=== PATIENT | female | born 1955 | race Caucasian/White ===

== ENCOUNTER 2016-10-30 19:29 | Emergency (ER) | payer BC ==
[2016-10-30 19:46] VITALS: BP 133/78; PULSE 73; RESP 18; TEMP 97.6
[2016-10-30] MEDS ORDERED: DIPH,PERTUS(ACELL)TETVAC-LF 0.5 ML VIAL IM ONE (20:06)
--- NOTE | 2016-10-30 20:12 | ED ---
General Adult HPI - General Chief complaint: Wound/Laceration Stated complaint: Finger/Lac Time Seen by Provider: 10/30/16 19:50 Source: patient, RN notes reviewed Mode of arrival: wheelchair Limitations: no limitations - History of Present Illness Initial comments: This is a 60-year-old female presents with a laceration to the left middle finger. Patient states this happened around 5:30 when she was using a knife to cut meat. Patient states he actually sliced the top of her middle finger. Patient states she is not up-to-date on her tetanus shot. Patient states she was treated at urgent care for this but they were not able to suture the finger due to too much pain. Patient has medical history significant for diabetes and complex regional pain syndrome. Patient denies any numbness/weakness or tingling. Patient denies any recent fever, chills, shortness breath, chest pain , abdominal pain, nausea/vomiting/diarrhea, back pain, hematuria, headache, or visual changes, or any other complaints. - Related Data Home Medications Medication Instructions Recorded Confirmed DULoxetine HCL [Cymbalta] 30 mg PO HS 10/03/15 09/24/16 Nicotine [Nicotrol] 1 applic INHALATION Q4H PRN 10/03/15 09/24/16 metFORMIN HCL [Glucophage] 500 mg PO QAM 12/24/15 09/24/16 Cyclobenzaprine [Flexeril] 5 mg PO TID PRN 07/28/16 09/24/16 hydrOXYzine PAMOATE [Vistaril] 25 mg PO BID PRN 07/28/16 09/24/16 oxyCODONE-APAP 10-325MG [Percocet 1 - 2 tab PO Q6HR PRN 07/28/16 09/24/16 10-325 mg] Previous Rx's Medication Instructions Recorded Cephalexin [Keflex] 500 mg PO Q12HR 5 Days 10/30/16 Allergies Allergy/AdvReac Type Severity Reaction Status Date / Time Penicillins Allergy Unknown Verified 10/30/16 19:46 Sulfa (Sulfonamide Allergy Rash/Hives Verified 10/30/16 19:46 Antibiotics) steriods AdvReac "increased Uncoded 10/30/16 19:46 blood sugar very high" Review of Systems ROS Statement: Those systems with pertinent positive or pertinent negative responses have been documented in the HPI. ROS Other: All systems not noted in ROS Statement are negative. Past Medical History Past Medical History: Diabetes Mellitus, Hyperlipidemia, Hypertension Additional Past Medical History / Comment(s): hx gout, spine-T3 hemangioma, L shoulder torn rotator cuff, varicose veins, severe carpal tunnel, spinal disk problems, Reflex Sympathetic Dystrophy History of Any Multi-Drug Resistant Organisms: None Reported Past Surgical History: Back Surgery, Bladder Surgery, Cholecystectomy, Hysterectomy, Joint Replacement, Orthopedic Surgery Additional Past Surgical History / Comment(s): lumbar laminectomy decompression interbody fusion L4-5, cervical FUSION, TOTAL LEFT KNEE, LEFT KNEE REVISION , BLADDER SUSPENSION, colonoscopy, florence bunionectomies , bilateral "eye lifts" Past Anesthesia/Blood Transfusion Reactions: Motion Sickness, Postoperative Nausea & Vomiting (PONV) Past Psychological History: Anxiety, Depression, Panic Disorder Additional Psychological History / Comment(s): . Smoking Status: Former smoker Past Alcohol Use History: None Reported Additional Past Alcohol Use History / Comment(s): STARTED SMOKING AGE 14, 1969, QUIT 2007, USES NICOTROL INHALER daily Past Drug Use History: None Reported - Past Family History Mother Family Medical History: Cancer Additional Family Medical History / Comment(s): Mother of lung cancer at age 58 yrs. Father Additional Family Medical History / Comment(s): Father was an alcoholic. General Exam - General Exam Comments Initial Comments: General: The patient is awake and alert, in no distress, and does not appear acutely ill. Neck: The neck is supple, there is no tenderness or JVD. Cardiovascular: There is a regular rate and rhythm. No murmur, rub or gallop is appreciated. Respiratory: Lungs are clear to auscultation, respirations are non-labored, breath sounds are equal. No wheezes, stridor, rales, or rhonchi. Musculoskeletal: There is tenderness to palpation over the third digit of the left hand that correlates with a laceration to the tip of the third digit of the left hand. Full range of motion, strength 5/5 and Sensation intact. Radial pulses 2+ bilaterally. Capillary refill is normal at less than 2 seconds. Neurological: A&O x 3. CN II-XII intact, There are no obvious motor or sensory deficits. Coordination appears grossly intact. Speech is normal. Skin: there is a laceration that is approximately 1.5 cm to the 3rd digit of the left hand distal to the DIP joint. Skin is warm and dry and no rashes or lesions are noted. Psychiatric: Normal mood and affect. Limitations: no limitations Course Vital Signs 10/30/16 19:41 Temperature 97.6 F Pulse Rate 73 Respiratory 18 Rate Blood Pressure 133/78 O2 Sat by Pulse 99 Oximetry Medical Decision Making - Medical Decision Making This is a 60-year-old female with a laceration to the tip of the third digit of the left hand. On physical exam there is a laceration that is approximately 1.5 cm to the 3rd digit of the left hand distal to the DIP joint. An x-ray done of the hand in review showed: Focal soft tissue swelling. The bones and joints are negative for acute findings. There is no definite radiopaque foreign body. Report read by Dr. Diaz. After digital block was done. Patient's was also present in the room demanded that the patient received "Valium or that I speak with a doctor" before I proceed. The skin was anesthetized with 1% lidocaine. A digital block was used. The laceration was then cleansed and irrigated with normal saline. The wound was inspected, and there was no evidence of injury to deep structures. No foreign body was noted in the wound. A total of 5 skin sutures were placed utilizing 5- 0 Ethilon. Laceration is approx 1.5 cm. discussed that sutures should be removed in 8-10 days. I discussed the patient will be put on a course of Keflex to prevent infection. I discussed suture care. I discussed return parameters. Discussed that patient should follow up with PCP in one to 2 days or return to the [facility] for any worsening symptoms or for any further concerns. Patient and who was also present in the room were receptive to this plan and patient will be discharged home. Disposition Clinical Impression: Laceration Disposition: HOME SELF-CARE Condition: Good Instructions: Care For Your Stitches (ED), Laceration (ED) Additional Instructions: Presents sutures removed in 8-10 days. Please finish entire course of antibiotics. Please do not submerge the wound in water but rinsing and showering are okay. Please follow-up with family doctor in the next 2 days of symptoms have not improved. Please return to emergency room if the symptoms increase or worsen or for any other concerns. Prescriptions: Cephalexin [Keflex] 500 mg PO Q12HR 5 Days Referrals: Megan Pickens DO [Primary Care Provider] - 1-2 days Time of Disposition: 21:27
--- NOTE | 2016-10-30 20:53 | XR ---
EXAMINATION TYPE: XR hand complete LT DATE OF EXAM: 10/30/2016 8:13 PM COMPARISON: NONE HISTORY: Distal end of the left middle finger cut, with knife TECHNIQUE: 3 views FINDINGS: There is mild-plus soft tissue swelling about the distal phalanx of the middle finger. Ther e is no definite radiopaque foreign body. The bones and joints are negative for acute findings. Scattered osteoarthritis changes are appreciated, relatively mild in degree. IMPRESSION: FOCAL SOFT TISSUE SWELLING.
--- NOTE | 2016-10-30 21:30 | ED ---
Medical Decision Making - Medical Decision Making After the patient requested to speak with a doctor. I checked that the affected finger was anesthetized enough to do sutures. At this time the patient agreed to proceed with sutures without my consulting with a physician and without Valium as they requested. Patient tolerated the procedure well. Disposition Clinical Impression: Laceration Disposition: HOME SELF-CARE Condition: Good Instructions: Care For Your Stitches (ED), Laceration (ED) Additional Instructions: Presents sutures removed in 8-10 days. Please finish entire course of antibiotics. Please do not submerge the wound in water but rinsing and showering are okay. Please follow-up with family doctor in the next 2 days of symptoms have not improved. Please return to emergency room if the symptoms increase or worsen or for any other concerns. Prescriptions: Cephalexin [Keflex] 500 mg PO Q12HR 5 Days Referrals: Megan Pickens DO [Primary Care Provider] - 1-2 days Procedures - Procedures Initial comment: The skin was anesthetized with 1% lidocaine. A digital block was used. The laceration was then cleansed and irrigated with normal saline. The wound was inspected, and there was no evidence of injury to deep structures. No foreign body was noted in the wound. A total of 5 skin sutures were placed utilizing 5- 0 Ethilon. Laceration is approx 1.5 cm
== END 2016-10-30 21:33 | disposition home or self-care (01) ==
LOC: EC 19:29
DX: S61.213A Laceration without foreign body of left middle finger without damage to nail, initial encounter (principal); W26.0XXA Contact with knife, initial encounter; Y93.G3 Activity, cooking and baking; E11.9 Type 2 diabetes mellitus without complications; G90.50 Complex regional pain syndrome I, unspecified; Z79.84 Long term (current) use of oral hypoglycemic drugs; Z79.899 Other long term (current) drug therapy; Z88.2 Allergy status to sulfonamides; Z88.0 Allergy status to penicillin; Z88.8 Allergy status to other drugs, medicaments and biological substances; F41.9 Anxiety disorder, unspecified; Z87.891 Personal history of nicotine dependence; Z23 Encounter for immunization
CPT/HCPCS: 12001; 90471; 90715; 99283

== ENCOUNTER 2017-01-27 08:08 | Emergency (ER) | payer MEDICARE, BC ==
[2017-01-27 08:14] VITALS: BP 137/85; PULSE 87; RESP 16; TEMP 97
[2017-01-27] MEDS ORDERED: HYDROmorphone 1 MG/ML 1 ML SYRINGE IM STA (08:34)
--- NOTE | 2017-01-27 08:39 | ED ---
Back Pain HPI - General Chief Complaint: Back Pain/Injury Stated Complaint: back pain Time Seen by Provider: 01/27/17 08:21 Source: patient, RN notes reviewed Limitations: no limitations - History of Present Illness Initial Comments: 61-year-old female presents emergency Department with chief complaint of chronic back pain. Patient just saw Dr. Ayers yesterday for this back pain is scheduled for an MRI and follow-up with Dr. Davis her pain management on Thursday. Patient states that she is been running out of her pain managed that she has a documented a day and half pain is left. Patient states she's had increased pain in which he told Dr. Ayers yesterday. Dr. Ayers feels this is from L3 lumbar radiculopathy. Patient had x-rays performed of her pelvis, hip and back. This was reviewed by Dr. Ayers. Patient states she was here for pre- MRI lab work and states that she can't tolerate the pain so she came here for pain relief. Patient denies any bowel bladder incontinence or retention. Denies any saddle anesthesias. - Related Data Home Medications Medication Instructions Recorded Confirmed DULoxetine HCL [Cymbalta] 30 mg PO HS 10/03/15 09/24/16 Nicotine [Nicotrol] 1 applic INHALATION Q4H PRN 10/03/15 09/24/16 metFORMIN HCL [Glucophage] 500 mg PO QAM 12/24/15 09/24/16 Cyclobenzaprine [Flexeril] 5 mg PO TID PRN 07/28/16 09/24/16 hydrOXYzine PAMOATE [Vistaril] 25 mg PO BID PRN 07/28/16 09/24/16 oxyCODONE-APAP 10-325MG [Percocet 1 - 2 tab PO Q6HR PRN 07/28/16 09/24/16 10-325 mg] Previous Rx's Medication Instructions Recorded Cephalexin [Keflex] 500 mg PO Q12HR 5 Days 10/30/16 HYDROcodone/APAP 10-325MG [Sells 1 tab PO Q6H PRN #15 tab 01/27/17 10-325] Allergies Allergy/AdvReac Type Severity Reaction Status Date / Time Penicillins Allergy Unknown Verified 01/27/17 08:14 Sulfa (Sulfonamide Allergy Rash/Hives Verified 01/27/17 08:14 Antibiotics) steriods AdvReac "increased Uncoded 10/30/16 19:46 blood sugar very high" Review of Systems ROS Statement: Those systems with pertinent positive or pertinent negative responses have been documented in the HPI. ROS Other: All systems not noted in ROS Statement are negative. Past Medical History Past Medical History: Diabetes Mellitus, Hyperlipidemia, Hypertension Additional Past Medical History / Comment(s): hx gout, spine-T3 hemangioma, L shoulder torn rotator cuff, varicose veins, severe carpal tunnel, spinal disk problems, Reflex Sympathetic Dystrophy History of Any Multi-Drug Resistant Organisms: None Reported Past Surgical History: Back Surgery, Bladder Surgery, Cholecystectomy, Hysterectomy, Joint Replacement, Orthopedic Surgery Additional Past Surgical History / Comment(s): lumbar laminectomy decompression interbody fusion L4-5, cervical FUSION, TOTAL LEFT KNEE, LEFT KNEE REVISION , BLADDER SUSPENSION, colonoscopy, florence bunionectomies , bilateral "eye lifts" Past Anesthesia/Blood Transfusion Reactions: Motion Sickness, Postoperative Nausea & Vomiting (PONV) Past Psychological History: Anxiety, Depression, Panic Disorder Additional Psychological History / Comment(s): . Smoking Status: Former smoker Past Alcohol Use History: None Reported Additional Past Alcohol Use History / Comment(s): STARTED SMOKING AGE 14, 1970, QUIT 2007, USES NICOTROL INHALER daily Past Drug Use History: None Reported - Past Family History Mother Family Medical History: Cancer Additional Family Medical History / Comment(s): Mother of lung cancer at age 58 yrs. Father Additional Family Medical History / Comment(s): Father was an alcoholic. General Exam Limitations: no limitations General appearance: alert, in no apparent distress Head exam: Present: atraumatic, normocephalic, normal inspection Respiratory exam: Present: normal lung sounds bilaterally. Absent: respiratory distress, wheezes, rales, rhonchi, stridor Cardiovascular Exam: Present: regular rate, normal rhythm, normal heart sounds. Absent: systolic murmur, diastolic murmur, rubs, gallop, clicks GI/Abdominal exam: Present: soft, normal bowel sounds. Absent: distended, tenderness, guarding, rebound, rigid Extremities exam: Present: other (Lower extremity strength equal bilaterally neurovascular intact) Back exam: Present: tenderness, paraspinal tenderness. Absent: normal inspection (Old surgical scar noted), full ROM (Decreased range of motion secondary to pain), vertebral tenderness Neurological exam: Present: reflexes normal. Absent: motor sensory deficit Course Vital Signs 01/27/17 08:10 Temperature 97 F L Pulse Rate 87 Respiratory 16 Rate Blood Pressure 137/85 O2 Sat by Pulse 98 Oximetry Medical Decision Making - Medical Decision Making 61-year-old female presented for back pain. Patient has chronic back pain had surgery one year ago. Patient had an evaluation by orthopedic surgeon yesterday. Patient scheduled for MRI. Patient be given pain relief patient we given prescriptions Sells though she was advised that she needs to contact her pain management physician if she has not filled the prescription. Patient agrees to plan. Disposition Clinical Impression: Chronic back pain, Lumbar radiculopathy Disposition: HOME SELF-CARE Condition: Stable Instructions: Chronic Back Pain (ED) Additional Instructions: Please return to the Emergency Department if symptoms worsen or any other concerns. Prescriptions: HYDROcodone/APAP 10-325MG [Sells 10-325] 1 tab PO Q6H PRN #15 tab PRN Reason: pain Referrals: Megan Pickens DO [Primary Care Provider] - 1-2 days Time of Disposition: 08:39
== END 2017-01-27 09:08 | disposition home or self-care (01) ==
LOC: EC 08:08
DX: M54.16 Radiculopathy, lumbar region (principal); E11.9 Type 2 diabetes mellitus without complications; F32.9 Major depressive disorder, single episode, unspecified; F41.0 Panic disorder [episodic paroxysmal anxiety]; Z87.891 Personal history of nicotine dependence; Z79.84 Long term (current) use of oral hypoglycemic drugs; Z79.899 Other long term (current) drug therapy; Z88.0 Allergy status to penicillin; Z88.2 Allergy status to sulfonamides; Z88.8 Allergy status to other drugs, medicaments and biological substances
CPT/HCPCS: 99283; 96372; J1170

== ENCOUNTER → 2017-02-12 | Outpatient (CLI) | payer BC, MEDICARE, OTHER ==
[2017-02-12 09:28] LABS: EKG EKG PERFORMED
[2017-02-12 09:43] LABS: Basophils # (A) 0.1 k/uL (0-0.2); Basophils % (A) 1 %; CH 30.5; CHCM 32.5; Eosinophils # (A) 0.2 k/uL (0-0.7); Eosinophils % (A) 2 %; HCT 42.6 % (34.0-46.0); HDW 2.23; HGB 13.8 gm/dL (11.4-16.0); Luc # (Auto) 0.18; Luc % (Auto) 2; Lymphocytes # (A) 2.9 k/uL (1.0-4.8); Lymphocytes % (A) 38 %; MCH 30.5 pg (25.0-35.0); MCHC 32.4 g/dL (31.0-37.0); MCV 94.1 fL (80.0-100.0); Mean Platelet Volume 6.9; Monocytes # (A) 0.6 k/uL (0-1.0); Monocytes % (A) 8 %; Neutrophils # (A) 3.8 k/uL (1.3-7.7); Neutrophils % (A) 49 %; RBC 4.53 m/uL (3.80-5.40); RDW 13.2 % (11.5-15.5); WBC 7.8 k/uL (3.8-10.6); WBC (Perox) 7.53
[2017-02-12 09:59] LABS: INR 1.1 (<1.1); Partial Thromboplastin Time 28.2 sec (22.0-30.0); Prothrombin Time 10.8 sec (9.0-12.0)
[2017-02-12 10:03] LABS: Appearance,Urine Cloudy (Clear); Bacteria,Urine Rare /hpf; Bilirubin,Urine Negative (Negative); Glucose,Urine (UA) 3+ (Negative); Ketones,Urine Negative (Negative); Leukocyte Esterase,Urine Large (Negative); Nitrite,Urine Negative (Negative); PH, Urine 5.5 (5.0-8.0); Particle Count 7604; Protein,Urine Negative (Negative); Specific Gravity,Urine 1.007 (1.001-1.035); Squamous Epithelial Cell,Urine 5 /hpf (0-4); UA Billing (MACRO vs. MICRO) MICRO; Urobilinogen,Urine <2.0 mg/dL (<2.0); WBC,Urine 58 /hpf (0-5)
[2017-02-12 10:06] LABS: ALT 54 U/L (9-52); AST 26 U/L (14-36); Alkaline Phosphatase 108 U/L (38-126); Anion Gap 11 mmol/L; Blood Urea Nitrogen 10 mg/dL (7-17); Calcium 9.3 mg/dL (8.4-10.2); Carbon Dioxide 26 mmol/L (22-30); Chloride 101 mmol/L (98-107); Glucose 180 mg/dL (74-99); Non-African American GFR(MDRD) 60 (>60 ml/min/1.73 sqM); Sodium 138 mmol/L (137-145); Total Bilirubin 0.5 mg/dL (0.2-1.3); Total Protein 7.3 g/dL (6.3-8.2)
== END | disposition home or self-care (01) ==
LOC: LABWHC1 08:45
DX: Z01.818 Encounter for other preprocedural examination (principal); M48.00 Spinal stenosis, site unspecified; Z01.810 Encounter for preprocedural cardiovascular examination
CPT/HCPCS: 36415; 80053; 81001; 85025; 85610; 85730; 93005

== ENCOUNTER → 2017-03-27 | Outpatient (CLI) | payer OTHER ==
--- NOTE | 2017-03-27 10:36 | XR ---
EXAMINATION TYPE: XR lumbar spine 2 or 3V DATE OF EXAM: 03/27/2017 COMPARISON: 08/29/2016 HISTORY: Back pain TECHNIQUE: Three-view lumbar spine FINDINGS: Pedicle screws are present L3-L4 and L5. Disc spacer present L3-4 L4-5. Laminectomy at L3 a nd L4 evident. The pedicle screws at L3 been added as well as a disc spacer at L3-4 from the prior ex am. Alignment appears normal. Some spondylosis is present. Vertebral body heights are preserved. IMPRESSION: 1. Postsurgical changes. No acute osseous abnormality evident.
== END ==
LOC: RADXRMAIN 09:18
DX: M54.5 Low back pain (principal); Z98.890 Other specified postprocedural states
CPT/HCPCS: 72100

== ENCOUNTER → 2017-06-25 | Outpatient (CLI) | payer OTHER, MEDICARE, BC ==
--- NOTE | 2017-06-25 09:48 | XR ---
EXAMINATION TYPE: XR lumbar spine 2 or 3V DATE OF EXAM: 06/25/2017 CLINICAL HISTORY: Back pain, follow up study for fusion surgery 4 months ago TECHNIQUE: Frontal and lateral images of the lumbar spine are obtained. COMPARISON: Lumbar spine x-ray March 27, 2017 FINDINGS: There are 5 lumbar type vertebral bodies redemonstrated. The lumbar spine redemonstrates satisfactory alignment without evidence of acute fracture or dislocation. Vertebral body heights and disk space heights are within normal limits above L3 level. There is posterior fusion hardware L3-L5 levels bilaterally with laminectomy defects and spinous process resection redemonstrated. Metallic d isc material L3-L4 and L4-L5 levels is again seen. There is mild anterior spurring in the lower thora cic and upper lumbar spine redemonstrated. Some vascular calcification of overlying abdominal aorta i s again seen. Cholecystectomy clips are noted. IMPRESSION: Overall stable findings, postsurgical changes L3-L5 levels with stable and satisfactory a lignment redemonstrated.
--- NOTE | 2017-06-25 11:15 | MR ---
EXAMINATION TYPE: MR lumbar spine wo con DATE OF EXAM: 06/25/2017 COMPARISON: Radiographs 06/25/2017 HISTORY: 61-year-old female spondylolisthesis lsp, back pain, follow-up lumbar fusion 4 months ago. TECHNIQUE: Multiplanar, multisequence images of the lumbar spine were acquired. FINDINGS: Surgical changes of L3-L5 posterior and interbody fusion with fixed grade 1 retrolisthesis at L4-L5. Corresponding laminectomies. There appears to be trace retrolisthesis above the fusion at L2-L3. Additional trace grade 1 retroli sthesis at T12-L1. Mild to moderate degenerative disc disease with variable mild disc desiccation, minimal disc interspa ce narrowing, and bulging discs. Facet arthropathy throughout the lumbar spine. Conus medullaris is normal. No suspicious bone marrow replacement. At T12-L1, mild diffuse disc bulge without significant canal or foraminal stenosis. Trace grade 1 ret rolisthesis. At L1-L2, mild diffuse disc bulge and mild facet degenerative change. No significant canal or foramin al stenosis. At L2-L3, the level above the fusion, there is hypertrophic facet arthropathy with ligamentum flavum thickening, trace grade 1 retrolisthesis, and bulging disc. Changes mildly narrow the spinal canal an d cause mild bilateral neural foraminal stenosis. At the fused L3-L4 level, there is residual eccentric rightward bulging disc. Dorsal decompression of the spinal canal. There may be at least a moderate right neuroforaminal stenosis. Limitations due to metal hardware artifact. At the fused L4-L5 level, there is grade 1 anterolisthesis with dorsal decompression of the thecal sa c. There is mild right neuroforaminal stenosis. At L5-S1, there is facet degenerative change and bulging disc. Changes result in mild left greater th an right neuroforaminal stenosis without spinal canal stenosis. No prevertebral or paravertebral soft tissue abnormality seen. Prominent urinary bladder distention probably voluntary retention can be correlated clinically. IMPRESSION: 1. Status post L3-L5 posterior and interbody fusion with a fixed grade 1 anterolisthesis at L4-L5. Th ere is trace grade 1 retrolisthesis above the fusion at L2-L3 and also at T12-L1. 2. Moderate multilevel degenerative disc disease and facet arthropathy. 3. Bulging disks, thickened ligamentum flavum, and the trace retrolisthesis contribute to mild spinal canal stenosis above the fusion at L2-L3. Mild bilateral neuroforaminal stenosis at this level. 4. Suspect at least a moderate right neuroforaminal stenosis at the fused L3-L4 level secondary to re sidual eccentric disc material. 5. Variable mild neuroforaminal narrowing at L4-L5 and L5-S1 as above.
== END | disposition home or self-care (01) ==
LOC: RADMRIMAIN 09:16
DX: M48.02 Spinal stenosis, cervical region (principal); M99.73 Connective tissue and disc stenosis of intervertebral foramina of lumbar region; M43.16 Spondylolisthesis, lumbar region; M51.36 Other intervertebral disc degeneration, lumbar region; M46.96 Unspecified inflammatory spondylopathy, lumbar region; Z98.890 Other specified postprocedural states
CPT/HCPCS: 72100; 72148

== ENCOUNTER → 2017-11-12 | Outpatient (CLI) | payer MEDICARE, BC ==
--- NOTE | 2017-11-12 10:12 | XR ---
EXAMINATION TYPE: XR lumbar spine 2 or 3V DATE OF EXAM: 11/12/2017 CLINICAL HISTORY: Low back pain since lumbar surgery TECHNIQUE: Frontal and lateral images of the lumbar spine are obtained. COMPARISON: None FINDINGS: There are 5 lumbar type vertebral bodies identified. Surgical fixation is seen of the L3-L 5 vertebral bodies with intervertebral disc cages, pedicular screws and fixation rods. Resection of t he posterior elements is also seen at these levels. The lumbar spine shows satisfactory alignment wi thout evidence of acute fracture or dislocation. Mild multilevel degenerative changes of the thoracic spine are seen as anterior osteophytes, endplate sclerosis, intervertebral disc space narrowing and facet arthropathy. There is a minimal levoscoliotic curvature of the lumbar spine. The overlying sof t tissue appears unremarkable. Cholecystectomy clips are incidentally noted. IMPRESSION: 1. Postoperative changes of the lower lumbar spine without evidence of malalignment. 2. No evidence of acute fracture of the lumbar spine. 3. Mild multilevel degenerative changes of the lumbar spine and minimal levoscoliotic curvature.
== END | disposition home or self-care (01) ==
LOC: RADXRMAIN 09:29
DX: M47.816 Spondylosis without myelopathy or radiculopathy, lumbar region (principal); Z98.890 Other specified postprocedural states
CPT/HCPCS: 72100

== ENCOUNTER 2018-01-09 08:31 | Emergency (ER) | payer OTHER, MEDICARE, BC ==
[2018-01-09] MEDS ORDERED: MAG HYDROX/AL HYDROX/SIMETH 30 ML, HYOSCYAMINE ELIXIR 10 ML, CIMETIDINE HCL 300 MG PO STA ×3 (08:50)
[2018-01-09] MEDS ORDERED: MORPHINE SULFATE/PF 10MG/10ML VL IM STA ×2 (08:50→11:10)
[2018-01-09] MEDS ORDERED: DIAZEPAM 5 MG/ML 2 ML INJ IM ONE (08:50)
--- NOTE | 2018-01-09 09:03 | ED ---
General Adult HPI - General Chief complaint: Back Pain/Injury Stated complaint: Abd Pain, back pain Time Seen by Provider: 01/09/18 08:37 Source: patient, RN notes reviewed Mode of arrival: wheelchair Limitations: no limitations - History of Present Illness Initial comments: 62-year-old female presents for flareup of chronic back pain. She takes narcotics at home for her back pain. She had a recent sciatic ablation and states she just continues to have this terrible pain. Her doctor said it could take up to 3 weeks for it to improve but she does not feel as if she is better and she is 2 weeks out. They state they're here for pain control. She states the Motrin has been causing her stomach to hurt as well. They deny any nausea vomiting any loss of bowel or bladder function. The simply needs something to help reduce the pain so that the patient can get some rest. Patient states it' s more in the right buttock area patient is very tearful on exam. Patient denies any recent fever, chills, shortness of breath, chest pain, nausea vomiting, numbness or tingling, dysuria or hematuria, constipation or diarrhea, headaches or visual changes, or any other current symptoms. - Related Data Home Medications Medication Instructions Recorded Confirmed DULoxetine HCL [Cymbalta] 30 mg PO HS 10/03/15 09/15/17 oxyCODONE-APAP 10-325MG [Percocet 0.5 - 1 tab PO Q6HR PRN 07/28/16 09/15/17 10-325 mg] Diazepam [Valium] 2.5 - 5 mg PO TID PRN 09/07/17 09/15/17 Previous Rx's Medication Instructions Recorded Omeprazole [PriLOSEC] 20 mg PO AC-BID #60 cap 09/15/17 hydrOXYzine PAMOATE [Vistaril] 25 mg PO BID PRN #20 cap 01/09/18 Allergies Allergy/AdvReac Type Severity Reaction Status Date / Time Penicillins Allergy Unknown Verified 01/09/18 08:32 Sulfa (Sulfonamide Allergy Rash/Hives Verified 01/09/18 08:32 Antibiotics) steriods AdvReac "increased Uncoded 01/09/18 08:32 blood sugar very high" Review of Systems ROS Statement: Those systems with pertinent positive or pertinent negative responses have been documented in the HPI. ROS Other: All systems not noted in ROS Statement are negative. Past Medical History Past Medical History: Diabetes Mellitus, Hyperlipidemia, Hypertension Additional Past Medical History / Comment(s): diet controlled diabetes; spine- T3 hemangioma, L shoulder torn rotator cuff, varicose veins, severe carpal tunnel, spinal disk problems, Reflex Sympathetic Dystrophy; Hx gout History of Any Multi-Drug Resistant Organisms: None Reported Past Surgical History: Back Surgery, Bladder Surgery, Cholecystectomy, Hysterectomy, Joint Replacement, Orthopedic Surgery Additional Past Surgical History / Comment(s): lumbar laminectomy decompression interbody fusion L4-5, cervical FUSION, TOTAL LEFT KNEE, LEFT KNEE REVISION , BLADDER SUSPENSION, colonoscopy, florence bunionectomies , bilateral "eye lifts", nerve ablation on sacrum Past Anesthesia/Blood Transfusion Reactions: Motion Sickness, Postoperative Nausea & Vomiting (PONV) Past Psychological History: Anxiety, Depression, Panic Disorder Smoking Status: Former smoker Past Alcohol Use History: None Reported Past Drug Use History: None Reported - Past Family History Mother Family Medical History: Cancer Additional Family Medical History / Comment(s): Mother of lung cancer at age 58 yrs. Father Additional Family Medical History / Comment(s): Father was an alcoholic. General Exam Limitations: no limitations General appearance: alert, in distress (moderate) Eye exam: Present: normal appearance, PERRL, EOMI. Absent: scleral icterus, conjunctival injection, periorbital swelling Neck exam: Present: normal inspection. Absent: tenderness, meningismus, lymphadenopathy Respiratory exam: Present: normal lung sounds bilaterally. Absent: respiratory distress, wheezes, rales, rhonchi, stridor Cardiovascular Exam: Present: regular rate, normal rhythm, normal heart sounds. Absent: systolic murmur, diastolic murmur, rubs, gallop, clicks GI/Abdominal exam: Present: soft, normal bowel sounds. Absent: distended, tenderness, guarding, rebound, rigid Back exam: Present: normal inspection Neurological exam: Present: alert, oriented X3 Psychiatric exam: Present: normal affect, normal mood Skin exam: Present: warm, dry, intact, normal color. Absent: rash Course Vital Signs 01/09/18 08:32 Pulse Rate 86 Respiratory 20 Rate Blood Pressure 196/93 O2 Sat by Pulse 97 Oximetry Medical Decision Making - Medical Decision Making 62-year-old female presents for flareup of her chronic back pain here for pain management. At this time patient has been given injections and is feeling better. At this time we did discuss continued follow-up outpatient Michael with the pain management doctor. We did discuss return parameters all questions. Patient and family do agree to follow up at this time we will discharge. Disposition Clinical Impression: Chronic pain Disposition: HOME SELF-CARE Condition: Stable Instructions: Chronic Back Pain (ED) Additional Instructions: Please use medication as discussed. Please follow up with family doctor if symptoms have not improved over the next two days. Please return to the emergency room if your symptoms increase or worsen or for any other concerns. Prescriptions: hydrOXYzine PAMOATE [Vistaril] 25 mg PO BID PRN #20 cap PRN Reason: Anxiety Referrals: Seda Christina III, MD [Primary Care Provider] - 1-2 days Time of Disposition: 11:09
[2018-01-09] MEDS ORDERED: HALOPERIDOL LACTATE 5 MG/ML 1 ML VIAL IM STA (10:03)
[2018-01-09] MEDS ORDERED: ONDANSETRON ODT 4 MG TAB PO STA (10:26)
[2018-01-09 12:00] VITALS: BP 152/81; PULSE 66; RESP 18; TEMP 97.5
== END 2018-01-09 12:00 | disposition home or self-care (01) ==
LOC: EC 08:31
DX: G89.29 Other chronic pain (principal); M54.9 Dorsalgia, unspecified; F32.9 Major depressive disorder, single episode, unspecified; F41.0 Panic disorder [episodic paroxysmal anxiety]; Z87.891 Personal history of nicotine dependence; Z79.899 Other long term (current) drug therapy; Z88.0 Allergy status to penicillin; Z88.2 Allergy status to sulfonamides; Z88.8 Allergy status to other drugs, medicaments and biological substances
CPT/HCPCS: 99283; 96372 ×4; J1630; J3360; J2270

== ENCOUNTER 2018-03-10 05:11 | Observation (INO) | payer MEDICARE, BC ==
[2018-03-10] MEDS ORDERED: SODIUM CHLORIDE 0.9% 1,000 ML IV STA (05:38)
[2018-03-10] MEDS ORDERED: MORPHINE SULFATE 4 MG/ML SYRINGE IV STA (05:38)
[2018-03-10] MEDS ORDERED: ONDANSETRON 4 MG/2 ML VIAL IVP STA (05:41)
[2018-03-10 06:13] LABS: Basophils # (A) 0.1 k/uL (0-0.2); Basophils % (A) 1 %; Eosinophils # (A) 0.2 k/uL (0-0.7); Eosinophils % (A) 2 %; HCT 36.6 % (34.0-46.0); HGB 12.3 gm/dL (11.4-16.0); Lymphocytes # (A) 2.9 k/uL (1.0-4.8); Lymphocytes % (A) 27 %; MCH 29.2 pg (25.0-35.0); MCHC 33.6 g/dL (31.0-37.0); MCV 86.8 fL (80.0-100.0); Mean Platelet Volume 6.7; Monocytes # (A) 0.9 k/uL (0-1.0); Monocytes % (A) 8 %; Neutrophils # (A) 6.4 k/uL (1.3-7.7); Neutrophils % (A) 60 %; Platelet Count 291 k/uL (150-450); RBC 4.22 m/uL (3.80-5.40); RDW 12.4 % (11.5-15.5); WBC 10.6 k/uL (3.8-10.6)
[2018-03-10] MEDS ORDERED: LORazepam 2 MG/ML INJ IV STA (06:35)
[2018-03-10 06:36] LABS: ALT 30 U/L (9-52); AST 18 U/L (14-36); Albumin 3.4 g/dL (3.5-5.0); Alkaline Phosphatase 85 U/L (38-126); Anion Gap 9 mmol/L; Blood Urea Nitrogen 10 mg/dL (7-17); Calcium 8.3 mg/dL (8.4-10.2); Carbon Dioxide 24 mmol/L (22-30); Chloride 103 mmol/L (98-107); Glucose 126 mg/dL (74-99); Sodium 136 mmol/L (137-145); Total Bilirubin 0.5 mg/dL (0.2-1.3)
--- NOTE | 2018-03-10 06:55 | ED ---
Back Pain HPI - General Chief Complaint: Back Pain/Injury Stated Complaint: headache,back pain Time Seen by Provider: 03/10/18 05:24 Source: patient Limitations: no limitations - History of Present Illness Initial Comments: 62 years old female presents with a worsening of the back pain, she denies any trauma she has a chronic back pain she had the surgery at the lumbar spine she also had a stimulator for him on now February 25 and was not effective the stimulator was removed on now March 09. Now she is complaining about the headache and the back pain is worse she denies any fever no chills no chest pain no shortness of breath no abdominal pain no bowel or bladder dysfunction - Related Data Home Medications Medication Instructions Recorded Confirmed DULoxetine HCL [Cymbalta] 30 mg PO HS 10/03/15 03/10/18 oxyCODONE-APAP 10-325MG [Percocet 0.5 - 1 tab PO Q6HR PRN 07/28/16 03/10/18 10-325 mg] Diazepam [Valium] 2.5 - 5 mg PO TID PRN 09/07/17 03/10/18 Allergies Allergy/AdvReac Type Severity Reaction Status Date / Time Penicillins Allergy Unknown Verified 03/10/18 07:53 Sulfa (Sulfonamide Allergy Rash/Hives Verified 03/10/18 07:53 Antibiotics) steriods AdvReac "increased Uncoded 01/09/18 08:32 blood sugar very high" Review of Systems ROS Statement: Those systems with pertinent positive or pertinent negative responses have been documented in the HPI. ROS Other: All systems not noted in ROS Statement are negative. Past Medical History Past Medical History: Diabetes Mellitus, Hyperlipidemia, Hypertension Additional Past Medical History / Comment(s): diet controlled diabetes; spine- T3 hemangioma, L shoulder torn rotator cuff, varicose veins, severe carpal tunnel, spinal disk problems, Reflex Sympathetic Dystrophy; Hx gout History of Any Multi-Drug Resistant Organisms: None Reported Past Surgical History: Back Surgery, Bladder Surgery, Cholecystectomy, Hysterectomy, Joint Replacement, Orthopedic Surgery Additional Past Surgical History / Comment(s): lumbar laminectomy decompression interbody fusion L4-5, cervical FUSION, TOTAL LEFT KNEE, LEFT KNEE REVISION , BLADDER SUSPENSION, colonoscopy, florence bunionectomies , bilateral "eye lifts", nerve ablation on sacrum Past Anesthesia/Blood Transfusion Reactions: Motion Sickness, Postoperative Nausea & Vomiting (PONV) Past Psychological History: Anxiety, Depression, Panic Disorder Smoking Status: Former smoker Past Alcohol Use History: None Reported Past Drug Use History: None Reported - Past Family History Mother Family Medical History: Cancer Additional Family Medical History / Comment(s): Mother of lung cancer at age 58 yrs. Father Additional Family Medical History / Comment(s): Father was an alcoholic. General Exam - General Exam Comments Initial Comments: General: The patient is awake and alert and in severe distress because of the pain Skin: Skin is warm and dry and no rashes or lesions are noted. Noticed 3 small spots in the L1 to L2 level where she had a stimulator inserted, it does not look infected at this point Eye: Pupils are equal, round and reactive to light, extra-ocular movements are intact; there is normal conjunctiva bilaterally. Ears, nose, mouth and throat: There are moist mucous membranes and no oral lesions. Neck: The neck is supple, there is no tenderness Cardiovascular: There is a regular rate and rhythm. No murmur, rub or gallop is appreciated. Respiratory: To auscultation bilateral, no wheezing no rhonchi no distress respiratory gomez noticed Gastrointestinal: Soft, non-distended, non-tender abdomen without masses or organomegaly noted. There is no rebound or guarding present. Bowel sounds are unremarkable. Back: There is no tenderness to palpation in the midline. There is no obvious deformity. Musculoskeletal: Normal ROM, no tenderness, There is no pedal edema. There is no calf tenderness or swelling. No cords were appreciated. Neurological: CN II-XII intact, Cranial nerves III through XII are intact. There are no obvious motor or sensory deficits. Coordination appears grossly intact. Speech is normal. Psychiatric: Cooperative, crying with the pain and very anxious Limitations: no limitations Course Vital Signs 03/10/18 03/10/18 05:14 07:07 Temperature 99.1 F Pulse Rate 83 66 Respiratory 20 18 Rate Blood Pressure 177/94 132/71 O2 Sat by Pulse 97 97 Oximetry He presented with the back pain worsening, head CT is normal CBC is unremarkable , comprehensive metabolic panel is negative C-reactive protein is 156 considering that Lul Lerma ordered blood cultures urine cultures and empiric antibiotics she be admitted to hospitalist service and consult ID, she had a stimulator perianal stimulator was removed and concerned about infection in the lumbar region and possibility of discitis Medical Decision Making - Lab Data Result diagrams: 03/10/18 05:57 03/10/18 05:57 Lab Results 03/10/18 03/10/18 Range/Units 05:57 05:57 WBC 10.6 (3.8-10.6) k/uL RBC 4.22 (3.80-5.40) m/uL Hgb 12.3 (11.4-16.0) gm/dL Hct 36.6 (34.0-46.0) % MCV 86.8 (80.0-100.0) fL MCH 29.2 (25.0-35.0) pg MCHC 33.6 (31.0-37.0) g/dL RDW 12.4 (11.5-15.5) % Plt Count 291 (150-450) k/uL Neutrophils % 60 % Lymphocytes % 27 % Monocytes % 8 % Eosinophils % 2 % Basophils % 1 % Neutrophils # 6.4 (1.3-7.7) k/uL Lymphocytes # 2.9 (1.0-4.8) k/uL Monocytes # 0.9 (0-1.0) k/uL Eosinophils # 0.2 (0-0.7) k/uL Basophils # 0.1 (0-0.2) k/uL Sodium 136 L (137-145) mmol/L Potassium 4.0 (3.5-5.1) mmol/L Chloride 103 (98-107) mmol/L Carbon Dioxide 24 (22-30) mmol/L Anion Gap 9 mmol/L BUN 10 (7-17) mg/dL Creatinine 0.78 (0.52-1.04) mg/dL Est GFR (CKD-EPI)AfAm >90 (>60 ml/min/1.73 sqM) Est GFR (CKD-EPI)NonAf 82 (>60 ml/min/1.73 sqM) Glucose 126 H (74-99) mg/dL Calcium 8.3 L (8.4-10.2) mg/dL Total Bilirubin 0.5 (0.2-1.3) mg/dL AST 18 (14-36) U/L ALT 30 (9-52) U/L Alkaline Phosphatase 85 (38-126) U/L C-Reactive Protein 156.3 H (<10.0) mg/L Total Protein 6.0 L (6.3-8.2) g/dL Albumin 3.4 L (3.5-5.0) g/dL Disposition Clinical Impression: Back pain, Elevated C-reactive protein Disposition: ADMITTED IP TO THIS HOSP Condition: Good Referrals: Seda Christina III, MD [Primary Care Provider] - 1-2 days
--- NOTE | 2018-03-10 06:57 | CT ---
EXAM: CT Head Without Intravenous Contrast CLINICAL HISTORY: Its. reason CT Reason: Pain TECHNIQUE: Axial computed tomography images of the head/brain without intravenous contrast. CTDI is 60.3 mGy and DLP is 1072.3 mGy-cm. This CT exam was performed using one or more of the following dose reduction techniques: automated exposure control, adjustment of the mA and/or kV according to patient size, and/or use of iterative reconstruction technique. COMPARISON: 08/29/16 FINDINGS: Brain: Periventricular low density likely small vessel ischemic change. Focal hypodensity in the region of the left anterior limb of the internal capsule, unchanged likely chronic lacunar infarct No hemorrhage. Ventricles: Unremarkable. No ventriculomegaly. Bones/joints: Unremarkable. No acute fracture. Soft tissues: Unremarkable. Sinuses: Mild mucosal thickening in the ethmoid sinuses. Mastoid air cells: Unremarkable as visualized. No mastoid effusion. Other findings: Mild diffuse atrophy. IMPRESSION: No acute intracranial abnormality. Mild atrophy and chronic small vessel ischemic change.
[2018-03-10 07:07] LABS: C Reactive Protein 156.3 mg/L (<10.0)
[2018-03-10] MEDS ORDERED: cefTRIAXone 2,000 MG in SODIUM CHLORIDE 0.9% 100 ML IVPB STA (07:55)
[2018-03-10] MEDS ORDERED: cefTRIAXone IN SWFI 2,000 MG/20 ML SYRINGE IVP STA (07:58)
[2018-03-10] MEDS ORDERED: NALOXONE 0.4 MG/ML 1 ML VIAL IV PRN (07:59)
[2018-03-10] MEDS ORDERED: ONDANSETRON 4 MG/2 ML VIAL IVP PRN (07:59)
[2018-03-10] MEDS ORDERED: MORPHINE SULFATE 2 MG/ML SYRINGE IV PRN (07:59)
[2018-03-10] MEDS ORDERED: LORazepam 2 MG/ML INJ IV PRN (07:59)
[2018-03-10] MEDS ORDERED: oxyCODONE-APAP 10-325MG 1 EACH TAB PO PRN (08:05)
[2018-03-10] MEDS ORDERED: DIAZEPAM 5 MG TAB PO PRN (08:05)
[2018-03-10 08:31] LABS: Appearance,Urine Clear (Clear); Bacteria,Urine Rare /hpf; Bilirubin,Urine Negative (Negative); Blood,Urine Negative (Negative); Color,Urine Colorless; Glucose,Urine (UA) Trace (Negative); Ketones,Urine Negative (Negative); Leukocyte Esterase,Urine Small (Negative); Nitrite,Urine Negative (Negative); Protein,Urine Negative (Negative); Specific Gravity,Urine 1.004 (1.001-1.035); Squamous Epithelial Cell,Urine <1 /hpf (0-4); Urobilinogen,Urine <2.0 mg/dL (<2.0); WBC,Urine 2 /hpf (0-5)
[2018-03-10] MEDS ORDERED: VANCOMYCIN 1,500 MG in SODIUM CHLORIDE 0.9% 250 ML IVPB ONE (09:00)
[2018-03-10 11:18] LABS: Glucose,Whole Blood 130 mg/dL (75-99)
[2018-03-10] MEDS ORDERED: MORPHINE SULFATE 4 MG/ML SYRINGE IM STA (12:31)
[2018-03-10] MEDS ORDERED: MORPHINE SULFATE 4 MG/ML SYRINGE IVP STA (12:32)
[2018-03-10] MEDS ORDERED: KETOROLAC 30 MG/ML 1 ML VIAL IVP PRN (14:37)
[2018-03-10 15:21] VITALS: BP 189/107; PULSE 106; RESP 16; TEMP 97.9
--- NOTE | 2018-03-10 15:28 | MR ---
EXAMINATION TYPE: MR lumbar spine wo/w con DATE OF EXAM: 03/10/2018 COMPARISON: Lumbar spine plain film 11/12/2017, prior lumbar MRI 06/25/2017 HISTORY: Severe Back Pain, Prior Surgery, Recent Removal of Pain Pump, Gadavist 7ml TECHNIQUE: Multiplanar, multisequence images of the lumbar spine were acquired utilizing [address] gadolinium contrast. L1-L2: Circumferential posterior disc bulge causes mild anterior mass effect on the thecal sac. L2-L3: Broad-based posterior disc bulge is present there is facet arthropathy with hypertrophy ligame ntum flavum encroaching on the lateral recesses, there is trefoil appearance of the thecal sac, later al extension of endplate disc complex causes some bilateral foraminal encroachment. L3-L4: Laminectomy changes noted, no foraminal encroachment or central stenosis. L4-L5: Laminectomy changes present. No central stenosis or foraminal encroachment. L5-S1: Facet arthropathy change is present similar to prior exam, hypertrophy ligamentum flavum encro aches on the lateral recesses. Circumferential extension of endplate disc complex causes some mild ri ght greater than left foraminal encroachment. Posterior lumbar fusion at L3-4-5 is present, susceptibility artifact causes some loss of detail, the re is some motion on the exam. Minimal anterolisthesis grade 1 L4-5 is thought to be stable. There is multilevel spondylosis with loss of disc height and signal at the intervertebral levels compatible w ith disc desiccation and degenerative disc disease. Intervertebral spacing material present at L3-4, L4-5. No abnormal enhancement following contrast administration. IMPRESSION: Exam is somewhat degraded by artifact and motion. Postop changes as described. Degenerative disc dise ase and facet arthropathy with some mild canal encroachment at L2-3.
[2018-03-10] MEDS ORDERED: HEPARIN SODIUM,PORCINE 5,000 UNIT/ML 1 ML VIAL SQ SCH (16:00)
--- NOTE | 2018-03-10 18:06 | P.HPIM ---
History of Present Illness Patient is 62-year-old female came in with compensative back pain with a tingling and numbness going into bilateral hip area. Patient clinically appears to be hyper-exaggerating her pain, patient had infection of the lumbar spine apparently in the past patient had multiple surgeries to the back. MRI of the back was obtained and patient was evaluated by infectious disease there is no significant abnormality that accounts to her significant pain on the MRI of the lumbar spine. Patient also says she was diagnosed with chronic regional pain syndrome in the left leg patient has some swelling in the left leg but doesn't have any tenderness no bluish discoloration my suspicion is low that patient has chronic regional pain syndrome in the left leg. Patient appears to have some narcotic seeking behavior. Patient was recommended to follow with the body technician/painter in the past. Patient is on Percocet at home. Patient does not have any red flag signs of chronic low back pain. Patient is comparing of 10/10 pain subjectively objectively I don't see any evidence that I can account for her pain. Patient will be discharged today to follow with PCP and pain management and back surgeon as an outpatient. I do not believe any further acute intervention is necessary during this hospitalization. Counseling regarding excess opiate usage was provided. Patient was discussed requesting for Dilaudid specifically here. Declined to take Toradol for pain. Review of Systems REVIEW OF SYSTEMS: CONSTITUTIONAL: No fever, no malaise, no fatigue. HEENT: No recent visual problems or hearing problems. Denied any sore throat. CARDIOVASCULAR: No chest pain, orthopnea, PND, no palpitations, no syncope. PULMONARY: No shortness of breath, no cough, no hemoptysis. GASTROINTESTINAL: No diarrhea, no nausea, no vomiting, no abdominal pain. Normoactive bowel sounds. NEUROLOGICAL: No headaches, no weakness, no numbness. HEMATOLOGICAL: Denies any bleeding or petechiae. GENITOURINARY: Denies any burning micturition, frequency, or urgency. MUSCULOSKELETAL/RHEUMATOLOGICAL: Back pain as mentioned above ENDOCRINE: Denies any polyuria or polydipsia. The rest of the 14-point review of systems is negative. Past Medical History Past Medical History: Diabetes Mellitus, Hyperlipidemia, Hypertension, Osteoarthritis (OA) Additional Past Medical History / Comment(s): NIDDM-diet controlled, chronic low back pain, spinal disc disease, T3 spinal hemangioma, L shoulder torn rotator cuff, severe bilateral carpal tunnel syndrome, reflex sympathetic dystrophy, L thumb gout, varicose veins bilateral legs, incontinence at times. History of Any Multi-Drug Resistant Organisms: None Reported Past Surgical History: Back Surgery, Bladder Surgery, Cholecystectomy, Hysterectomy, Joint Replacement, Orthopedic Surgery Additional Past Surgical History / Comment(s): lumbar laminectomies/ decompression interbody fusion L3-L5, cervical fusion C5-C7, TOTAL LEFT KNEE, LEFT KNEE REVISION , BLADDER SUSPENSION, colonoscopy, florence bunionectomies , bilateral "eye lifts", nerve ablation on sacrum, R elbow cyst drained. Past Anesthesia/Blood Transfusion Reactions: Motion Sickness, Postoperative Nausea & Vomiting (PONV) Additional Past Anesthesia/Blood Transfusion Reaction / Comment(s): Pt is clausterphobic. Smoking Status: Former smoker - Past Family History Mother Family Medical History: Cancer Additional Family Medical History / Comment(s): Mother of lung cancer at age 58 yrs. Father Additional Family Medical History / Comment(s): Father was an alcoholic. Medications and Allergies Home Medications Medication Instructions Recorded Confirmed Type DULoxetine HCL [Cymbalta] 30 mg PO HS 10/03/15 03/10/18 History oxyCODONE-APAP 10-325MG [Percocet 0.5 - 1 tab PO Q6HR PRN 07/28/16 03/10/18 History 10-325 mg] Diazepam [Valium] 2.5 - 5 mg PO TID PRN 09/07/17 03/10/18 History Allergies Allergy/AdvReac Type Severity Reaction Status Date / Time Penicillins Allergy Unknown Verified 03/10/18 07:53 Sulfa (Sulfonamide Allergy Rash/Hives Verified 03/10/18 07:53 Antibiotics) steriods AdvReac "increased Uncoded 01/09/18 08:32 blood sugar very high" Physical Exam Vitals: Vital Signs Temp Pulse Pulse Resp BP BP Pulse Ox 03/10/18 15:19 97.9 F 106 H 16 189/107 95 03/10/18 08:55 98.2 F 77 18 135/79 97 03/10/18 07:07 66 18 132/71 97 03/10/18 05:14 99.1 F 83 20 177/94 97 Intake and Output 03/10/18 03/10/18 03/10/18 06:59 14:59 22:59 Other: Weight 72.575 kg PHYSICAL EXAMINATION: GENERAL: The patient is alert and oriented x3, not in any acute distress. Well developed, well nourished. HEENT: Pupils are round and equally reacting to light. EOMI. No scleral icterus. No conjunctival pallor. Normocephalic, atraumatic. No pharyngeal erythema. No thyromegaly. CARDIOVASCULAR: S1 and S2 present. No murmurs, rubs, or gallops. PULMONARY: Chest is clear to auscultation, no wheezing or crackles. ABDOMEN: Soft, nontender, nondistended, normoactive bowel sounds. No palpable organomegaly. MUSCULOSKELETAL: Patient does have previous scars from surgeries in the left knee back some discoloration the back although does not appear to have any cellulitis or infection clinically. Patient was complaining of greenish discharge from that back although I do not see any skin breakdown for any greenish discharge patient has a scab from previous surgeries EXTREMITIES: No cyanosis, clubbing, or pedal edema. NEUROLOGICAL: Gross neurological examination did not reveal any focal deficits. SKIN: No rashes. Results CBC & Chem 7: 03/10/18 05:57 03/10/18 05:57 Labs: Abnormal Lab Results - Last 24 Hours (Table) 03/10/18 03/10/18 03/10/18 Range/Units 05:57 08:15 11:15 Sodium 136 L (137-145) mmol/L Glucose 126 H (74-99) mg/dL POC Glucose (mg/dL) 130 H (75-99) mg/dL Calcium 8.3 L (8.4-10.2) mg/dL C-Reactive Protein 156.3 H (<10.0) mg/L Total Protein 6.0 L (6.3-8.2) g/dL Albumin 3.4 L (3.5-5.0) g/dL Urine Glucose (UA) Trace H (Negative) Ur Leukocyte Esterase Small H (Negative) Urine Bacteria Rare H (None) /hpf Microbiology - Last 24 Hours (Table) 03/10/18 08:15 Urine Culture - Preliminary Urine,Voided Thrombosis Risk Factor Assmnt - Choose All That Apply Any of the Below Risk Factors Present?: Yes Each Factor Represents 1 point: Obesity (BMI >25) Other Risk Factors: Yes Each Risk Factor Represents 2 Points: Age 61-74 years Other congenital or acquired thrombophilia - If yes, enter type in comment: No Thrombosis Risk Factor Assessment Total Risk Factor Score: 3 Thrombosis Risk Factor Assessment Level: Moderate Risk Assessment and Plan Plan: -Back pain: Rule out osteomyelitis MRI is not significant for any cauda equina syndrome. Patient able to ambulate even without Walker when I went to the room , I do not believe patient will require home physical therapy may benefit from outpatient physical therapy. -Hypertension as per history but I do not see that patient is on any medication patient blood pressures are not high enough to start her on any antidepressant medications. -Type 2 diabetes mellitus as per history all are do not see any medications again and blood sugars are essentially within normal limits. -osteoarthritis -Ruled out osteomyelitis of the back. -Depression -Chronic low back pain
--- NOTE | 2018-03-10 18:07 | P.DS ---
Providers Date of admission: 03/10/18 08:04 Attending physician: Lan Marrufo Consults: 03/10/18 07:59 Consult Physician Stat Consulting Provider: Sergio Reyes Consult Reason/Comments: Elevated C-reactive protein, worsening of the back pain, discitis? Do you want consulting provider notified?: Yes 03/10/18 14:44 Consult Physician Routine Consulting Provider: Rosi Medrano Consult Reason/Comments: Pain Management Do you want consulting provider notified?: Yes Primary care physician: Seda Christina [facility] Course: Please refer to my HPI Patient Condition at Discharge: Good Plan - Discharge Summary Discharge Rx Participant: No New Discharge Prescriptions: No Action DULoxetine HCL [Cymbalta] 30 mg PO HS oxyCODONE-APAP 10-325MG [Percocet 10-325 mg] 0.5 - 1 tab PO Q6HR PRN PRN Reason: Pain Diazepam [Valium] 2.5 - 5 mg PO TID PRN PRN Reason: Anxiety Discharge Medication List DULoxetine HCL [Cymbalta] 30 mg PO HS 10/03/15 [History] oxyCODONE-APAP 10-325MG [Percocet 10-325 mg] 0.5 - 1 tab PO Q6HR PRN 07/28/16 [ History] Diazepam [Valium] 2.5 - 5 mg PO TID PRN 09/07/17 [History] Follow up Appointment(s)/Referral(s): Seda Christina III, MD [Primary Care Provider] - 03/22/18 9:30 am (With Charis) Patient Instructions/Handouts: Chronic Pain (DC) Discharge Disposition: HOME SELF-CARE
--- NOTE | 2018-03-10 18:16 | CONS ---
CONSULTATION DATE OF SERVICE: 03/10/2018 REASON FOR CONSULTATION: Back pain with elevated CRP with concern for possible diskitis. HISTORY OF PRESENT ILLNESS: The patient is a 62-year-old female who does have a history of chronic back pain for which the patient did have multiple surgeries done including laminectomy by Dr. Qiu at [place]. She recently has been seen by a pain specialist with a pain stimulator was placed on February 15. The patient says that she is having more pain in the back area. Describes the pain to be more of a sharp almost 10/10, with some radiation to the right leg. Did not mention any bowel or bladder problem. The patient denies any high-grade fever, rigors and chills. Has been complaining of headache as well. The pain pump was removed yesterday. The patient presented to the [facility] for further evaluation of the same. The patient was evaluated by the ER physician. The patient did not have any elevated white count or any fever. However, she was noticed to have elevated CRP of 156.3 with concern for possible diskitis. The patient was admitted to the hospital. She was started on vancomycin. Infectious Disease was consulted for further recommendation regarding antibiotic therapy. The patient currently with no wound to the back area after removal of that pain device. REVIEW OF SYSTEMS: CONSTITUTIONAL: Positive for weakness but no high-grade fever. Eyes: No complaint. ENT: No complaint. Respiratory: No complaint. Cardiovascular: No complaint. Genitourinary: No complaint. Gastrointestinal: No complaint. Musculoskeletal as per HPI. INTEGUMENTARY: no complaint. Psychological: Pain. NEUROLOGICAL: As per HPI. PAST MEDICAL HISTORY: Significant for diabetes mellitus, hypertension, hyperlipidemia, chronic back pain, varicose veins. PAST SURGICAL HISTORY: Lumbar laminectomy, hysterectomy, cholecystectomy, bladder surgery, total left knee revision, cervical fusion, fusion of L4, L5. SOCIAL HISTORY: Remote history of smoking. No drinking or drug use. FAMILY HISTORY: Mother with history of lung cancer. Father had alcoholism. ALLERGIES: PENICILLIN AND SULFA. MEDICATION: Medications include the patient currently on Valium, Cymbalta, Pepcid, heparin, Toradol, Ativan, morphine sulfate, Narcan, Zofran, Percocet, vancomycin pharmacy to dose. EXAMINATION: Her blood pressure is 135/79 with a pulse of 77, temperature 98.2. Patient is 95% on room air. General description is a middle aged female lying in bed in no distress. No tachypnea or accessory muscle of respiration use. HEENT examination: No pallor or scleral icterus. Oral mucosal membranes moist. Neck trachea central. No thyromegaly. LUNGS: Unlabored breathing. Clear to auscultation anteriorly. No wheeze or crackle. HEART: S1, S2. Regular rate and rhythm. ABDOMEN: Soft, no tenderness. EXTREMITIES: No edema of the feet. Examination of the skin: No rash or mass palpable. Examination of the lumbosacral spine area currently with no swelling or redness. The incision is from previous surgeries, currently healed. She was noted to have slight tenderness on palpation though. NEUROLOGICAL: Patient is awake, alert, oriented x3. Mood and affect normal. LABS: Hemoglobin is 12.8, white count 10.6, BUN of 10, creatinine 0.78. CRP was 156.3. DIAGNOSTIC IMPRESSION AND PLAN: Patient admitted to the hospital with excruciating low back pain and some radiation to the right leg in a patient who does have a history of chronic back pain. Apparently seemed to be getting worse after the patient had pain stimulator placed that had been subsequently discontinued. Currently with no fever or elevated white count, making diskitis to be less likely but not entirely excluded as the CRP is an inflammatory marker and could be from the inflammation associated with the pain stimulator placement and subsequent removal. PLAN: 1. We will obtain lumbosacral spine MRI with contrast to better define her underlying pathology. With suspicion for diskitis the patient will need possible CT-guided aspirate of this area to determine microbiological Augmentin before committing to a fpc antibiotic therapy. 2. Pain management per the admitting team. Thank you for this consultation. MMODL / IJN: [id number] /
[2018-03-10] MEDS ORDERED: DULoxetine HCL 30 MG CAPSULE.DR PO SCH (21:00)
[2018-03-10] MEDS ORDERED: FAMOTIDINE 20 MG TAB PO SCH (21:00)
[2018-03-10] MEDS ORDERED: VANCOMYCIN 1,250 MG in SODIUM CHLORIDE 0.9% 250 ML IVPB SCH (21:00)
== END 2018-03-10 16:15 | disposition home or self-care (01) ==
LOC: EC 05:11 → 3SUR 08:04
PROVIDERS: ADMIT Hospitalist; ATTEND Hospitalist
DX: M54.5 Low back pain (principal); R79.82 Elevated C-reactive protein (CRP); G90.522 Complex regional pain syndrome I of left lower limb; R51 Headache; I10 Essential (primary) hypertension; E78.5 Hyperlipidemia, unspecified; M46.96 Unspecified inflammatory spondylopathy, lumbar region; M51.36 Other intervertebral disc degeneration, lumbar region; M10.9 Gout, unspecified; I83.93 Asymptomatic varicose veins of bilateral lower extremities; D18.09 Hemangioma of other sites; Z76.5 Malingerer [conscious simulation]; E66.9 Obesity, unspecified; Z68.29 Body mass index [BMI] 29.0-29.9, adult; M19.90 Unspecified osteoarthritis, unspecified site; F41.0 Panic disorder [episodic paroxysmal anxiety]; F32.9 Major depressive disorder, single episode, unspecified; F41.9 Anxiety disorder, unspecified; Z90.49 Acquired absence of other specified parts of digestive tract; Z98.1 Arthrodesis status; Z87.891 Personal history of nicotine dependence; Z96.652 Presence of left artificial knee joint; Z88.0 Allergy status to penicillin; Z88.2 Allergy status to sulfonamides; Z88.8 Allergy status to other drugs, medicaments and biological substances; Z79.899 Other long term (current) drug therapy; Z80.1 Family history of malignant neoplasm of trachea, bronchus and lung; Z81.1 Family history of alcohol abuse and dependence
CPT/HCPCS: 96375 ×4; 96374 ×2; 99284 ×2; 96376; 36415; 80053; 85025; 86140; 81001; 87040; 87086; 70450; 72158; G0378; J3370; J2060; J2270 ×2; J2405; J0696; J1885; A9581

== ENCOUNTER → 2018-05-26 | Outpatient (CLI) | payer MEDICARE, BC ==
[2018-05-26 12:06] VITALS: BP 177/79; PULSE 63; RESP 22; TEMP 98.3
--- NOTE | 2018-05-26 15:05 | P.PAINPG ---
Subjective Progress Note Date: 05/26/18 This is a follow-up visit for this 62 years old female with a chronic history of severe low back pain, patient was seen [facility] pain , end of 2017, and we have done diagnostic medial branch block which was negative for any relief, we've done to counteract bursa steroid injection, she had no relief, patient had lumbar laminectomy and fusion surgery done by Dr. Qiu the neurosurgeon and she continued to have severe low back pain, pain is constant and increases with any activity, pain interfering with her quality of life, she tried different Pain medication without any relief, she had fentanyl patch without any benefit she tried morphine, but any benefit, and she is currently on Percocet 10/325 every 6 hours, and she is not getting enough benefit from it, she tried Neurontin and Lyrica without any benefit, she had side effects from it, currently the pain is constant intensity of the pain 8/10 increased to 10 over 10 with any activity, she tried spinal cord stimulator at different pain clinic ( Dr SIMMS pain management ) and she did not have good results, and she was referred to our clinic by Dr. Qiu , for intrathecal pain pump. Objective - Vital Signs Vital signs: Vital Signs Temp 98.3 F 05/26/18 11:58 Pulse 63 05/26/18 11:58 Resp 22 05/26/18 11:58 BP 177/79 05/26/18 11:58 Pulse Ox Intake & Output 05/25/18 05/26/18 05/26/18 18:59 06:59 18:59 Weight 72.121 kg - Constitutional Constitutional Comment(s): Physical Examinations : 1-Constitutiona : Cooperative , not in acute distress . 2-HEENT : nech ; supple , no Lymphadenopathy , normal thyroid size . eyes : no ptosis , no icterus , no photophobia . ENT : normal of hearing , normal oropharynx , no Thrush . 3- Respiratory : Chest clear to auscultations Bilaterally , no wheezing , no Rhonchi . 4- Cardiovascular : regular rate and rhythem , S1 , S2 , no S3 , no S4. 5- Gastrointestinal : abdomen soft no tenderness , bowel sounds , no organomegally . 6- Genitourinary : Defferred . 7- neurologic : Cranial nerve II to XII intact , no focal neurological deffecit . 8-psychatric : alert , oriented X 3 , appropriate affect , intact judgment and insight . 9-Lymphatic : no Lymphadenopathy . 10- musculoskeltal : t . Lumber spine moter stegnth lower extremities ,thigh and legs 4/5 Right side , 4/5 Left side positive lumber facet Loading Test Range of motion of the lumbar spine Flexion 30 degrees, extension 10 degrees strait leg raising test , positive at degree Fabere test positive RT and positive LT . Sever tenderness over the Sacroiliac joint on the R and L sides Assessment and Plan Plan: Assessment and plan= 62 years old female with a chronic history of severe low back pain secondary to postlaminectomy pain syndrome, lumbar spondylosis Patient failed interventional pain management procedures done in the past, had no relief from an interventional pain management. Patient failed spinal cord stimulator trial. Patient tried multiple pain management medications and she had side effects and no relief , patient could be a good candidate for the Intrathecal pain pump, patient alreadydone the psychology evaluation ,we will get a copy of it , urine tox screen ordered today Patient given educational information about the intrathecal pain pump, risk/benefit/alternative, and she wished to proceed Time with Patient: Greater than 30 PQRS Measure Charge Sheet Measure #130: Documentation of Current Meds in Medical Chart: Patient's medications documented in chart Measure #226: Tobacco Use: Screen & Cessation Intervention: Pt not a tobacco user Measure #111: Pneumonia Vaccination: Pneumococcal vaccine NOT administered or previously given Measure #47: Advance Care Plan: Advance care planning discussed & documented, pt chose/unable to give Measure #412: Opioid Treatment Agreement: No documentation of signed opioid treatment agreement Measure #408: Opioid Therapy Follow-up Evaluation: Patient had NO f/u eval minimum every 3 months during opioid therapy Measure #317: Preventitive Care & Scrn High Bld Press & F/U: Pre-hypertensive or hypertensive BP documented, pt will f/u with PCP Measure #128: Body Mass Index (BMI) Screening & Follow-up: BMI documented ABOVE normal parameters - f/u documented Measure #131: Pain Assessment & Follow-up: Pain positive & plan documented, Follow-up scheduled Measure #431: Unhealthy Alcohol Use Preventative Care & Scrn: Patient not identified as an unhealthy alcohol user PQRS Narrative: Smoking Status Former smoker Do You Want the Pneumonia No Vaccine AT THIS TIME? Blood Pressure 177/79 Pain Intensity [Lower Back] 10 Hx Alcohol Use (MH) No Home Medications: Ambulatory Orders DULoxetine HCL [Cymbalta] 30 mg PO HS 10/03/15 oxyCODONE-APAP 10-325MG [Percocet 10-325 mg] 0.5 - 1 tab PO Q6HR PRN 07/28/16 Diazepam [Valium] 2.5 - 5 mg PO TID PRN 09/07/17 Lisinopril [Zestril] 20 mg PO DAILY 05/26/18 hydrOXYzine PAMOATE [Vistaril] 25 mg PO PRN 05/26/18 metFORMIN HCL [Glucophage] 500 mg PO DAILY 05/26/18 Controlled Substance Measures - Controlled Substance Measures Is patient prescribed a controlled substance at discharge?: No When asked, does pt state using other controlled substances?: No If prescribed controlled substance>3 days was MAPS reviewed?: No If Rx opioid, was Start Talking consent form obtained?: No If opioid is for acute pain is fill amount 7 days or less?: No Was information provided regarding opioid addiction?: No
== END | disposition home or self-care (01) ==
LOC: PNWHC3 11:37
PROVIDERS: ATTEND Specialist
DX: G89.29 Other chronic pain (principal); M96.1 Postlaminectomy syndrome, not elsewhere classified; M47.816 Spondylosis without myelopathy or radiculopathy, lumbar region; Z51.81 Encounter for therapeutic drug level monitoring; Z87.891 Personal history of nicotine dependence; Z79.899 Other long term (current) drug therapy; Z79.891 Long term (current) use of opiate analgesic; Z79.84 Long term (current) use of oral hypoglycemic drugs
CPT/HCPCS: 80307; G0482; G0463; 99211

== ENCOUNTER 2018-06-10 06:02 | Day surgery (SDC) | payer MEDICARE, BC ==
[2018-06-08 11:38] VITALS: BMI 29.2
[2018-06-10 06:46] VITALS: TEMP 98.1
[2018-06-10] MEDS ORDERED: LACTATED RINGERS 1,000 ML IV SCH (07:00)
[2018-06-10] MEDS ORDERED: MIDAZOLAM 2 MG/2 ML VIAL ONE (07:02)
[2018-06-10] MEDS ORDERED: LIDOCAINE 1% 20 ML VIAL (10MG/ML) FOR IV START INTRADERMA ONE (07:03)
[2018-06-10] MEDS ORDERED: MIDAZOLAM 2 MG/2 ML VIAL IV ONE (07:05)
[2018-06-10 07:13] LABS: Glucose,Whole Blood 122 mg/dL (75-99)
[2018-06-10] MEDS ORDERED: IV FLUID CONTINUATION 1,000 ML IV ONE (07:37)
--- NOTE | 2018-06-10 07:39 | P.PCN ---
Date of Procedure: 06/10/18 Procedure(s) Performed: Operation= intrathecal pain pump trial ,under fluoroscopy guidance preoperative diagnosis=1- post laminectomy pain syndrome. 2-chronic pain syndrome. Post operative diagnoses= same as preop diagnosis. Anesthesia= IV sedation with Versed 3 mg ( 2 mg in the preop and 1 mg Intra-Op ), and local infiltration with lidocaine 1% 3 mL. Condition= stable. Complications= none. Indication for the procedure= this patient had chronic pain syndrome, she had multiple surgical interventions including lumbar laminectomy and fusion, and she continued to have severe low back pain which is not managed with the current pain medication, patient was a good and did to have intrathecal pain pump placement and she is here today to have intrathecal pain pump trial, risks and benefits of the procedure discussed with the patient, including but not limited to risk of infection post dural puncture headache, not complete pain relief, and agreed with proceeding, Description of the procedure= patient in prone , position, back lumbar area prepped with chlorhexidine x3 times, then the back draped , then L3-4 interlaminar space local infiltration of the skin and subcu tissues with lidocaine 1% 3 mL, ,then 22 -gauge spinal needle, advanced at the L3-4 interlaminar space, under fluoroscopy guidance,there was positive CSF ( Clear ) , was no heme and no paresthesia, then 3 mL of Isovue-200 injected intrathecally to confirm the needle placement, then after that 50 g of fentanyl preservative-free injected intrathecally, then the needle removed, the procedure area cleaned and a Band-Aid applied , then patient taken to recovery room and she will stay there for 4 hours and she will be discharged home ,after discharge criteria met and patient will follow up with the pain clinic in 2-4 weeks
--- NOTE | 2018-06-10 07:47 | FL ---
Fluoroscopy History: pain pump trial pain pump trial. dr escalante. 7 sec fl time. 1 pic scanned
[2018-06-10 07:48] LABS: Glucose,Whole Blood 113 mg/dL (75-99)
[2018-06-10 08:08] VITALS: RESP 18
[2018-06-10] MEDS ORDERED: diphenhydrAMINE 50 MG/ML 1 ML VIAL IVP PRN (08:15)
[2018-06-10 09:55] VITALS: BP 111/68; PULSE 71
== END 2018-06-10 10:53 | disposition home or self-care (01) ==
LOC: ORPAIN 06:02
PROVIDERS: ATTEND Specialist
DX: G89.4 Chronic pain syndrome (principal); M96.1 Postlaminectomy syndrome, not elsewhere classified; Z88.2 Allergy status to sulfonamides; Z88.8 Allergy status to other drugs, medicaments and biological substances
CPT/HCPCS: 62350; J2250; J1200; J3010

== ENCOUNTER → 2018-06-15 | Outpatient (CLI) | payer MEDICARE, BC ==
[2018-06-15 11:42] VITALS: BP 168/90; PULSE 72; RESP 18; TEMP 97.7
--- NOTE | 2018-06-16 07:58 | P.PAINPG ---
Subjective Progress Note Date: 06/15/18 This is a follow-up visit for this 62 years old female with a chronic history of severe low back pain, she had intrathecal pain pump trial done last week and she is here for follow-up visit and discussion about the result of the Trial , patient received intrathecal fentanyl 50 g, and she reported that her pain before the intrathecal fentanyl injection was 10 over 10 dropped to 0-2 , after the injection and the pain relief lasted for a few hours, she is very satisfied with the result of the chart and she will not proceed with the permanent implant of intrathecal pain pump, risks and benefits of intrathecal pump placement discussed with the patient and her including but not limited to risk of infection bleeding ALLERGIC reaction to the medication , and the need for a refill every 2-3 months, and not complete pain relief, and the risk of constipation and side effects of all. Explained to the patient and her and they want to proceed, patient currently on oral opioid Percocet 10/ 325 every 6 hours, and she reported that the current medication is not helping enough and she is not having any quality of life because she is not able to ambulate or do activities of daily livings, she currently getting prescription from different pain clinic and she will switch her care to our pain clinic, Objective - Vital Signs Vital signs: Vital Signs Temp 97.7 F 06/15/18 11:37 Pulse 72 06/15/18 11:37 Resp 18 06/15/18 11:37 BP 168/90 06/15/18 11:37 Pulse Ox Intake & Output 06/15/18 06/16/18 06/16/18 18:59 06:59 18:59 Weight 70.307 kg - Exam Physical Examinations : 1-Constitutiona : Cooperative , not in acute distress . 2-HEENT : nech ; supple , no Lymphadenopathy , normal thyroid size . eyes : no ptosis , no icterus , no photophobia . ENT : normal of hearing , normal oropharynx , no Thrush . 3- Respiratory : Chest clear to auscultations Bilaterally , no wheezing , no Rhonchi . 4- Cardiovascular : regular rate and rhythem , S1 , S2 , no S3 , no S4. 5- Gastrointestinal : abdomen soft no tenderness , bowel sounds , no organomegally . 6- Genitourinary : Defferred . 7- neurologic : Cranial nerve II to XII intact , no focal neurological deffecit . 8-psychatric : alert , oriented X 3 , appropriate affect , intact judgment and insight . 9-Lymphatic : no Lymphadenopathy . 10- musculoskeltal : Lumber spine moter stegnth lower extremities ,thigh and legs 4/5 Right side , 4/5 Left side deep tendon reflexes : normal Knee Jerk , normal ankle Jerk positive lumber facet Loading Test Range of motion of the lumbar spine Flexion 30 degrees, extension 10 degrees strait leg raising test , positive at degree Fabere test positive RT and positive LT . Sever tenderness over the Sacroiliac joint on the R and L sides Assessment and Plan Plan: Assessment and plan= chronic low back pain secondary to lumbar failed back surgery syndrome Patient had excellent pain relief after intrathecal pain pump trial, and she will not proceed with the intrathecal pain pump implant chronic and current use of high-risk medication (opioids) Patient denies any side effects of the current pain medication and the current treatment/medication helping the patient to do activity of daily living , Diagnoses, prognosis, treatment options, including but not limited to physical therapy, medication management, interventional therapies, and surgery, were discussed with the patient All the questions answered The narcotic consent was signed and patient agreed and understood the side effects and complications of opioid treatment. Patient signed the narcotic agreement, and was orally counseled, not to overuse, not to abuse, not to Divert , not tp sell pain medication, and to take it as prescribed only, Patient was counseled not to drive or operate heavy equipment while using narcotic medication, and advised not to use alcohol or any Illicit drugs while using the narcotis, the patient's verbalized understanding that lack of compliance with any of the above instructions, will likely to cause discharge from, the pain service, not to renew his narcotic prescriptions MAPS Reviwed and it was apropriate . Medication managements= patient will be given prescription refills for Percocet 10/325 every 6 hours dispensed 120, patient would be good candidate to have intrathecal pain pump implant Patient signed narcotic agreement, she signed the consent for opioid contract , MAPS reviewed , urine drug screen reviewed , Time with Patient: Less than 30 PQRS Measure Charge Sheet Measure #130: Documentation of Current Meds in Medical Chart: Patient's medications documented in chart Measure #226: Tobacco Use: Screen & Cessation Intervention: Pt not a tobacco user Measure #111: Pneumonia Vaccination: Pneumococcal vaccine NOT administered or previously given Measure #47: Advance Care Plan: Advance care planning discussed & documented, pt chose/unable to give Measure #412: Opioid Treatment Agreement: Documented signed opioid trtmnt agreemnt min once during opioid trtmnt Measure #408: Opioid Therapy Follow-up Evaluation: Patient had f/u eval minimum every 3 months during opioid therapy Measure #317: Preventitive Care & Scrn High Bld Press & F/U: Pre-hypertensive or hypertensive BP documented, pt will f/u with PCP Measure #128: Body Mass Index (BMI) Screening & Follow-up: BMI documented ABOVE normal parameters - f/u documented Measure #131: Pain Assessment & Follow-up: Pain positive & plan documented, Follow-up scheduled Measure #431: Unhealthy Alcohol Use Preventative Care & Scrn: Patient not identified as an unhealthy alcohol user PQRS Narrative: Smoking Status Former smoker Do You Want the Pneumonia No Vaccine AT THIS TIME? Narcotic Agreement Date Signed 06/15/18 Blood Pressure 168/90 Pain Intensity [Lower Back] 10 Hx Alcohol Use (MH) No Home Medications: Ambulatory Orders DULoxetine HCL [Cymbalta] 30 mg PO HS 10/03/15 oxyCODONE-APAP 10-325MG [Percocet 10-325 mg] 0.5 - 1 tab PO Q6HR PRN 07/28/16 Diazepam [Valium] 2.5 - 5 mg PO TID PRN 09/07/17 Lisinopril [Zestril] 20 mg PO DAILY 05/26/18 hydrOXYzine PAMOATE [Vistaril] 25 mg PO Q6H PRN 05/26/18 metFORMIN HCL [Glucophage] 500 mg PO DAILY 05/26/18 Controlled Substance Measures - Controlled Substance Measures Is patient prescribed a controlled substance at discharge?: Yes When asked, does pt state using other controlled substances?: No If prescribed controlled substance>3 days was MAPS reviewed?: Yes If Rx opioid, was Start Talking consent form obtained?: Yes If opioid is for acute pain is fill amount 7 days or less?: No Was information provided regarding opioid addiction?: Yes
== END | disposition home or self-care (01) ==
LOC: PNWHC3 11:29
PROVIDERS: ATTEND Specialist
DX: G89.29 Other chronic pain (principal); M54.5 Low back pain; M96.1 Postlaminectomy syndrome, not elsewhere classified; Z79.891 Long term (current) use of opiate analgesic; Z87.891 Personal history of nicotine dependence; Z79.899 Other long term (current) drug therapy
CPT/HCPCS: 99211

== ENCOUNTER → 2018-07-02 | Day surgery (SDC) | payer MEDICARE, BC ==
[2018-06-29 09:00] VITALS: BMI 29.2
[~2018-07-02] MED LIST: BUPIVACAIN-EPI 0.5%-1:200,000 30 ML VIAL SQ ONE; DEXAMETHASONE SOD PHOSPHATE 10 MG/ML 1 ML VIAL IV ONE; IOPAMIDOL M200 10 ML VIAL MISCELLANE ONE; LACTATED RINGERS 1,000 ML IV ONE; LACTATED RINGERS 1,000 ML IV SCH; LIDOCAINE 1% 20 ML VIAL (10MG/ML) FOR IV START INTRADERMA ONE; LIDOCAINE 1% INJ 10MG/ML (20 ML MDV) ONE; LIDOCAINE 1% INJ 10MG/ML (20 ML MDV) SQ ONE; MIDAZOLAM 2 MG/2 ML VIAL IV PRN; MIDAZOLAM 2 MG/2 ML VIAL ONE; ONDANSETRON 4 MG/2 ML VIAL IVP ONE; PROPOFOL 10 MG/ML 20 ML VIAL IV ONE; SCOPOLAMINE 1.5MG/72HR PATCH TRANSDERM ONE; SUCCINYLCHOLINE CHLORIDE 100 MG/5 ML SYR IV ONE; ceFAZolin 1,000 MG in SODIUM CHLORIDE 0.9% 1,000 ML IRRIGATION ONE; ceFAZolin IN SWFI 2 GM/20 ML SYRINGE IVP ONE; ePHEDrine SULFATE/0.9% NACL/PF 50 MG/5 ML SYRINGE IV ONE; fentaNYL (PF) 50 MCG/ML 2 ML AMP IV PRN; fentaNYL (PF) 50 MCG/ML 2 ML AMP ONE
--- NOTE | 2018-07-02 12:11 | P.GSHP ---
History of Present Illness H&P Date: 07/02/18 This is 62 years old female with a history of chronic severe low back pain diagnosed with failed back surgery syndrome and lumbar area, patient had multiple pain intervention is procedure to control her pain, she had multiple surgical interventions fail to control her low back pain, she had intrathecal pain pump trial which was successful, and she is here today to have intrathecal pain pump implant Past Medical History Past Medical History: Diabetes Mellitus, Hyperlipidemia, Hypertension, Musculoskeletal Disorder, Osteoarthritis (OA) Additional Past Medical History / Comment(s): chronic low back pain, DDD; T3 spinal hemangioma, L shoulder torn rotator cuff, severe bilateral carpal tunnel syndrome, reflex sympathetic dystrophy,torn bicept; varicose veins bilateral legs, incontinence at times. History of Any Multi-Drug Resistant Organisms: None Reported Past Surgical History: Back Surgery, Bladder Surgery, Cholecystectomy, Hysterectomy, Joint Replacement, Orthopedic Surgery Additional Past Surgical History / Comment(s): lumbar laminectomies/ decompression interbody fusion L3-L5, cervical fusion C5-C7, TOTAL LEFT KNEE, LEFT KNEE REVISION , BLADDER SUSPENSION, colonoscopy, florence bunionectomies , bilateral "eye lifts", nerve ablation on sacrum, R elbow cyst drained. Past Anesthesia/Blood Transfusion Reactions: Motion Sickness, Postoperative Nausea & Vomiting (PONV) Additional Past Anesthesia/Blood Transfusion Reaction / Comment(s): Pt is clausterphobic. Smoking Status: Former smoker - Past Family History Mother Family Medical History: Cancer Additional Family Medical History / Comment(s): Mother of lung cancer at age 58 yrs. Father Additional Family Medical History / Comment(s): Father was an alcoholic. Medications and Allergies Home Medications Medication Instructions Recorded Confirmed Type DULoxetine HCL [Cymbalta] 30 mg PO HS 10/03/15 07/02/18 History oxyCODONE-APAP 10-325MG [Percocet 0.5 - 1 tab PO Q6HR PRN 07/28/16 07/02/18 History 10-325 mg] Lisinopril [Zestril] 20 mg PO DAILY 05/26/18 07/02/18 History hydrOXYzine PAMOATE [Vistaril] 25 mg PO Q6H PRN 05/26/18 07/02/18 History metFORMIN HCL [Glucophage] 500 mg PO DAILY 05/26/18 07/02/18 History tiZANidine HCL [Zanaflex] 4 mg PO DAILY PRN 06/29/18 07/02/18 History Allergies Allergy/AdvReac Type Severity Reaction Status Date / Time Penicillins Allergy Rash/Hives Verified 07/02/18 11:46 Sulfa (Sulfonamide Allergy Rash/Hives Verified 07/02/18 11:46 Antibiotics) steroids AdvReac makes Uncoded 07/02/18 11:46 blood sugar very high Surgical - Exam Vital Signs Temp Pulse Resp BP Pulse Ox 97.8 F 62 18 177/76 99 07/02/18 11:59 07/02/18 11:59 07/02/18 11:59 07/02/18 11:59 07/02/18 11:59 Physical Examinations : 1-Constitutiona : Cooperative , not in acute distress . 2-HEENT : nech ; supple , no Lymphadenopathy , normal thyroid size . eyes : no ptosis , no icterus , no photophobia . ENT : normal of hearing , normal oropharynx , no Thrush . 3- Respiratory : Chest clear to auscultations Bilaterally , no wheezing , no Rhonchi . 4- Cardiovascular : regular rate and rhythem , S1 , S2 , no S3 , no S4. 5- Gastrointestinal : abdomen soft no tenderness , bowel sounds , no organomegally . 6- Genitourinary : Defferred . 7- neurologic : Cranial nerve II to XII intact , no focal neurological deffecit . 8-psychatric : alert , oriented X 3 , appropriate affect , intact judgment and insight . 9-Lymphatic : no Lymphadenopathy . 10- musculoskeltal : Lumber spine moter stegnth lower extremities ,thigh and legs 4/5 Right side , 4/5 Left side Assessment and Plan Plan: Assessment and plan= failed back surgery syndrome and lumbar area patient here today for permanent pain pump implant Time with Patient: Less than 30
[2018-07-02 12:28] LABS: Glucose,Whole Blood 130 mg/dL (75-99)
--- NOTE | 2018-07-02 14:03 | FL ---
Fluoroscopy History: PAIN PUMP INSERTION 43 SEC FLUORO, 3 IMAGES SCANNED INTO PACS
[2018-07-02 15:00] VITALS: TEMP 96.8
[2018-07-02 15:28] LABS: Glucose,Whole Blood 152 mg/dL (75-99)
--- NOTE | 2018-07-02 17:24 | P.PCN ---
Date of Procedure: 07/02/18 Procedure(s) Performed: Procedure= 1-placement of permanent intrathecal infusion pump. 2-placement of tunneling intrathecal catheter. Under fluoroscopy guidance 3-electronic analysis of intrathecal pain pump. Preoperative diagnosis=1-postlaminectomy pain syndrome lumbar area. 2-chronic pain syndrome. Postoperative diagnosis= same as preop diagnosis. Conditions= stable. Complications= none. Estimated blood loss= minimal. Anesthesia= general endotracheal intubation. Indication for the procedure= patient with a history of chronic pain and history of postlaminectomy pain syndrome , patient failed conservative treatment , patient failed interventional pain management, patient had good pain control with the intrathecal opioid trial, psychology evaluation , which showed no contraindication to proceed with the implantation of permanent intrathecal pain pump. Description of the procedure= patient was identified in the preop holding area risks and benefits and alternatives of the procedure discussed with the patient and her and they agreed with proceeding, all the questions answered. Patient placed in prone position after induction of anesthesia, by anesthesia department, the patient was given 2 g of prophylactic antibiotics consisting of 10 the back and the left buttock area prepped with the DuraPrep 3, then draped in the standard fashion, then under fluoroscopy guidance local infiltration of the skin and subcu interstitial with the local infiltration with mixture of lidocaine and bupivacaine at L4 5 interlaminar space,, then a 17-gauge Tuohy needle advanced slowly at L4 5 and there was positive on the cerebrospinal fluid , then the entire thecal catheter advanced through the needle up to L1 level,, under live fluoroscopy, then after that the pain in the skin incision around the needle and then dissection to the fascia under the skin, hemostasis obtained using cautery, then first suture placed around the needle , then after that the stylet removed from the catheter, and anchored placed around the catheter, to prevent any movement of the catheter, then another incision made in the left buttock area to create a pocket for the intrathecal pain pump, and an adequate hemostasis obtained, using the cautery, then after that I created, between the catheter , and the left buttock area, using a [employer] tunneling device, then after that the catheter passed from the L4 5 interlaminar space towards the left buttock area, and then after adequate flow of the cerebrospinal fluid coming through the cast and then after that the catheter connected to the pump, then after that the pump pocket closed using 2-0 Vicryl for subcu 3-0 Vicryl and then, the midline incision was closed with 2-0 Vicryl and then samara, all this done after adequate hemostasis was obtained, a she' ll was given priming bolus , and she was given initial bolus of 0.2 mg of Dilaudid and she will receive a daily dose of Dilaudid 0.2 mg per day, patient seen in the recovery room and evaluated and she was in stable condition and for the awake and she was discharged home in stable condition and she will follow up in the pain clinic in a few days. Patient would continue on oral antibiotics with Levaquin 750 mg daily, and she will use of breakthrough pain medication Percocet 5/325 one tablet by mouth every 4 hours
--- NOTE | 2018-07-03 17:34 | P.PN ---
Progress Note - Text Progress Note Date: 07/03/18 This is 62 years old female with a history of failed back surgery syndrome she had intrathecal pain pump implanted yesterday, today she came to the emergency room complaining of severe pain the pain is not manageable with the breakthrough medication, Percocet 5/325, patient reported that her pain level is 10 over 10, the patient to the pain pump analyzed and she'll patient currently on intrathecal Dilaudid concentration 2 mg per mL and patient proceeded that it does of Dilaudid intrathecally 0.2 mg per day, patient was started on a low dose because, the intrathecal pain pump trial was done with the fentanyl and intrathecally but patient had itching from the fentanyl for this reason I have to switch her to a medication, and the patient was started on Dilaudid at the very low does, Today in the emergency room. Patient intrathecal Dilaudid bolus 0.3 mg intrathecally, and I increased the daily dose of intrathecal Dilaudid to 0.3 mg , and patient discharged home and she will follow up in the pain clinic next few days,
[2018-07-04 12:46] VITALS: BP 116/69; PULSE 79; RESP 20
== END ==
LOC: OR 11:11
PROVIDERS: ATTEND Specialist
DX: G89.4 Chronic pain syndrome (principal); M96.1 Postlaminectomy syndrome, not elsewhere classified; E11.9 Type 2 diabetes mellitus without complications; E78.5 Hyperlipidemia, unspecified; I10 Essential (primary) hypertension; M19.90 Unspecified osteoarthritis, unspecified site; G56.03 Carpal tunnel syndrome, bilateral upper limbs; G90.50 Complex regional pain syndrome I, unspecified; I83.93 Asymptomatic varicose veins of bilateral lower extremities; R32 Unspecified urinary incontinence; F40.240 Claustrophobia; Z98.1 Arthrodesis status; Z96.652 Presence of left artificial knee joint; Z90.49 Acquired absence of other specified parts of digestive tract; Z90.710 Acquired absence of both cervix and uterus; Z79.891 Long term (current) use of opiate analgesic; Z79.84 Long term (current) use of oral hypoglycemic drugs; Z79.899 Other long term (current) drug therapy; Z88.0 Allergy status to penicillin; Z88.2 Allergy status to sulfonamides; Z88.8 Allergy status to other drugs, medicaments and biological substances; Z87.891 Personal history of nicotine dependence
CPT/HCPCS: 62362; C1755; C1772; J2250; J2405; J0690 ×2; J2001; J3010; J0330; J2704; Q9966

== ENCOUNTER 2018-07-03 13:04 | Emergency (ER) | payer MEDICARE, BC ==
[2018-07-03 13:10] VITALS: RESP 18
[2018-07-03] MEDS ORDERED: HYDROmorphone 1 MG/ML 1 ML SYRINGE IVP STA (14:09)
--- NOTE | 2018-07-03 14:22 | ED ---
General Adult HPI - General Chief complaint: Back Pain/Injury Stated complaint: Lumbar/Hip Pain Source: patient, family Mode of arrival: wheelchair Limitations: no limitations - History of Present Illness Initial comments: Dictation was produced using [employer] dictation software. please excuse any grammatical, word or spelling errors. Chief Complaint: 62-year-old female with past medical history of chronic pain and laminectomy pain followed by pain special presents with back pain. History of Present Illness: 62yo female presents with back pain. Patient had a intrathecal pump placed by our pain specialist here in yesterday. States that last night she began having severe pain. Denies any constitutional symptoms. Takes Percocet. Chart review shows that patient had pain pump placed by Dr. gonzalez yesterday. Patient came in today because she states the pain is so severe. The ROS documented in this emergency department record has been reviewed and confirmed by me. Those systems with pertinent positive or negative responses have been documented in the HPI. All other systems are other negative and/or noncontributory. - Related Data Home Medications Medication Instructions Recorded Confirmed DULoxetine HCL [Cymbalta] 30 mg PO HS 10/03/15 07/02/18 oxyCODONE-APAP 10-325MG [Percocet 0.5 - 1 tab PO Q6HR PRN 07/28/16 07/02/18 10-325 mg] Lisinopril [Zestril] 20 mg PO DAILY 05/26/18 07/02/18 hydrOXYzine PAMOATE [Vistaril] 25 mg PO Q6H PRN 05/26/18 07/02/18 metFORMIN HCL [Glucophage] 500 mg PO DAILY 05/26/18 07/02/18 tiZANidine HCL [Zanaflex] 4 mg PO DAILY PRN 06/29/18 07/02/18 Allergies Allergy/AdvReac Type Severity Reaction Status Date / Time Penicillins Allergy Rash/Hives Verified 07/03/18 13:14 Sulfa (Sulfonamide Allergy Rash/Hives Verified 07/03/18 13:14 Antibiotics) steroids AdvReac makes Uncoded 07/03/18 13:14 blood sugar very high Review of Systems ROS Statement: Those systems with pertinent positive or pertinent negative responses have been documented in the HPI. ROS Other: All systems not noted in ROS Statement are negative. Past Medical History Past Medical History: Diabetes Mellitus, Hyperlipidemia, Hypertension, Musculoskeletal Disorder, Osteoarthritis (OA) Additional Past Medical History / Comment(s): chronic low back pain, DDD; T3 spinal hemangioma, L shoulder torn rotator cuff, severe bilateral carpal tunnel syndrome, reflex sympathetic dystrophy,torn bicept; varicose veins bilateral legs, incontinence at times. History of Any Multi-Drug Resistant Organisms: None Reported Past Surgical History: Back Surgery, Bladder Surgery, Cholecystectomy, Hysterectomy, Joint Replacement, Orthopedic Surgery Additional Past Surgical History / Comment(s): lumbar laminectomies/ decompression interbody fusion L3-L5, cervical fusion C5-C7, TOTAL LEFT KNEE, LEFT KNEE REVISION , BLADDER SUSPENSION, colonoscopy, florence bunionectomies , bilateral "eye lifts", nerve ablation on sacrum, R elbow cyst drained. Past Anesthesia/Blood Transfusion Reactions: Motion Sickness, Postoperative Nausea & Vomiting (PONV) Additional Past Anesthesia/Blood Transfusion Reaction / Comment(s): Pt is clausterphobic. Past Psychological History: Anxiety, Depression, Panic Disorder Smoking Status: Former smoker Past Alcohol Use History: None Reported Past Drug Use History: None Reported - Past Family History Mother Family Medical History: Cancer Additional Family Medical History / Comment(s): Mother of lung cancer at age 58 yrs. Father Additional Family Medical History / Comment(s): Father was an alcoholic. General Exam - General Exam Comments Initial Comments: PHYSICAL EXAM: General Impression: Alert and oriented x3, acute distress secondary to pain HEENT: Normocephalic atraumatic, extra-ocular movements intact, pupils equal and reactive to light bilaterally, mucous membranes moist. Cardiovascular: Heart regular rate and rhythm, S1&S2 audible, no murmurs, rubs or gallops Chest: Lungs clear to auscultation bilaterally, no rhonchi, no wheeze, no rales Abdomen: Bowel sounds present, abdomen soft, non-tender, non-distended, no organomegaly Musculoskeletal: Pulses present and equal in all extremities, no peripheral edema Motor: Power 5/5 bilaterally, no focal deficits noted Neurological: CN II-XII grossly intact, no focal motor or sensory deficits noted Skin: Palpable hardware in her left gluteal region. There is dressing that is mildly bloody. Psych: Normal affect and mood Limitations: no limitations Course Vital Signs 07/03/18 13:07 Temperature 98 F Pulse Rate 109 H Respiratory 18 Rate Blood Pressure 149/108 O2 Sat by Pulse 97 Oximetry Medical Decision Making - Medical Decision Making ED course: 62-year-old female presents with pain status post intrathecal pump placement yesterday by Dr. Genao vital signs upon arrival shows heart rate of 109. Laboratory evaluation obtained showing no acute processes. Discussed patient case with Dr. escalante who evaluated patient at bedside. He brought in his device to adjust the pain pump. Patient also given Dilaudid push. Patient feeling well. Dr. Medrano cleared patient for discharge. Patient okay with disposition and outpatient follow-up with pain specialist for further care. - Lab Data Result diagrams: 07/03/18 14:19 07/03/18 14:19 Lab Results 07/03/18 07/03/18 07/03/18 Range/Units 14:19 14:19 14:19 WBC 10.3 (3.8-10.6) k/uL RBC 4.72 (3.80-5.40) m/uL Hgb 13.3 (11.4-16.0) gm/dL Hct 42.2 (34.0-46.0) % MCV 89.3 (80.0-100.0) fL MCH 28.2 (25.0-35.0) pg MCHC 31.6 (31.0-37.0) g/dL RDW 13.4 (11.5-15.5) % Plt Count 331 (150-450) k/uL Neutrophils % 55 % Lymphocytes % 33 % Monocytes % 7 % Eosinophils % 2 % Basophils % 1 % Neutrophils # 5.7 (1.3-7.7) k/uL Lymphocytes # 3.4 (1.0-4.8) k/uL Monocytes # 0.8 (0-1.0) k/uL Eosinophils # 0.2 (0-0.7) k/uL Basophils # 0.1 (0-0.2) k/uL PT 11.6 (9.0-12.0) sec INR 1.2 H (<1.2) Sodium 136 L (137-145) mmol/L Potassium 4.9 (3.5-5.1) mmol/L Chloride 99 (98-107) mmol/L Carbon Dioxide 26 (22-30) mmol/L Anion Gap 11 mmol/L BUN 13 (7-17) mg/dL Creatinine 0.91 (0.52-1.04) mg/dL Est GFR (CKD-EPI)AfAm 78 (>60 ml/min/1.73 sqM) Est GFR (CKD-EPI)NonAf 68 (>60 ml/min/1.73 sqM) Glucose 116 H (74-99) mg/dL Calcium 9.1 (8.4-10.2) mg/dL Total Bilirubin 0.5 (0.2-1.3) mg/dL AST 27 (14-36) U/L ALT 27 (9-52) U/L Alkaline Phosphatase 72 (38-126) U/L Total Protein 7.1 (6.3-8.2) g/dL Albumin 4.1 (3.5-5.0) g/dL Disposition Clinical Impression: Post-operative pain Disposition: HOME SELF-CARE Instructions: Acute Low Back Pain (ED) Is patient prescribed a controlled substance at d/c from ED?: No Referrals: Seda Christina III, MD [Primary Care Provider] - 1-2 days Rosi Medrano MD [STAFF PHYSICIAN] - 1-2 days
[2018-07-03 14:35] LABS: Basophils # (A) 0.1 k/uL (0-0.2); Basophils % (A) 1 %; Eosinophils # (A) 0.2 k/uL (0-0.7); Eosinophils % (A) 2 %; HCT 42.2 % (34.0-46.0); HGB 13.3 gm/dL (11.4-16.0); Lymphocytes # (A) 3.4 k/uL (1.0-4.8); Lymphocytes % (A) 33 %; MCH 28.2 pg (25.0-35.0); MCHC 31.6 g/dL (31.0-37.0); MCV 89.3 fL (80.0-100.0); Mean Platelet Volume 6.2; Monocytes # (A) 0.8 k/uL (0-1.0); Monocytes % (A) 7 %; Neutrophils # (A) 5.7 k/uL (1.3-7.7); Neutrophils % (A) 55 %; Platelet Count 331 k/uL (150-450); RBC 4.72 m/uL (3.80-5.40); RDW 13.4 % (11.5-15.5); WBC 10.3 k/uL (3.8-10.6)
[2018-07-03 14:46] LABS: INR 1.2 (<1.2); Prothrombin Time 11.6 sec (9.0-12.0)
[2018-07-03 14:49] LABS: Albumin 4.1 g/dL (3.5-5.0); Calcium 9.1 mg/dL (8.4-10.2); Potassium 4.9 mmol/L (3.5-5.1); Total Bilirubin 0.5 mg/dL (0.2-1.3); Total Protein 7.1 g/dL (6.3-8.2)
[2018-07-03] MEDS ORDERED: diphenhydrAMINE 50 MG/ML 1 ML VIAL IVP STA (14:50)
[2018-07-03 15:44] VITALS: BP 140/63; PULSE 85; TEMP 98
== END 2018-07-03 15:44 | disposition home or self-care (01) ==
LOC: EC 13:04
DX: M54.9 Dorsalgia, unspecified (principal); G89.18 Other acute postprocedural pain; E11.9 Type 2 diabetes mellitus without complications; I10 Essential (primary) hypertension; M19.90 Unspecified osteoarthritis, unspecified site; F41.9 Anxiety disorder, unspecified; F32.9 Major depressive disorder, single episode, unspecified; Z87.891 Personal history of nicotine dependence; Z90.49 Acquired absence of other specified parts of digestive tract; Z90.710 Acquired absence of both cervix and uterus; Z98.1 Arthrodesis status; Z96.652 Presence of left artificial knee joint; Z98.890 Other specified postprocedural states; Z79.899 Other long term (current) drug therapy; Z88.0 Allergy status to penicillin; Z88.2 Allergy status to sulfonamides; Z88.8 Allergy status to other drugs, medicaments and biological substances
CPT/HCPCS: 36415; 80053; 85025; 85610; 99283; 96374; 96375; J1200; J1170

== ENCOUNTER → 2018-07-06 | Outpatient (CLI) | payer MEDICARE, BC ==
[2018-07-06 12:18] VITALS: RESP 16
--- NOTE | 2018-07-06 13:33 | P.PN ---
Progress Note - Text Progress Note Date: 07/06/18 This is 62 years female with a chronic history of severe low back pain diagnosed with failed back surgery syndrome and lumbar area, I had implanted intrathecal pain pump, it was done last week, the patient is seen today to adjust her intrathecal pain pump dose, patient reported that she had been 10 over 10 and she is not able to sleep intensity of the pain 10 over 10, the intrathecal pain pump analyzed strict patient currently on intrathecal Dilaudid concentration 2 mg per mL and patient currently receiving a daily dose of Dilaudid 0.5 mg per day, and patient getting Percocet 5/325 every 4 hours for breakthrough pain, she has no benefit from the medication, patient complaining of some burning sensation radiating from the low back area towards the right lower extremity, and she was complaining of this pain for the last 3-4 weeks ( befor the pump implant ) , I explained to the patient today that the symptoms most likely lumbar radiculopathy secondary to L3 4 disc , she is already has a fusion at the L4 5 level. , And patient had intrathecal pain pump which is not helping enough that this option at this point is to increase the intrathecal dose of Dilaudid 0.7 mg per day , patient given a bolus of intrathecal Dilaudid 0.5 mg over 16 minutes , also patient could benefit from low-dose Lyrica 25 mg twice a day , in the past patient reported that she had side effects from Lyrica but she is not sure about the dose , she is remembered included the Previous dose was 75 mg twice a day , prescription for Lyrica 25 mg twice a day given to the , and patient will be seen in the clinic in 2-3 days
== END | disposition home or self-care (01) ==
LOC: PNWHC3 11:25
PROVIDERS: ATTEND Specialist
DX: G89.29 Other chronic pain (principal); M96.1 Postlaminectomy syndrome, not elsewhere classified; Z79.891 Long term (current) use of opiate analgesic
CPT/HCPCS: 99211

== ENCOUNTER → 2018-07-08 | Outpatient (CLI) | payer MEDICARE, BC ==
[2018-07-08 12:18] VITALS: BP 136/77; PULSE 77; RESP 18
--- NOTE | 2018-07-08 19:17 | P.PN ---
Subjective Progress Note Date: 07/08/18 This is 62 years old female with a chronic history of severe low back pain, she is diagnosed with postlaminectomy pain syndrome, patient had intrathecal pain pump implanted last week, she continued to have severe low back pain, with radiation to the right lower extremity, the intensity of the pain is 10 over 10 , and patient, had zero benefit since we implanted the pain pump, I increased the intrathecal Dilaudid several times over the last week, intrathecal Dilaudid dose increased from 0.2 mg per day and she is currently on 0.7 mg per day, and she continued to have severe low back pain with radiation to the right lower extremity, patient reported that this increased pain started several weeks ago, after she fell at home, and currently the pain, is constant and increased with any activity patient not able to ambulate because of the pain, patient had a previous MRI of the lumbar spine done in February 2018 which showed fusion and degeneration in the lumbar spine and also lumbar facet arthropathy, Objective - Vital Signs Vital signs: Vital Signs Temp Pulse 77 07/08/18 12:02 Resp 18 07/08/18 12:02 BP 136/77 07/08/18 12:02 Pulse Ox 96 07/08/18 12:02 Intake & Output 07/07/18 07/08/18 07/08/18 18:59 06:59 18:59 Weight 68.946 kg - Exam Physical Examinations : 1-Constitutiona : Cooperative , not in acute distress . 2-HEENT : nech ; supple , no Lymphadenopathy , normal thyroid size . eyes : no ptosis , no icterus , no photophobia . ENT : normal of hearing , normal oropharynx , no Thrush . 3- Respiratory : Chest clear to auscultations Bilaterally , no wheezing , no Rhonchi . 4- Cardiovascular : regular rate and rhythem , S1 , S2 , no S3 , no S4. 5- Gastrointestinal : abdomen soft no tenderness , bowel sounds , no organomegally . 6- Genitourinary : Defferred . 7- neurologic : Cranial nerve II to XII intact , no focal neurological deffecit . 8-psychatric : alert , oriented X 3 , appropriate affect , intact judgment and insight . 9-Lymphatic : no Lymphadenopathy . 10- musculoskeltal : . Lumber spine moter stegnth lower extremities ,thigh and legs 3/5 Right side , 5/5 Left side deep tendon reflexes : normal Knee Jerk , normal ankle Jerk positive lumber facet Loading Test Range of motion of the lumbar spine Flexion 30 degrees, extension 10 degrees strait leg raising test , positive at 30 degree Fabere test positive RT and positive LT . Sever tenderness over the Sacroiliac joint on the R and L sides Assessment and Plan Plan: Assessment and plan= 1-postlaminectomy pain syndrome 2-chronic pain syndrome. Status post implantation of the intrathecal pain pump, I checked the dressing and also remove the samara from the intrathecal Pump incision, and also we interrogated the intrathecal pain pump assure patient currently on dose of 0.7 mg per day, and I increased the dose to 0.85 mg per day , and because patient , and to need to have severe pain, even though we escalated the dose significantly over the last few days , and patient continued to have severe pain, symptoms cannot be explained with the current finding, I cannot explain the reason why patient having this much pain, this could be secondary to lateral position of the hardware, versus a new disc herniation above the fusion level , I will order MRI of the lumbar spine to identify if there is any new etiology causing the pain Time with Patient: Less than 30
== END | disposition home or self-care (01) ==
LOC: PNWHC3 11:26
PROVIDERS: ATTEND Specialist
DX: G89.4 Chronic pain syndrome (principal); M54.5 Low back pain; M96.1 Postlaminectomy syndrome, not elsewhere classified; M47.816 Spondylosis without myelopathy or radiculopathy, lumbar region; M46.86 Other specified inflammatory spondylopathies, lumbar region; Z98.1 Arthrodesis status; Z79.891 Long term (current) use of opiate analgesic; Z96.89 Presence of other specified functional implants
CPT/HCPCS: 99211

== ENCOUNTER → 2018-07-09 | Outpatient (CLI) | payer MEDICARE, BC ==
--- NOTE | 2018-07-11 12:52 | MR ---
EXAMINATION TYPE: MR lumbar spine wo/w con DATE OF EXAM: 07/09/2018 COMPARISON: 03/10/2018 HISTORY: Back pain, prior surgery, Gadavist 7.5 CONTRAST: 7.5 mL intravenous Gadavist. TECHNIQUE: Multiplanar, multisequence images of the lumbar spine were acquired. FINDINGS: L5-S1: No significant disc bulge or disc herniation. No spinal canal stenosis. No foraminal stenosi s. Pedicle screws are present within the L5. L4-L5: No significant disc bulge or disc herniation. No spinal canal stenosis. No foraminal stenosi s. Susceptibility artifact from L4 pedicle screws cause is mild limitation. L3-L4: No significant disc bulge or disc herniation. No spinal canal stenosis. No foraminal stenosi s. Susceptibility artifact from L3 pedicle screws are present causing mild limitation. L2-L3: Large broad-based disc bulge has moderate anterior thecal sac compression. Facet hypertrophy w ith ligamentum flavum laxity is contributing to severe spinal canal stenosis through this level. AP d imension is 0.7 cm. Severe right and moderate left foraminal stenosis is present. These findings are significant changes from the comparison. L1-L2: No significant disc bulge or disc herniation. No spinal canal stenosis. No foraminal stenosi s. Subtle Schmorl's node formation at superior endplate of L2 may be present. T12-L1: No significant disc bulge or disc herniation. No spinal canal stenosis. No foraminal stenos is. No abnormal enhancement. IMPRESSION: 1. Interval development of severe stenosis at the L2-3 level secondary to disc bulging and facet hype rtrophy and ligamentum flavum laxity. Severe right and moderate left foraminal stenosis is also prese nt at this level. This is an interval change from February 2018. 2. Some limitation due to pedicle screws at additional lower lumbar levels.
== END | disposition home or self-care (01) ==
LOC: RADMRIMAIN 17:39
PROVIDERS: ATTEND Specialist
DX: M48.061 Spinal stenosis, lumbar region without neurogenic claudication (principal); M99.73 Connective tissue and disc stenosis of intervertebral foramina of lumbar region; M51.26 Other intervertebral disc displacement, lumbar region; Z98.890 Other specified postprocedural states
CPT/HCPCS: 72158; A9581

== ENCOUNTER → 2018-07-13 | Outpatient (CLI) | payer MEDICARE, BC ==
[2018-07-13 13:04] VITALS: BP 129/80; PULSE 63; RESP 16
--- NOTE | 2018-07-13 15:47 | P.PAINPG ---
Subjective Progress Note Date: 07/13/18 This is follow-up visit for this 62 years MALE with a chronic history of severe low back pain, and she had multiple surgical interventions on her back , and she had fusion surgery, recently patient had an intrathecal pain pump implanted and she is currently on intrathecal Dilaudid 0.85 mg per day, patient continued to have severe low back pain with radiation to the right lower extremity , and this pain is relatively new to her started a few weeks ago, and patient had a new MRI of the lumbar spine. Show the patient has severe lumbar stenosis above the fusion area, patient currently having severe intractable pain with radiation to the right lower extremity and she feels some weakness in her right lower extremity. Objective - Vital Signs Vital signs: Vital Signs Temp Pulse 63 07/13/18 12:59 Resp 16 07/13/18 12:59 BP 129/80 07/13/18 12:59 Pulse Ox 99 07/13/18 12:59 Intake & Output 07/12/18 07/13/18 07/13/18 18:59 06:59 18:59 Weight 68.946 kg - Exam Physical Examinations : 1-Constitutiona : Cooperative , not in acute distress 2- neurologic : Cranial nerve II to XII intact , no focal neurological deffecit . 3-psychatric : alert , oriented X 3 , anxious, , intact judgment and insight . . 4- musculoskeltal : Lumber spine moter stegnth lower extremities , thigh and legs 3-4/5 Right side , 5/5 Left side deep tendon reflexes : normal Knee Jerk , normal ankle Jerk positive lumber facet Loading Test Range of motion of the lumbar spine Flexion 30 degrees, extension 10 degrees Fabere test positive RT and positive LT . Assessment and Plan Plan: Assessment and plan= chronic pain syndrome , post laminectomy pain syndrome, Severe foraminal stenosis at L3 4 level ( new ) Patient continued to have severe pain, after implantation of intrathecal pain pump, I will increase the intrathecal pain medication to Dilaudid 1 mg per day , ( 18 % increase ) and patient could benefit from increased breakthrough medication, prescription for Percocet 10/325 every 6 hours when necessary for pain, patient will be referred to see Dr. Qiu for evaluation regarding the new finding on her MRI , and patient will follow up with the pain clinic after she sees the doctor Qiu Time with Patient: Less than 30 PQRS Measure Charge Sheet Measure #130: Documentation of Current Meds in Medical Chart: Patient's medications documented in chart Measure #226: Tobacco Use: Screen & Cessation Intervention: Pt not a tobacco user Measure #111: Pneumonia Vaccination: Pneumococcal vaccine NOT administered or previously given Measure #47: Advance Care Plan: Advance care planning discussed & documented, pt chose/unable to give Measure #412: Opioid Treatment Agreement: Documented signed opioid trtmnt agreemnt min once during opioid trtmnt Measure #408: Opioid Therapy Follow-up Evaluation: Patient had f/u eval minimum every 3 months during opioid therapy Measure #317: Preventitive Care & Scrn High Bld Press & F/U: Normal blood pressure, f/u not required Measure #128: Body Mass Index (BMI) Screening & Follow-up: BMI documented ABOVE normal parameters - f/u documented Measure #131: Pain Assessment & Follow-up: Pain positive & plan documented, Follow-up scheduled Measure #431: Unhealthy Alcohol Use Preventative Care & Scrn: Patient not identified as an unhealthy alcohol user PQRS Narrative: Smoking Status Former smoker Do You Want the Pneumonia No Vaccine AT THIS TIME? Narcotic Agreement Date Signed 06/15/18 Blood Pressure 129/80 Pain Intensity [Bilateral 9 Lower Back] Scale Used Numeric (1 - 10) Hx Alcohol Use (MH) No Home Medications: Ambulatory Orders DULoxetine HCL [Cymbalta] 30 mg PO HS 10/03/15 Lisinopril [Zestril] 20 mg PO DAILY 05/26/18 hydrOXYzine PAMOATE [Vistaril] 25 mg PO Q6H PRN 05/26/18 metFORMIN HCL [Glucophage] 500 mg PO DAILY 05/26/18 tiZANidine HCL [Zanaflex] 4 mg PO DAILY PRN 06/29/18 oxyCODONE-APAP 5-325MG [Percocet 5-325 mg] 1 tab PO QID 07/06/18 Controlled Substance Measures - Controlled Substance Measures Is patient prescribed a controlled substance at discharge?: Yes When asked, does pt state using other controlled substances?: No If prescribed controlled substance>3 days was MAPS reviewed?: Yes If Rx opioid, was Start Talking consent form obtained?: Yes If opioid is for acute pain is fill amount 7 days or less?: No Was information provided regarding opioid addiction?: Yes
== END | disposition home or self-care (01) ==
LOC: PNWHC3 12:28
PROVIDERS: ATTEND Specialist
DX: G89.4 Chronic pain syndrome (principal); M54.5 Low back pain; M96.1 Postlaminectomy syndrome, not elsewhere classified; M48.061 Spinal stenosis, lumbar region without neurogenic claudication; Z98.1 Arthrodesis status; Z98.890 Other specified postprocedural states; Z96.9 Presence of functional implant, unspecified; Z79.891 Long term (current) use of opiate analgesic; Z87.891 Personal history of nicotine dependence
CPT/HCPCS: 62368

== ENCOUNTER → 2018-08-05 | Outpatient (CLI) | payer MEDICARE, BC ==
[2018-08-05 11:52] VITALS: BP 118/79; PULSE 59; RESP 20
--- NOTE | 2018-08-05 13:03 | P.PN ---
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 This is a 62-year-old female who is here today for severe lower back pain exacerbation. The patient had intrathecal Dilaudid pump placed about 2 months ago. She had multiple back surgeries. She is scheduled to have another back surgery next week. She states that she had difficulty urinating but denies any sphincter loss of control. When I saw today she was crying because of her pain. Because of this. The patient is using more of her breakthrough medication which is oral Percocet. By physical exam there is tenderness and erythema around the incision of the intrathecal pump in the left buttock. Incision is well-healed though with no pus coming out. Neuro exam of the lower extremities showed decreased but symmetrical muscle strength to 4 out of 5 bilaterally and absent deep tendon reflexes bilaterally and symmetrically. Plan: I will send the patient to have blood tests to rule out an infection in the intrathecal pump site including CBC, ESR, and CRP. I will increase the rate of Dilaudid infused intrathecally to 1.2 mg per day and I'll give her a bolus of 0.05 mg now over 30 minutes. Due to her exacerbation of pain I will give her 25 pills of Percocet 10 mg with no refills. If the blood work shows any possible infection her back surgeon may need to be rescheduled. Objective - Vital Signs Vital signs: Vital Signs Temp Pulse 59 L 08/05/18 11:47 Resp 20 08/05/18 11:47 BP 118/79 08/05/18 11:47 Pulse Ox 97 08/05/18 11:47 Intake & Output 08/04/18 08/05/18 08/05/18 18:59 06:59 18:59 Weight 70.307 kg
[2018-08-05 13:36] LABS: Basophils # (A) 0.1 k/uL (0-0.2); Basophils % (A) 1 %; Eosinophils # (A) 0.1 k/uL (0-0.7); Eosinophils % (A) 2 %; HCT 39.5 % (34.0-46.0); HGB 12.9 gm/dL (11.4-16.0); Lymphocytes # (A) 2.5 k/uL (1.0-4.8); Lymphocytes % (A) 48 %; MCH 29.2 pg (25.0-35.0); MCHC 32.7 g/dL (31.0-37.0); MCV 89.2 fL (80.0-100.0); Mean Platelet Volume 6.4; Monocytes # (A) 0.4 k/uL (0-1.0); Monocytes % (A) 8 %; Neutrophils % (A) 38 %; Platelet Count 304 k/uL (150-450); RBC 4.43 m/uL (3.80-5.40); RDW 13.2 % (11.5-15.5); WBC 5.2 k/uL (3.8-10.6)
[2018-08-05 15:49] LABS: Erythrocyte Sedimentation Rate 16 mm/hr (0-20)
== END | disposition home or self-care (01) ==
LOC: PNWHC3 11:36
PROVIDERS: ATTEND Anesthesiology
DX: M96.1 Postlaminectomy syndrome, not elsewhere classified (principal); Z96.89 Presence of other specified functional implants; Z79.891 Long term (current) use of opiate analgesic
CPT/HCPCS: 85652; 85025; 86140; G0463; 99211

== ENCOUNTER → 2018-09-01 | Outpatient (CLI) | payer MEDICARE, BC ==
--- NOTE | 2018-09-01 16:31 | XR ---
Lumbar spine HISTORY: L2-3 fusion 3 views of the lumbar spine correlated to prior exam 11/12/2017 Interval posterior fusion at L2-3 with intervertebral spacing block. Previous fusion changes are agai n noted and stable. Alignment is near-anatomic. There is multilevel spondylosis. Loss of disc height L5-S1, L1-2 with associated spondylosis. Sclerosis in the posterior elements is compatible with facet arthropathy. Bone mineralization is reduced. Vertebral body height is maintained. There are calcific ations in the aortoiliac distribution. Surgical clips in the right upper quadrant. Metallic device no aniket over the gluteal region may be a pain pump. Question laminectomies at L2. Paraspinal graft materi al has been placed in the interval along the lumbar spine from L2 through L4. IMPRESSION: Neurosurgical follow-up.
== END | disposition home or self-care (01) ==
LOC: RADXRMAIN 12:19
DX: M43.26 Fusion of spine, lumbar region (principal)
CPT/HCPCS: 72100

== ENCOUNTER → 2018-09-01 | Day surgery (SDC) | payer MEDICARE, BC ==
[2018-09-01 13:19] VITALS: BP 119/82; PULSE 61; RESP 16
--- NOTE | 2018-09-01 14:12 | P.PN ---
Subjective Progress Note Date: 09/01/18 This is a 60-year-old female with history of failed back surgery syndrome with another lumbar fusion about 2 weeks ago. She does have intrathecal Dilaudid pump and the left buttock area. Her right hip pain improved after her back surgery she does have incisional pain at this point. She is here for a refill on her intrathecal opioid pump. She denies any bowel or bladder dysfunction or any weakness in the lower extremities. By physical exam she is alert oriented 3 no apparent distress. Her pain gets worse with movement and she had difficulty time getting up on the examination table. Neuro exam of the lower extremities showed normal and symmetrical muscle strength and normal and symmetrical deep tendon reflexes. She has well-healing scar from her last back surgery. The patient that used to be around her pump incision has improved significantly. Her CBC and C-reactive protein were within normal limits Plan We will do a pump refill today and we will follow up with her in 3 months. Objective - Vital Signs Vital signs: Vital Signs Temp Pulse 61 09/01/18 13:14 Resp 16 09/01/18 13:14 BP 119/82 09/01/18 13:14 Pulse Ox 97 09/01/18 13:14 Intake & Output 08/31/18 09/01/18 09/01/18 18:59 06:59 18:59 Weight 68.039 kg
--- NOTE | 2018-09-01 14:15 | P.PCN ---
Date of Procedure: 09/01/18 Preoperative Diagnosis: Failed back surgery syndrome Near empty intrathecal Dilaudid pump Postoperative Diagnosis: Failed back surgery syndrome Procedure(s) Performed: Pump refill and reprogramming Anesthesia: none Surgeon: Hayder Reyez Pathology: none sent Condition: stable Disposition: no change Description of Procedure: The patient assumed the right lateral decubitus position. Skin was prepped with ChloraPrep around the pump in the left buttock area. I used 22-gauge [employer] needle to get into the pump reservoir after 2 attempts. I aspirated about 7.2 MLS of residual fluid and injected 40 MLS of the new solution with 20 mg per mL of Dilaudid through a filter. Frequent intermittent aspirations were done to assure placement of the new solution and the pump reservoir. The daily dose of 4 the patient Dilaudid is 1.2 mg. The pump was updated for the new solution volume and the same dose of Dilaudid was resumed. Patient tolerated procedure well.
== END | disposition home or self-care (01) ==
LOC: PNWHC3 12:46
PROVIDERS: ATTEND Anesthesiology
DX: Z45.1 Encounter for adjustment and management of infusion pump (principal); M96.1 Postlaminectomy syndrome, not elsewhere classified; Z98.1 Arthrodesis status
CPT/HCPCS: 62370; 72100

== ENCOUNTER → 2018-10-28 | Day surgery (SDC) | payer MEDICARE, BC ==
[2018-10-26 09:11] VITALS: BMI 28.3
[2018-10-28 12:11] VITALS: BP 131/83; PULSE 59; RESP 16
--- NOTE | 2018-10-28 12:50 | P.PCN ---
Date of Procedure: 10/28/18 Procedure(s) Performed: OPERATION: Intrathecal pain pump analysis, programming and reprogramming, and intrathecal pain pump refill. PREOPERATIVE DIAGNOSES: 1. near empty intrathecal pain pump time for refill. 2. 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 ANESTHESIA: None. CONDITION: Stable. Description of the procedure; Intrathecal pain pump analysed ,it showed patient currently had reservoir volume 5.9 mL. The patient is receiving medication Dilaudid 2 mg/ ml, Patient receiving daily dose of Dilaudid 1.2 mg/day . Pain is not well controlled , patient using medication for breakthrough pain Percocet 10/325 every 6 hours orally . She continued to have severe low back pain with radiation to the lower extremity and also she is complaining of severe left buttock pain at the location of the pain pump The location of the pump ( Left Buttuck ) Prepped with chlorhexidine x3 , then using 22-gauge needle [employer] kit advanced through the pump port, Total of ml removed from the pump, expected volume 5.5 ml , the pump refilled with the new medication total volume 40 ml . The concentration [ 2 ] mg /ml , I increased the daily dose of Dilaudid to 1.45 mg per day which is equal to 21 % increase in the daily dose of intrathecal medication Patient given prescription for Percocet 10/325 every 6 hours, and patient will follow up with the pain clinic in 2 months for pump refill next visit we will change the intrathecal pain medication to Dilaudid 3 mg per mL and bupivacaine concentration 1 mg per mL.
== END ==
LOC: PNWHC3 11:55
PROVIDERS: ATTEND Specialist
DX: Z45.49 Encounter for adjustment and management of other implanted nervous system device (principal); Z79.891 Long term (current) use of opiate analgesic; M96.1 Postlaminectomy syndrome, not elsewhere classified
CPT/HCPCS: 62370

== ENCOUNTER → 2018-12-16 | Day surgery (SDC) | payer MEDICARE, BC ==
[2018-12-16 13:33] VITALS: RESP 16
[2018-12-16 13:37] VITALS: BP 126/74; PULSE 57; TEMP 98.3
--- NOTE | 2018-12-16 15:35 | P.PCN ---
Date of Procedure: 12/16/18 Surgeon: Mikal Rowe Description of Procedure: Procedure: Intrathecal pump refill with analysis and reprogramming Preoperative diagnosis: Post laminectomy syndrome Postoperative diagnosis: Same Surgeon: Mikal Rowe M.D. Anesthesia: Skin local Indication for procedure: This a very pleasant 63-year-old woman with a history of post laminotomy syndrome who presents today for intrathecal pump refill. She reports a recent she's had intractable pain in her right hip area. She is scheduled to see her neurosurgeon in one week. She is also scheduled to have x- rays taken of her low back. She reports that this intractable hip pain began after an episode in which she had to carry her dog up a hill. It sounds like it was quite a straining episode for her. Procedure in detail: After potential risks and benefits reviewed the patient, the patient signed informed consent. The area over the intrathecal pump was then prepped and draped in the usual sterile fashion. The pump was accessed using the [employer] refill kit. Their refill protocol was followed. Contents of the pump were aspirated. The new solution was then verified in then injected through a bacteriostatic filter into the pump with aspiration occurring every 3- 5 mL to confirm intrathecal placement. The needle was then withdrawn once the entire volume was injected and a Band-Aid was applied. Amount of fluid removed: 5 mL Current medications solution: Dilaudid 2 mg per mL Current medication dosage: Dilaudid 1.45 mg per day Refill solution injected: 40 mL of Dilaudid 2.0 mg per mL Elective replacement interval: 75 months Low reservoir refill date: 51 days Given the patient's significant tenderness to palpation on physical examination of her trochanteric bursa and leg, I am going to order x-rays as well as an MRI of her hip to determine if she has a torn labrum or a stress fracture in her leg. Her youth specialist will evaluate the fusion next week at her follow-up appointment.
== END | disposition home or self-care (01) ==
LOC: PNWHC3 13:02
PROVIDERS: ATTEND Pain Medicine Pain Medicine
DX: Z45.1 Encounter for adjustment and management of infusion pump (principal); M96.1 Postlaminectomy syndrome, not elsewhere classified
CPT/HCPCS: 62370; G0463; 99211

== ENCOUNTER → 2018-12-18 | Outpatient (CLI) | payer MEDICARE, BC ==
--- NOTE | 2018-12-18 12:16 | XR ---
EXAMINATION TYPE: XR Hip Complete RT DATE OF EXAM: 12/18/2018 CLINICAL HISTORY: Right hip pain TECHNIQUE: AP and frogleg views of the right hip are obtained. COMPARISON: None. FINDINGS: There is no acute fracture/dislocation evident in the right hip. The joint space in the r ight hip appears narrowed with acetabular roof sclerosis and small subchondral cysts. The overlying soft tissue appears unremarkable. IMPRESSION: There is no acute fracture or dislocation in the right hip. Moderate right femoral aceta bular arthropathy.
--- NOTE | 2018-12-18 12:18 | XR ---
EXAMINATION TYPE: XR lumbar spine 2 or 3V DATE OF EXAM: 12/18/2018 CLINICAL HISTORY: Low back pain with multiple spinal surgeries TECHNIQUE: Frontal and lateral views of the lumbar spine were obtained COMPARISON: 09/01/2018 FINDINGS: Surgical fusion is seen from the L2 through the L5 vertebral bodies. Intervertebral disc ca ges are seen at these levels. Heterotopic ossification surrounds the facets. Mild retrolisthesis is p resent at L1 on L2 and L3 on L4. Small anterior osteophytes are seen of the thoracolumbar junction. N o hardware fracture. Mild atherosclerosis of the aorta. IMPRESSION: 1. Postsurgical change from L2 through L5 with minimal retrolisthesis of L1 on L2 and L3 on L4 and de generative disc disease of the visualized thoracolumbar junction. No hardware fracture. No compressio n deformity.
== END | disposition home or self-care (01) ==
LOC: RADXRMAIN 10:41
PROVIDERS: ATTEND Physician Assistant Surgical
DX: M43.16 Spondylolisthesis, lumbar region (principal); M51.35 Other intervertebral disc degeneration, thoracolumbar region; M16.11 Unilateral primary osteoarthritis, right hip
CPT/HCPCS: 72100; 73502

== ENCOUNTER → 2018-12-25 | Outpatient (CLI) | payer MEDICARE, BC ==
--- NOTE | 2018-12-25 08:19 | MR ---
EXAMINATION TYPE: MR hip RT wo con DATE OF EXAM: 12/25/2018 8:09 AM COMPARISON: NONE HISTORY: right hip pain, labral tear TECHNIQUE: Multiplanar, multiecho imaging of the knee is performed without IV contrast. FINDINGS: There is geometric distortion overlying the left buttock. This is likely due to a pain stim ulator. There is mild superior joint space loss in both hips, slightly greater on the left than the right. Th ere is a small amount of joint fluid present bilaterally, slightly greater on the right than the left . There is a minimal amount of increased signal within the superior cartilaginous glenoid labrum on t he right. An undisplaced tear be difficult to exclude. This is most clearly seen in the sagittal proj ection. There is no evidence of avascular necrosis. The uterus and ovaries are not visualized. IMPRESSION: I SUSPECT A SMALL SUPERIOR LABRAL TEAR ON THE RIGHT. THERE IS SUPERIMPOSED OSTEOARTHRITIS.
== END ==
LOC: RADMRIMAIN 07:07
PROVIDERS: ATTEND Pain Medicine Pain Medicine
DX: M16.11 Unilateral primary osteoarthritis, right hip (principal)

== ENCOUNTER → 2019-02-01 | Day surgery (SDC) | payer MEDICARE, BC ==
[2019-02-01 13:10] VITALS: BP 148/91; PULSE 61; RESP 18
--- NOTE | 2019-02-01 19:31 | P.PCN ---
Date of Procedure: 02/01/19 Procedure(s) Performed: OPERATION: Intrathecal pain pump analysis, programming and reprogramming, and intrathecal pain pump refill. PREOPERATIVE DIAGNOSES: 1. near empty intrathecal pain pump time for refill. 2. 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 ANESTHESIA: None. CONDITION: Stable. Description of the procedure; Intrathecal pain pump analysed ,it showed patient currently had reservoir volume 6 mL. The patient is receiving medication Dilaudid 2 mg/ ml, Patient receiving daily dose of Dilaudid 1.44 mg/day . Pain is not well controlled , patient using medication for breakthrough pain Percocet 10/325 every 6 hours orally . She continued to have severe low back pain with radiation to the lower extremity and also she is complaining of severe right hip pain and she had a new MRI of the right hip, and it showed minor labral tear, and osteoarthritis of the right hip The location of the pump ( Left Buttuck ) Prepped with chlorhexidine x3 , then using 22-gauge needle [employer] kit advanced through the pump port, Total of 6 ml removed from the pump, expected volume 6 ml , the pump refilled with the new medication total volume 40 ml . The new medication has Dilaudid preservative-free concentration is 3 mg per mL, and bupivacaine concentration 1 mg per mL ( new medication ) I increased the daily dose of Dilaudid to 1, 69 mg per day, and patient will receive a daily dose of bupivacaine 0.56 mg per day Patient will follow up with the pain clinic in 8 weeks Patient given prescription for Percocet 10/325 every 6 hours, and patient will follow up with the pain clinic in 2 months for pump refill next visit we will change the intrathecal pain medication
== END ==
LOC: PNWHC3 12:20
PROVIDERS: ATTEND Specialist
DX: Z45.1 Encounter for adjustment and management of infusion pump (principal); M96.1 Postlaminectomy syndrome, not elsewhere classified; F11.20 Opioid dependence, uncomplicated; M16.11 Unilateral primary osteoarthritis, right hip; S73.191A Other sprain of right hip, initial encounter
CPT/HCPCS: 62370

== ENCOUNTER → 2019-03-01 | Outpatient (CLI) | payer MEDICARE, BC ==
[2019-03-01 12:46] VITALS: BP 137/80; PULSE 68; RESP 18
--- NOTE | 2019-03-01 13:16 | P.PN ---
Subjective Progress Note Date: 03/01/19 [place] a 63-year-old female who presents today for follow-up. She is a chronic pain patient has an intrathecal pump. She is here today because of her right hip pain. I last visit she was sent to see Dr. Saldaña secondary to hip pain. Ultimately believe that her pain is likely coming from her back and possibly from her hip. He recommended doing a diagnostic hip injection to see if that's what is causing her pain. She continues to have the same pain across the hip worse with moving the hip. She denies any new symptoms. Objective - Vital Signs Vital signs: Vital Signs Temp Pulse 68 03/01/19 12:41 Resp 18 03/01/19 12:41 BP 137/80 03/01/19 12:41 Pulse Ox 99 03/01/19 12:41 Intake & Output 02/28/19 03/01/19 03/01/19 18:59 06:59 18:59 Weight 70.307 kg - Exam General: Awake and alert oriented 3 no distress Respiratory exam: No audible wheezing no accessory muscle usage Cardiovascular exam: regular rate, palpable bilateral pulses, no lower extremity edema Abdominal exam: No distention nontender to palpation Cervical spine: Normal alignment, normal range of motion Lumbar spine: Loss of lumbar lordosis, surgical scars are well-healed . Pain with moving of the hip on the right side. Pain with abduction and abduction as well as extension and flexion of the hip. Sacroiliac joints: Nontender to palpation, JIE is negative, [place] negative Neuro exam: Normal sensation in bilateral upper extremities, deep tendon reflexes are 2+ bilateral upper extremities. Psych exam: Cooperative, appropriate mood Assessment and Plan Assessment: Chronic pain syndrome Right hip pain secondary to osteoarthritis and labral tear Plan: After examination the patient, review of medical records, and discussion with the patient has been. It like to move forward with a diagnostic right hip injection. Patient is worried about getting steroid injection secondary to her diabetes. I discussed with her dietary effects how to mitigate the elevation of blood sugar. Patient is still very worried about elevated blood sugar. At this point he like to do a diagnostic only. If they decide to change her mind that time would injection we'll add steroid at that time.
== END ==
LOC: PNWHC3 12:37
PROVIDERS: ATTEND Hospitalist
DX: G89.4 Chronic pain syndrome (principal); M16.11 Unilateral primary osteoarthritis, right hip; S73.101A Unspecified sprain of right hip, initial encounter
CPT/HCPCS: 99211

== ENCOUNTER 2019-03-10 08:53 | Day surgery (SDC) | payer MEDICARE, BC ==
[2019-03-10] MEDS ORDERED: fentaNYL (PF) 50 MCG/ML 2 ML AMP IV ONE ×2 (09:56→10:06)
[2019-03-10] MEDS ORDERED: LACTATED RINGERS 1,000 ML IV ONE (09:56)
[2019-03-10 10:00] VITALS: TEMP 98
[2019-03-10 10:14] VITALS: BMI 32.3
[2019-03-10 10:19] LABS: Glucose,Whole Blood 138 mg/dL (75-99)
[2019-03-10] MEDS ORDERED: IV FLUID CONTINUATION 1,000 ML IV ONE (10:41)
--- NOTE | 2019-03-10 10:42 | P.PCN ---
Date of Procedure: 03/10/19 Procedure(s) Performed: Description of Procedure: PREOPERATIVE DIAGNOSIS:Right hip osteoarthritis POSTOPERATIVE DIAGNOSIS: same PROCEDURES: Right intra-articular hip injection with fluoroscopy ANESTHESIA: Moderate sedation with versed 2 mg ,and fentanyl 200 g EBL: Minimal PROCEDURE INDICATION: The patient with right hip pain secondary to osteoarthritis who has been unresponsive to conservative therapy. . PROCEDURE DESCRIPTION / TECHNIQUE: The patient was seen and identified in the preoperative area. Risks, benefits, complications, and alternatives were discussed with the patient (including but not limited to incomplete pain relief, bleeding, infection, nerve damage, and allergies to medications), the patient agreed to proceed with the procedure and signed the consent after all questions were answered. Patient was taken to the OR and time out was completed to verify proper patient, position, laterality of pain, and allergies. Pt was placed in the supine position. IV was started. Vital signs remained stable throughout the procedure. The right hip area was prepped and draped in the usual sterile fashion. Vital signs were closely monitored during the procedure. moderate sedation was used during the procedure to decrease patients anxiety. Using AP fluoroscopy, the femoral neck was identified, marked, and localized with 1% lidocaine. Subsequently, a 22 gauge 5-inch spinal needle was advanced guided by fluoroscopy to the 11 o'clock position on the femoral neck until the needle was felt entering the hip capsule. Isovue-200 contrast was injected demonstrate an arthrogram. After negative aspiration for CSF or heme and in the absence of paresthesias, the full 6 ml ml of the block solution containing Depo- Medrol 40 mg and 5 mL of preservative-free 0.5% ropivacaine was injected. At the end of the procedure, the skin was cleansed and bandages were applied. COMPLICATIONS: No acute complications. DISPOSITION / PLANS: The patient was transferred to the recovery area in a stable condition for observation and was discharged from the recovery room after meeting discharge criteria. Home discharge instructions given to the patient by the staff.
--- NOTE | 2019-03-10 10:43 | FL ---
Fluoroscopy INDICATION: Pain FINDINGS: Fluoroscopy time: 3 seconds. Images obtained: 1. IMPRESSIONS: 1. Documentation of fluoroscopy.
[2019-03-10 10:44] VITALS: RESP 16
[2019-03-10 11:05] VITALS: BP 126/77; PULSE 77
== END 2019-03-10 11:17 | disposition home or self-care (01) ==
LOC: ORPAIN 08:53
PROVIDERS: ATTEND Specialist
DX: M16.11 Unilateral primary osteoarthritis, right hip (principal); M25.551 Pain in right hip; Z88.0 Allergy status to penicillin; Z88.2 Allergy status to sulfonamides; Z88.8 Allergy status to other drugs, medicaments and biological substances
CPT/HCPCS: 20610; J2250; J1030; J3010; Q9966

== ENCOUNTER 2019-03-29 18:04 | Emergency (ER) | payer MEDICARE, BC ==
[2019-03-29 18:18] VITALS: RESP 18; TEMP 98.5
[2019-03-29] MEDS ORDERED: HYDROmorphone 1 MG/ML 1 ML SYRINGE IVP STA ×2 (18:41→19:53)
[2019-03-29] MEDS ORDERED: SODIUM CHLORIDE 0.9% 500 ML 500 ML IV STA (18:42)
[2019-03-29] MEDS ORDERED: methylPREDNISolone SOD SUCCI 125 MG/2 ML VIAL IV STA ×2 (18:42→20:33)
--- NOTE | 2019-03-29 19:06 | ED ---
General Adult HPI - General Chief complaint: Back Pain/Injury Stated complaint: Abd./back pain Time Seen by Provider: 03/29/19 18:31 Source: patient, RN notes reviewed, old records reviewed Mode of arrival: ambulatory Limitations: no limitations - History of Present Illness Initial comments: 63-year-old female patient with past history of multiple lumbar spine surgeries, reportedly 3 lumbar fusions in the last 5 years parents ED with right paralumbar back pain. Patient reports that she was very active today walking around and now has right paralumbar back pain radiates into her right groin region. Pt states that these symptoms are consistent with prior lumbar back pain exacerbations. Patient denies any falls or trauma. Patient denies any loss of bowel or bladder control, saddle anesthesia, lower extremity weakness. Patient denies any chest pain shortness of breath abdominal pain nausea vomiting or diarrhea. Systemic: Pt denies fatigue, fever/chills, rash. Pt denies weakness, night sweats, weight loss. Neuro: Pt denies headache, visual disturbances, syncope or pre-syncope. HEENT: Pt denies ocular discharge or irritation, otalgia, rhinorrhea, pharyngitis or notable lymphadenopathy. Cardiopulmonary: Pt denies chest pain, SOB, heart palpitations, dyspnea on exertion. Abdominal/GI: Pt denies abdominal pain, n/v/d. : Pt denies dysuria, burning w/ urination, frequency/urgency. Denies new onset urinary or bowel incontinence. MSK: Pt denies myalgia, loss of strength or function in extremities. Neuro: Pt denies new onset weakness, paresthesias. - Related Data Home Medications Medication Instructions Recorded Confirmed DULoxetine HCL [Cymbalta] 30 mg PO HS 10/03/15 03/29/19 hydrOXYzine PAMOATE [Vistaril] 25 mg PO Q6H PRN 05/26/18 03/29/19 metFORMIN HCL [Glucophage] 500 mg PO DAILY PRN 05/26/18 03/29/19 oxyCODONE-APAP 5-325MG [Percocet 1 tab PO QID 07/06/18 03/29/19 5-325 mg] tiZANidine [Zanaflex] 1 tab PO TID PRN 12/16/18 03/29/19 Previous Rx's Medication Instructions Recorded predniSONE 50 mg PO DAILY #4 tab 03/29/19 Allergies Allergy/AdvReac Type Severity Reaction Status Date / Time Penicillins Allergy Rash/Hives Verified 03/29/19 18:31 Sulfa (Sulfonamide Allergy Rash/Hives Verified 03/29/19 18:31 Antibiotics) steroids AdvReac makes Uncoded 03/29/19 18:18 blood sugar very high Review of Systems ROS Statement: Those systems with pertinent positive or pertinent negative responses have been documented in the HPI. ROS Other: All systems not noted in ROS Statement are negative. Past Medical History Past Medical History: Diabetes Mellitus, Hyperlipidemia, Hypertension, Musculoskeletal Disorder, Osteoarthritis (OA) Additional Past Medical History / Comment(s): chronic low back pain, DDD; T3 spinal hemangioma, L shoulder torn rotator cuff, severe bilateral carpal tunnel syndrome, reflex sympathetic dystrophy, left torn bicept; varicose veins bilateral legs, incontinence at times, chronic left knee pain, tingling left calf recently History of Any Multi-Drug Resistant Organisms: None Reported Past Surgical History: Back Surgery, Bladder Surgery, Cholecystectomy, Hysterectomy, Joint Replacement, Orthopedic Surgery Additional Past Surgical History / Comment(s): lumbar laminectomies/ decompression interbody fusion L3-L5, cervical fusion C5-C7, TOTAL LEFT KNEE, LEFT KNEE REVISION , BLADDER SUSPENSION, colonoscopy, florence bunionectomies , bilateral "eye lifts", nerve ablation on sacrum, R elbow cyst drained, pain pump inserted in back in 201703/09 GETTING OFF HANDICAPSCOOTER FET SHARP PAIN RT KNEE CANT BEND Past Anesthesia/Blood Transfusion Reactions: Motion Sickness, Postoperative Nausea & Vomiting (PONV) Additional Past Anesthesia/Blood Transfusion Reaction / Comment(s): Pt is claustrophobic. Past Psychological History: Anxiety, Depression, Panic Disorder Smoking Status: Former smoker Past Alcohol Use History: None Reported Past Drug Use History: None Reported - Past Family History Mother Family Medical History: Cancer Additional Family Medical History / Comment(s): Mother of lung cancer at age 58 yrs. Father Additional Family Medical History / Comment(s): Father was an alcoholic. General Exam - General Exam Comments Initial Comments: Constitutional: NAD, AOX3, Pt has pleasant affect. HEENT: NC/AT, trachea midline, neck supple, no lymphadenopathy. Posterior phary nx non erythematous, without exudates. External ears appear normal, without discharge. Mucous membranes moist. Eyes PERRLA, EOM intact. There is no scleral icterus. No pallor noted. Cardiopulmonary: RRR, no murmurs, rubs or gallops, no JVD noted. Lungs CTAB in anterior and posterior dave. No peripheral edema. Abdominal exam: Abdomen soft and non-distended. Abdomen non-tender to palpation in all 4 quadrants. Bowel sounds active in LLQ. No hepatosplenomegaly. No ecchymosis Neuro: CN II-XII grossly intact. No nuchal rigidity. No raccon eyes, no lay sign, no hemotympanum. No cervical spinal tenderness. MSK: No midline cervical thoracic lumbar tenderness to palpation. Moderate right paralumbar tenderness to palpation. Positive straight leg raise. 5/5 strength psoas and quadriceps muscles. Patient ambulatory. No posterior calf tenderness bilaterally, homans sign negative bilaterally. Posterior tibialis and radial pulse +2 bilaterally. Distal pulses intact and equal. Sensation intact in upper and lower extremities. Full active ROM in upper and lower extremities, 5/5 stregnth. : Adnexal region nontedner to palpation, no masses, no skin changes or erythema. Chaperogned by NORM Wheatley. Limitations: no limitations Course Vital Signs 03/29/19 03/29/19 18:15 20:58 Temperature 98.5 F Pulse Rate 66 64 Respiratory 18 18 Rate Blood Pressure 181/90 140/77 O2 Sat by Pulse 96 100 Oximetry Medical Decision Making - Medical Decision Making 63-year-old female patient with past history of multiple lumbar spine surgeries, reportedly 3 lumbar fusions in the last 5 years parents ED with right paralumbar back pain. Patient reports that she was very active today walking around and now has right paralumbar back pain radiates into her right groin region. Pt states that these symptoms are consistent with prior lumbar back pain exacerbations. Patient denies any falls or trauma. Patient denies any loss of bowel or bladder control, saddle anesthesia, lower extremity weakness. Patient denies any chest pain shortness of breath abdominal pain nausea vomiting or diarrhea. Pt VS initially displayed mild hypertension, vital signs within ac ceptable limits after pain control. Physical exam displayed: No midline cervical thoracic lumbar tenderness to palpation. Moderate right paralumbar tenderness to palpation. Positive straight leg raise. 5/5 strength psoas and quadriceps muscles. Patient ambulatory. No posterior calf tenderness bilaterally, homans sign negative bilaterally. Posterior tibialis and radial pulse +2 bilaterally. Distal pulses intact and equal. Laboratory investigations were nonimpressive. CT lumbar spine displayed multilevel fusion surgery. There is some sclerosis L2 L3. Stable L4-5 spondylolisthesis. Patient will be discharged with 4 days of steroids for acute exacerbation of chronic lumbar back pain. Patient continues pain medications and muscle relaxers at home. Patient will follow-up with pain management as well as orthopedic consult once 2 days. Patient return to ER patient worsens. Case discussed in depth with Dr. Abraham. - Lab Data Result diagrams: 03/29/19 19:10 03/29/19 19:10 Lab Results 03/29/19 03/29/19 Range/Units 19:10 19:10 WBC 9.9 (3.8-10.6) k/uL RBC 4.68 (3.80-5.40) m/uL Hgb 13.6 (11.4-16.0) gm/dL Hct 41.0 (34.0-46.0) % MCV 87.5 (80.0-100.0) fL MCH 29.0 (25.0-35.0) pg MCHC 33.1 (31.0-37.0) g/dL RDW 14.0 (11.5-15.5) % Plt Count 327 (150-450) k/uL Neutrophils % 53 % Lymphocytes % 35 % Monocytes % 7 % Eosinophils % 2 % Basophils % 1 % Neutrophils # 5.2 (1.3-7.7) k/uL Lymphocytes # 3.4 (1.0-4.8) k/uL Monocytes # 0.7 (0-1.0) k/uL Eosinophils # 0.2 (0-0.7) k/uL Basophils # 0.1 (0-0.2) k/uL Sodium 139 (137-145) mmol/L Potassium 3.9 (3.5-5.1) mmol/L Chloride 99 (98-107) mmol/L Carbon Dioxide 30 (22-30) mmol/L Anion Gap 10 mmol/L BUN 15 (7-17) mg/dL Creatinine 0.86 (0.52-1.04) mg/dL Est GFR (CKD-EPI)AfAm 84 (>60 ml/min/1.73 sqM) Est GFR (CKD-EPI)NonAf 73 (>60 ml/min/1.73 sqM) Glucose 118 H (74-99) mg/dL Calcium 9.2 (8.4-10.2) mg/dL Total Bilirubin 0.3 (0.2-1.3) mg/dL AST 35 (14-36) U/L ALT 36 (9-52) U/L Alkaline Phosphatase 108 (38-126) U/L Total Protein 7.6 (6.3-8.2) g/dL Albumin 4.5 (3.5-5.0) g/dL Disposition Clinical Impression: Lumbar back sprain Disposition: HOME SELF-CARE Condition: Stable Instructions (If sedation given, give patient instructions): Acute Low Back Pain (ED), Chronic Back Pain (DC) Additional Instructions: Patient to adhere to previously discussed treatment plan and will take medica tion(s) as directed. Patient to follow up with PCP in 1-2 days. Patient to return to ED if symptoms do not improve. Take steroids for next 4 days. Take all medications. Follow-up with pain management and previously established orthospine surgeon. Prescriptions: predniSONE 50 mg PO DAILY #4 tab Is patient prescribed a controlled substance at d/c from ED?: No Referrals: Seda Christina III, MD [Primary Care Provider] - 1-2 days
[2019-03-29] MEDS ORDERED: CYCLOBENZAPRINE 5 MG TAB PO STA (19:17)
[2019-03-29 19:28] LABS: Basophils # (A) 0.1 k/uL (0-0.2); Basophils % (A) 1 %; Eosinophils # (A) 0.2 k/uL (0-0.7); Eosinophils % (A) 2 %; HGB 13.6 gm/dL (11.4-16.0); Lymphocytes # (A) 3.4 k/uL (1.0-4.8); Lymphocytes % (A) 35 %; MCHC 33.1 g/dL (31.0-37.0); MCV 87.5 fL (80.0-100.0); Mean Platelet Volume 6.8; Monocytes # (A) 0.7 k/uL (0-1.0); Monocytes % (A) 7 %; Neutrophils # (A) 5.2 k/uL (1.3-7.7); Neutrophils % (A) 53 %; Platelet Count 327 k/uL (150-450); RBC 4.68 m/uL (3.80-5.40); WBC 9.9 k/uL (3.8-10.6)
[2019-03-29 19:32] LABS: Albumin 4.5 g/dL (3.5-5.0); Calcium 9.2 mg/dL (8.4-10.2); Potassium 3.9 mmol/L (3.5-5.1); Total Bilirubin 0.3 mg/dL (0.2-1.3); Total Protein 7.6 g/dL (6.3-8.2)
--- NOTE | 2019-03-29 20:54 | CT ---
EXAMINATION TYPE: CT lumbar spine wo con DATE OF EXAM: 03/29/2019 8:25 PM COMPARISON: HISTORY: Back/ RT groin pain. Hx back sx CT DLP: 1025 mGycm Automated exposure control for dose reduction was used. Unenhanced CT of the lumbar spine was performed. Bone and soft tissue window settings are submitted as well as coronal and sagittal reconstructions. Multiple axial sections were obtained from the level of T12-S1 5 vertebra with no contrast. Lumbar vertebra have fairly normal alignment. There is 3 mm anterior subluxation of L4 in relation L5 . There is posterior fusion surgery from L2 to L5. There is multilevel disc prosthesis. There is no c ompression fracture. There is osteosclerosis at L2 and L3 vertebral bodies. I see no focal bone destr uction. There is multilevel laminectomy defect. There is metal artifact and soft tissue detail is ayon ited in the lower lumbar spine. There is no paraspinal mass. Sacroiliac joints appear intact. IMPRESSION: Multilevel fusion surgery. There is some sclerosis and L2 and L3 vertebra that is new compared to old exam and could relate to chronic inflammatory process. No compression fracture. Stable minimal L4-5 spondylolisthesis.
[2019-03-29 20:59] VITALS: BP 140/77; PULSE 64
== END 2019-03-29 21:30 | disposition home or self-care (01) ==
LOC: EC 18:04
DX: S33.5XXA Sprain of ligaments of lumbar spine, initial encounter (principal); M43.16 Spondylolisthesis, lumbar region; R10.31 Right lower quadrant pain; E11.9 Type 2 diabetes mellitus without complications; M19.90 Unspecified osteoarthritis, unspecified site; G89.29 Other chronic pain; M54.5 Low back pain; M25.562 Pain in left knee; F32.9 Major depressive disorder, single episode, unspecified; F41.0 Panic disorder [episodic paroxysmal anxiety]; Z87.891 Personal history of nicotine dependence; Z79.891 Long term (current) use of opiate analgesic; Z79.899 Other long term (current) drug therapy; Z88.0 Allergy status to penicillin; Z88.2 Allergy status to sulfonamides; Z88.8 Allergy status to other drugs, medicaments and biological substances; Z96.652 Presence of left artificial knee joint; Z90.49 Acquired absence of other specified parts of digestive tract; Z53.29 Procedure and treatment not carried out because of patient's decision for other reasons
CPT/HCPCS: 36415; 80053; 85025; 72131; 99284; 96374; 96375; 96376; 96361 ×2; J2930; J1170

== ENCOUNTER → 2019-03-31 | Day surgery (SDC) | payer MEDICARE, BC ==
[2019-03-31 12:47] VITALS: BP 143/86; PULSE 60; RESP 16; TEMP 98.3
--- NOTE | 2019-03-31 14:42 | P.PCN ---
Date of Procedure: 03/31/19 Procedure(s) Performed: OPERATION: Intrathecal pain pump analysis, programming and reprogramming, and intrathecal pain pump refill. PREOPERATIVE DIAGNOSES: 1. near empty intrathecal pain pump time for refill. 2. 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 ANESTHESIA: None. CONDITION: Stable. Description of the procedure; Intrathecal pain pump analysed ,it showed patient currently had reservoir volume 7.1 mL. The patient is receiving medication Dilaudid 3 mg/ ml, and bupivacaine concent ration 1 mg per mL Patient receiving daily dose of Dilaudid 1.69 mg/day . Bupivacaine 0.56 mg per day , patient continued to have severe low back pain and she was recently admitted to [facility] emergency room because of intractable severe low back pain, she continued to have severe pain mainly on the right side with right buttock area on the right side The right hip area Pain is not well controlled , patient using medication for breakthrough pain Percocet 5/325 every 6 hours orally The location of the pump ( Left Buttuck ) Prepped with chlorhexidine x3 , then using 22-gauge needle Endoart kit advanced through the pump port, Total of ml removed from the pump, expected volume 7 ml , the pump refilled with the new medication total volume 40 ml . The concentration of Dilaudid [ 3 ] mg /ml , and bupivacaine 1 mg per mL, and because patient had severe low back pain we will give patient a bolus of 0.3 mg of Dilaudid over 10 minutes, ,and I increased the daily dose of Dilaudid to 1.84 mg per day , and bupivacaine increased to 0.61 mg per day ,which is equal to 8% increase in the daily dose of intrathecal medication Patient given prescription for Percocet 5/325 every 6 hours, and patient will follow up with the pain clinic in 2 months Examination today showed patient had severe tenderness over the right sacroiliac joint, for this isn't patient given prescription for Mobic 7.5 mg twice a day, and patient will be seen in the pain clinic in 3-4 weeks at that time if she continues to have severe right buttock pain then we will consider doing the right-sided sacroiliac joint steroid injections under fluoroscopy guidance, treatment plan discussed with the patient and her and they agreed with the treatment plan
== END ==
LOC: PNWHC3 12:22
PROVIDERS: ATTEND Specialist
DX: M96.1 Postlaminectomy syndrome, not elsewhere classified (principal); Z45.1 Encounter for adjustment and management of infusion pump; Z79.891 Long term (current) use of opiate analgesic
CPT/HCPCS: 62370

== ENCOUNTER → 2019-04-11 | Outpatient (CLI) | payer MEDICARE, BC ==
[2019-04-11 13:04] VITALS: BP 164/77; PULSE 63; RESP 16
--- NOTE | 2019-04-11 13:43 | P.PN ---
Subjective Progress Note Date: 04/11/19 This is follow-up visit for this 62 years MALE with a chronic history of severe low back pain, and she had multiple surgical interventions on her back , and she had fusion surgery, patient had an intrathecal pain pump implanted and she is currently on intrathecal Dilaudid 01.84 mg per day, and bupivacaine 0.6 mg per day patient continued to have severe low back pain with radiation to the buttock bilaterally , the pain is constant, not controlled with the current pain medication patient uses Percocet 10/325 every 6 hours, and she continued to have severe low back pain Physical Examinations : -Constitutiona : Cooperative , not in acute distress . -HEENT : nech : supple , no Lymphadenopathy , normal thyroid size . eyes : no ptosis , no icterus, no photophobia . - neurologic : Cranial nerve II to XII intact , no focal neurological deffecit . -psychatric : alert , oriented X 3 , appropriate affect , intact judgment and insight . -Lymphatic : no Lymphadenopathy . - musculoskeltal : Lumber spine moter stegnth lower extremities ,thigh and legs 5/5 Right side , 5/5 Left side deep tendon reflexes : normal Knee Jerk , normal ankle Jerk positive lumber facet Loading Test Range of motion of the lumbar spine Flexion 30 degrees, extension 10 degrees strait leg raising test , positive at degree Fabere test positive RT and positive LT . Sever tenderness over the Sacroiliac joint on the R and L sides [place] test positive bilaterally. Seated flexion test positive b ilaterally. . Assessment and plan= chronic pain syndrome , post laminectomy pain syndrome, Bilateral sacroiliitis Opioid tolerance I will increase the intrathecal pain pump dose to Dilaudid 2.1 mg per day and bupivacaine 0.7 mg per day Which is equal to 13% in decreasing the daily dose, and patient also given a bolus of the intrathecal medication Dilaudid 0.3 mg over 6 minutes Patient could benefit from bilateral sacroiliac joint steroid injection PQRS Measure Charge Sheet Measure #130: Documentation of Current Meds in Medical Chart: Patient's medications documented in chart Measure #226: Tobacco Use: Screen & Cessation Intervention: Pt not a tobacco user Measure #111: Pneumonia Vaccination: Pneumococcal vaccine NOT administered or previously given Measure #47: Advance Care Plan: Advance care planning discussed & documented, pt chose/unable to give Measure #412: Opioid Treatment Agreement: Documented signed opioid trtmnt agreemnt min once during opioid trtmnt Measure #408: Opioid Therapy Follow-up Evaluation: Patient had f/u eval minimum every 3 months during opioid therapy Measure #317: Preventitive Care & Scrn High Bld Press & F/U: Elevated blood pressure 164/77 Measure #128: Body Mass Index (BMI) Screening & Follow-up: BMI documented ABOVE normal parameters - f/u documented Measure #131: Pain Assessment & Follow-up: Pain positive & plan documented, Follow-up scheduled Measure #431: Unhealthy Alcohol Use Preventative Care & Scrn: Patient not marilyn ntified as an unhealthy alcohol user PQRS Narrative: - Controlled Substance Measures Is patient prescribed a controlled substance at discharge?: Yes When asked, does pt state using other controlled substances?: No If prescribed controlled substance>3 days was MAPS reviewed?: Yes If Rx opioid, was Start Talking consent form obtained?: Yes If opioid is for acute pain is fill amount 7 days or less?: No Was information provided regarding opioid addiction?: Yes Objective - Vital Signs Vital signs: Vital Signs Temp Pulse 63 04/11/19 13:00 Resp 16 04/11/19 13:00 BP 164/77 04/11/19 13:00 Pulse Ox 97 04/11/19 13:00 Intake & Output 04/10/19 04/11/19 04/11/19 18:59 06:59 18:59 Weight 68.039 kg
== END | disposition home or self-care (01) ==
LOC: PNWHC3 12:32
PROVIDERS: ATTEND Specialist
DX: G89.4 Chronic pain syndrome (principal); M96.1 Postlaminectomy syndrome, not elsewhere classified; M46.1 Sacroiliitis, not elsewhere classified; Z98.1 Arthrodesis status; Z79.891 Long term (current) use of opiate analgesic
CPT/HCPCS: 99211

== ENCOUNTER → 2019-04-25 | Outpatient (CLI) | payer MEDICARE, BC ==
[2019-04-25 15:33] LABS: Calcium 9.5 mg/dL (8.4-10.2)
--- NOTE | 2019-04-29 11:21 | ECHOF ---
Referral Reason:R60.0 localized edema MEASUREMENTS -------- HEIGHT: 154.9 cm WEIGHT: 72.6 kg BP: IVSd: 0.9 cm (0.6 - 1.1) LVIDd: 4.4 cm (3.9 - 5.3) LVPWd: 1.1 cm (0.6 - 1.1) IVSs: 1.7 cm LVIDs: 1.9 cm LVPWs: 1.7 cm LAESV Index (A-L): 24.16 ml/m Ao Diam: 2.5 cm (2.0 - 3.7) AV Cusp: 1.8 cm (1.5 - 2.6) LA Diam: 3.7 cm (2.7 - 3.8) MV EXCURSION: 17.007 mm (> 18.000) MV EF SLOPE: 116 mm/s (70 - 150) EPSS: 1.3 cm MV E Marquis: 0.91 m/s MV DecT: 249 ms MV A Marquis: 0.56 m/s MV E/A Ratio: 1.64 RAP: 5.00 mmHg RVSP: 34.52 mmHg FINDINGS -------- Sinus rhythm. This was a technically adequate study. The left ventricular size is normal. Left ventricular wall thickness is normal. Overall left vent ricular systolic function is normal with, an EF between 55 - 60 %. The right ventricle is normal in size. The left atrial size is normal. Normal LA size by volume 22+/-6 ml/m2. The right atrial size is normal. Interatrial and interventricular septum intact. The aortic valve is trileaflet and appears structurally normal. The mitral valve is normal. Mild mitral regurgitation is present. The tricuspid valve appears structurally normal. Mild tricuspid regurgitation present. Right vent ricular systolic pressure is normal at < 35 mmHg. There is no pulmonic regurgitation present. The aortic root size is normal. Normal inferior vena cava with normal inspiratory collapse consistent with estimated right atrial pre ssure of 5 mmHg. There is no pericardial effusion. CONCLUSIONS -------- 1. Sinus rhythm. 2. This was a technically adequate study. 3. The left ventricular size is normal. 4. Left ventricular wall thickness is normal. 5. Overall left ventricular systolic function is normal with, an EF between 55 - 60 %. 6. The right ventricle is normal in size. 7. The left atrial size is normal. 8. Normal LA size by volume 22+/-6 ml/m2. 9. The right atrial size is normal. 10. Interatrial and interventricular septum intact. 11. The aortic valve is trileaflet and appears structurally normal. 12. The mitral valve is normal. 13. Mild mitral regurgitation is present. 14. The tricuspid valve appears structurally normal. 15. Mild tricuspid regurgitation present. 16. Right ventricular systolic pressure is normal at < 35 mmHg. 17. There is no pulmonic regurgitation present. 18. The aortic root size is normal. 19. Normal inferior vena cava with normal inspiratory collapse consistent with estimated right atrial pressure of 5 mmHg. 20. There is no pericardial effusion. STERILIZER MACHINE OPERATOR: Charis Reveles RDCS
== END | disposition home or self-care (01) ==
LOC: RADECHMAIN 13:40
PROVIDERS: ATTEND Family Medicine
DX: I08.1 Rheumatic disorders of both mitral and tricuspid valves (principal); R63.5 Abnormal weight gain
CPT/HCPCS: 80048; 93306

== ENCOUNTER 2019-04-28 06:16 | Day surgery (SDC) | payer MEDICARE, BC ==
[2019-04-27 10:08] VITALS: BMI 30.2
[~2019-04-28 06:16] MED LIST changes: -BUPIVACAIN-EPI 0.5%-1:200,000 30 ML VIAL SQ ONE; -DEXAMETHASONE SOD PHOSPHATE 10 MG/ML 1 ML VIAL IV ONE; -IOPAMIDOL M200 10 ML VIAL MISCELLANE ONE; -LACTATED RINGERS 1,000 ML IV ONE; -LIDOCAINE 1% 20 ML VIAL (10MG/ML) FOR IV START INTRADERMA ONE; -LIDOCAINE 1% INJ 10MG/ML (20 ML MDV) ONE; -LIDOCAINE 1% INJ 10MG/ML (20 ML MDV) SQ ONE; -MIDAZOLAM 2 MG/2 ML VIAL IV PRN; -MIDAZOLAM 2 MG/2 ML VIAL ONE; -ONDANSETRON 4 MG/2 ML VIAL IVP ONE; -PROPOFOL 10 MG/ML 20 ML VIAL IV ONE; -SCOPOLAMINE 1.5MG/72HR PATCH TRANSDERM ONE; -SUCCINYLCHOLINE CHLORIDE 100 MG/5 ML SYR IV ONE; -ceFAZolin 1,000 MG in SODIUM CHLORIDE 0.9% 1,000 ML IRRIGATION ONE; -ceFAZolin IN SWFI 2 GM/20 ML SYRINGE IVP ONE; -ePHEDrine SULFATE/0.9% NACL/PF 50 MG/5 ML SYRINGE IV ONE; -fentaNYL (PF) 50 MCG/ML 2 ML AMP IV PRN; -fentaNYL (PF) 50 MCG/ML 2 ML AMP ONE
[2019-04-28 06:55] VITALS: BP 123/74; PULSE 59; RESP 16; TEMP 97.3
--- NOTE | 2019-04-28 07:07 | P.PN ---
Progress Note - Text Progress Note Date: 04/28/19 Patient was scheduled to undergo bilateral SI joint injection today. She reported preoperative. She reports that about one week ago she noticed a cut on her left lower extremity which has been oozing. She also reports that her extremity is more swollen and red than usual, especially compared to her right lower extremity. She reported to her PCP office and Neosporin ointment was applied and her leg was bandaged. She denies fevers, chills. She did not have any lab work done with PCP. On exam her left leg is erythematous, swollen and she has a cut on the lateral aspect of her left leg as well as on her second toe. Given concern for cellulitis, and potential for steroid injection to exacerbate infection, her procedure was canceled and she was asked to follow with her PCP. We will reschedule bilateral SI joint injection once cellulitis has been treated/ruled out
== END 2019-04-28 06:54 | disposition home or self-care (01) ==
LOC: ORPAIN 06:16
PROVIDERS: ATTEND Anesthesiology
DX: Z53.09 Procedure and treatment not carried out because of other contraindication (principal)

== ENCOUNTER → 2019-05-19 | Day surgery (SDC) | payer MEDICARE, BC ==
[2019-05-19 13:50] VITALS: BP 153/89; PULSE 53; RESP 18
--- NOTE | 2019-05-19 14:50 | P.PCN ---
Date of Procedure: 05/19/19 Procedure(s) Performed: OPERATION: Intrathecal pain pump analysis, programming and reprogramming, and intrathecal pain pump refill. PREOPERATIVE DIAGNOSES: 1. near empty intrathecal pain pump time for refill. 2. 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 ANESTHESIA: None. CONDITION: Stable. Description of the procedure; Intrathecal pain pump analysed ,it showed patient currently had reservoir volume 6.5 mL. The patient is receiving medication Dilaudid 3 mg/ ml, and bupivacaine concen tration 1 mg per mL Patient receiving daily dose of Dilaudid 2.1 mg/day . Bupivacaine 0,7 mg per day , patient continued to have severe low back pain and she continued to have intractable severe low back pain, with radiation to the right buttock Pain is not well controlled , patient using medication for breakthrough pain Percocet 10/325 every 6 hours orally The location of the pump ( Left Buttuck ) Prepped with chlorhexidine x3 , then using 22-gauge needle [place] kit advanced through the pump port, Total of 7 ml removed from the pump, expected volume 6.5 ml , the pump refilled with the new medication total volume 40 ml . The concentration of Dilaudid [ 3 ] mg /ml , and bupivacaine 1 mg per mL, and because patient had severe low back pain we will give patient a bolus of 0.3 mg of Dilaudid over 10 minutes, ,and I increased the daily dose of Dilaudid to 2.4 mg per day , and bupivacaine increased to 0.79 mg per day ,which is equal to 14% increase in the daily dose of intrathecal medication Patient given prescription for Percocet 10/325 every 6 hours, and patient will follow up with the pain clinic in 2 months Examination today showed patient had severe tenderness over the right sacroiliac joint, the right-sided sacroiliac joint steroid injections under fluoroscopy guidance, patient was scheduled to have sacroiliac joint steroid injection a few weeks ago on the procedure was canceled because of possible cellulitis in her lower extremity but currently everything is healed and she has no cellulitis or dermatitis , and she will be in good candidate to have right-sided sacroiliac joint steroid injection under fluoroscopy guidance ,treatment plan discussed with the patient and her and they agreed with the treatment plan Labs reviewed and it was appropriate.
== END ==
LOC: PNWHC3 12:50
PROVIDERS: ATTEND Specialist
DX: M96.1 Postlaminectomy syndrome, not elsewhere classified (principal); Z45.1 Encounter for adjustment and management of infusion pump; Z79.891 Long term (current) use of opiate analgesic
CPT/HCPCS: 62370

== ENCOUNTER 2019-05-31 06:02 | Day surgery (SDC) | payer MEDICARE, BC ==
[2019-05-25 11:01] VITALS: BMI 29.2
[2019-05-31 06:38] VITALS: TEMP 98.3
[2019-05-31 06:38] LABS: Glucose,Whole Blood 123 mg/dL (75-99)
--- NOTE | 2019-05-31 07:16 | P.PCN ---
Date of Procedure: 05/31/19 Procedure(s) Performed: Procedure= Right sacro iliac joints steroid injection under fluoroscopy guidance (fluoroscopy image stored on file in the radiology Department ) Preoperative diagnosis= 1-Right sacroiliitis 2-failed back surgery syndrome lumbar area Postoperative diagnosis= same as pre-operative diagnoses Complication = none Condition= stable Anesthesia= moderate sedation with intravenous Versed 2 mg , and fentanyl 200 micrograms and local infiltration with lidocaine 1% 2 mL Indication for the procedure= patient complaining of low back pain , examination was positive for severe tenderness over the sacroiliac joints bilaterally and patient diagnosed with sacroiliitis, for this reason he/ she was good candidate for sacroiliac joint steroid injection. Description of the procedure= procedure risk and benefits discussed with the patient, including but not limited, risk of infection and bleeding, and ALLERGIC reaction to the medication and not complete pain relief and patient agreed with the preceding patient taken to the operating room, placed in prone position or standard monitors applied to the patient then after induction of anesthesia back prepped with chlorhexidine 3 times , Then under strict sterile technique, the right sacroiliac joint the was identified under fluoroscopy guidance been local infiltration of the skin and subcu interstitial with lidocaine 1% then 25-gauge Quincke Needle advanced slowly under fluoroscopy and placed in the right sacroiliac joint needle placement confirmed with AP and oblique and lateral view and after appropriate needle placement confirmed and after negative aspiration, or heme , then Ropivacaine 0.5% 3 mL, and 40 mg of Depo-Medrol mixed together and injected in the right sacroiliac joint after negative aspiration patient tolerated the procedure well without any complication.
[2019-05-31] MEDS ORDERED: IV FLUID CONTINUATION 700 ML IV ONE (07:23)
--- NOTE | 2019-05-31 07:42 | FL ---
EXAMINATION TYPE: FL guided pain mgmt statistic DATE OF EXAM: 05/31/2019 CLINICAL HISTORY: Low back and right sacroiliac joint pain. TECHNIQUE: Fluoroscopy. COMPARISON: None. FINDINGS: Fluoroscopic guidance was provided during pain relief procedure performed by Dr. Medrano . A total of 10 seconds of fluoroscopic time was utilized during the procedure and single spot fluor oscopic image is acquired. Single image acquired shows needle localization at level of sacroiliac luke int. IMPRESSION: As Above.
[2019-05-31 07:45] VITALS: BP 131/80; PULSE 69; RESP 18
== END 2019-05-31 08:17 | disposition home or self-care (01) ==
LOC: ORPAIN 06:02
PROVIDERS: ATTEND Specialist
DX: M46.1 Sacroiliitis, not elsewhere classified (principal); M96.1 Postlaminectomy syndrome, not elsewhere classified; I10 Essential (primary) hypertension; Z91.040 Latex allergy status; Z88.0 Allergy status to penicillin; Z88.2 Allergy status to sulfonamides; Z91.09 Other allergy status, other than to drugs and biological substances
CPT/HCPCS: 84132; J2250; J1030; J3010; G0260; 27096; 99152

== ENCOUNTER → 2019-06-30 | Day surgery (SDC) | payer MEDICARE, BC ==
[2019-06-30 11:14] VITALS: BP 111/70; PULSE 63; RESP 16
--- NOTE | 2019-06-30 14:10 | P.PAINPG ---
Subjective Progress Note Date: 06/30/19 Patient is 63-year-old female who returns to follow for intrathecal pump refill and after SI joint procedure. She states that she has not had any relief with her SI joint injection. She thinks that something else is going on in her back and would like that further evaluated. This is especially in light of her multiple procedures in her low back. She does not have any bowel or bladder dysfunction or other red flag symptoms. She is interested in increasing the dose on her interthecal pump, because her pain is at all controlled. Per her last visit we were increasing the concentration of her Dilaudid in the intrathecal pump. She is also taking percocet, which was refilled The intrathecal pump was evaluated and reprogram. Solution was changed from dilaudid 3.0 mg/ML and bupivicaine 1.0mg/ml to Dilaudid 5.0 mg/mL and bupivicaine 2.0mg/mL OPERATION: Intrathecal pain pump analysis, programming and reprogramming, and intrathecal pain pump refill. PREOPERATIVE DIAGNOSES: 1. near empty intrathecal pain pump time for refill. 2. opioid tolerance 3. failed back surgery syndrome lumbar area POSTOPERATIVE DIAGNOSES: 1. near empty intrathecal pain pump time for refill. 2. opioid tolerance 3. failed back surgery syndrome lumbar area ANESTHESIA: None. CONDITION: Stable. Description of the procedure; Intrathecal pain pump analysed ,it showed patient currently had reservoir volume 6.5 mL. Patient receiving daily dose of Dilaudid 2.398 mg per dayand bupivacaine 0.7993 mg per day mg/day. The location of the buttock was prepped with chlorhexidine , then using 22-gauge needle Snipd kit advanced through the pump port, Total of 7 ml removed from the pump, the pump refills with the new medication total volume 40 ml . The concentration 5 mg /ml Dilaudid , and the bupivacaine concentration 2 mg/ml. The dose was increased by five percent to 2.5206 Dilaudid mg/day and bupivacaine 1.0082 mg/day and patient will follow up with the pain clinic in 2 months. She was bolused with 3 mg of dilaudid over 10 minutes and was instructed to use less oral medication. Objective - Vital Signs Vital signs: Vital Signs Temp Pulse 63 06/30/19 11:11 Resp 16 06/30/19 11:11 BP 111/70 06/30/19 11:11 Pulse Ox 96 06/30/19 11:11 - Exam Vital Signs: Reviewed in EMR GENERAL: Well appearing, in no acute distress, sitting in a wheelchair PSYCH: Mood and affect is appropriate. Awake, alert, and oriented Lumbar spine: She does have pain to palpation in the lumbar spine. Buttocks: Pain to palpation to bilateral PSIS, right is worse than left Extremities: Peripheral joint ROM is full and pain free without obvious instability or laxity in all four extremities. No edema or skin discolorations noted. Gait: Gait is anantalgic NEUR: Bilateral upper and lower extremity coordination and muscle stretch reflexes are physiologic and symmetric. Negative clonus. No loss of sensation is noted. Cranial nerves are grossly intact. She is in a wheelchair. Assessment and Plan Assessment: Assessment: 1. Failed back surgery 2. Intrathecal pump 3. Chronic oral opioid use Plan: 1. Explanation: Opioid and psychological risk scores were reviewed. Diagnoses, prognoses, and multiple treatment options including but not limited to physical therapy, interventional therapies, adjuvant medical therapies, narcotic medication therapies, and surgery were discussed with the patient and all questions were answered to the patient's satisfaction. She was told to use less of her oral medications as sh 2. Opioid agreement: In place, please see above for intrathecal pump refill 3. Counseling: Patient was advised to stay active 4. Procedures: none at this time 5. Consultations: None 6. Investigations: MRI with contrast ordered 7. Medications: Her intrathecal pump and Percocet were refilled 8. Disposition: 8 weeks, her pump alarm date is 09/11/2019, thus she will follow up in clinic on 08/31/2019 , PQRS Measure Charge Sheet Measure #226: Tobacco Use: Screen & Cessation Intervention: Pt not a tobacco user Measure #412: Opioid Treatment Agreement: Documented signed opioid trtmnt agreemnt min once during opioid trtmnt Measure #408: Opioid Therapy Follow-up Evaluation: Patient had f/u eval minimum every 3 months during opioid therapy Measure #317: Preventitive Care & Scrn High Bld Press & F/U: Normal blood pressure, f/u not required Measure #131: Pain Assessment & Follow-up: Pain positive & plan documented, Follow-up scheduled PQRS Narrative: Smoking Status Former smoker Narcotic Agreement Date Signed 06/15/18 Blood Pressure 111/70 Pain Intensity [Lower Back] 7 Scale Used Numeric (1 - 10) Hx Alcohol Use (MH) No Home Medications: Ambulatory Orders DULoxetine HCL [Cymbalta] 30 mg PO HS 10/03/15 hydrOXYzine PAMOATE [Vistaril] 25 mg PO Q6H PRN 05/26/18 metFORMIN HCL [Glucophage] 500 mg PO DAILY PRN 05/26/18 tiZANidine [Zanaflex] 4 mg PO TID PRN 12/16/18 oxyCODONE HCL/ACETAMINOPHEN [Percocet 10-325 mg] 1 tab PO Q6HR PRN 03/31/19 Furosemide [Lasix] 20 mg PO BID 04/27/19 Ondansetron [Zofran] 4 mg PO Q8HR PRN 04/27/19 Potassium Chloride [Klor-Con 10] 10 meq PO BID 04/27/19 Controlled Substance Measures - Controlled Substance Measures Is patient prescribed a controlled substance at discharge?: Yes When asked, does pt state using other controlled substances?: No If prescribed controlled substance>3 days was MAPS reviewed?: Yes If Rx opioid, was Start Talking consent form obtained?: Yes If opioid is for acute pain is fill amount 7 days or less?: Yes Was information provided regarding opioid addiction?: Yes
== END ==
LOC: PNWHC3 10:56
PROVIDERS: ATTEND Student in an Organized Health Care Education/Training Program
DX: Z45.49 Encounter for adjustment and management of other implanted nervous system device (principal); M96.1 Postlaminectomy syndrome, not elsewhere classified; Z79.891 Long term (current) use of opiate analgesic; Z79.899 Other long term (current) drug therapy; Z98.890 Other specified postprocedural states; Z87.891 Personal history of nicotine dependence
CPT/HCPCS: 62370

== ENCOUNTER → 2019-07-15 | Outpatient (CLI) | payer MEDICARE, BC ==
--- NOTE | 2019-07-15 23:10 | MR ---
EXAMINATION TYPE: MR lspine/sacrum wo/w con DATE OF EXAM: 07/15/2019 COMPARISON: 07/01/2018 HISTORY: Low back pain TECHNIQUE: Multiplanar, multisequence images of the lumbar spine is performed without and with IV contrast, util izing 7 ml mL intravenous Gadavist FINDINGS: Lumbar vertebra have normal alignment. There is posterior fusion surgery from L2 to L5. The re is metal artifact. There is no sign of compression fracture. There is very minimal few millimeter anterior subluxation of L4 in relation L5. There is narrowing of the spinal canal at L1 2 related to some facet arthropathy. The sacroiliac joints appear normal. There is no presacral edema. The contra st images show no pathologic enhancement. IMPRESSION: There is a minimal first-degree L4-5 spondylolisthesis. Multilevel posterior fusion surgery. No evide nce of fracture. There is a mild relative spinal stenosis at L1-2 due to facet disease. Normal sacrum . There is clearing of the spinal stenosis at L2-3 compared to old exam. Mild spinal stenosis at L1 2 is a change compared to old exam.
== END | disposition home or self-care (01) ==
LOC: RADMRIMAIN 12:08
PROVIDERS: ATTEND Student in an Organized Health Care Education/Training Program
DX: M48.061 Spinal stenosis, lumbar region without neurogenic claudication (principal); M43.16 Spondylolisthesis, lumbar region; G95.89 Other specified diseases of spinal cord; Z98.1 Arthrodesis status; M53.3 Sacrococcygeal disorders, not elsewhere classified
CPT/HCPCS: 72158; 72197; A9585

== ENCOUNTER → 2019-08-29 | Outpatient (CLI) | payer MEDICARE, BC ==
--- NOTE | 2019-08-30 04:25 | BD ---
EXAMINATION TYPE: Axial Bone Density DATE OF EXAM: 08/29/2019 COMPARISON: 12/24/2015 CLINICAL HISTORY: 63-year-old female postmenopausal screening Height: 60.5 IN Weight: 174 LBS FRAX RISK QUESTIONS: Secondary Osteoporosis: 3. Menopause before 45: YES PARTIAL HYST AGE 27 RISK FACTORS HISTORY OF: Surgery to Spine: L-SPINE When: 2014 AND EACH YEAR AFTER Active: LIMITED Diet low in dairy products/other sources of calcium: YES Postmenopausal woman: PARTIAL HYST AGE 27 Frequent falls: YES DIZZINESS/BALANCE ISSUES MEDICATIONS: Additional Medications: CALCIUM, VIT D, CYMBALTA, LASIX, POTASSIUM, PERCOCET, VISTEROL, ZANAFLEX, EXAM MEASUREMENTS: Bone mineral densitometry was performed using the [employer]. Bone mineral density about the R hip (g/cm2): 0.806 Bone mineral density about the L hip (g/cm2): 0.789 T Score values are as follows: -----R Neck: -1.7 -----L Neck: -1.8 -----R Total: -0.8 -----L Total: -1.0 Bone mineral density has: Increased 3.1% since study of: 12/24/2015 Bone mineral density about the L Wrist (g/cm2): 0.686 T Score values are as follows: -----Dist. R+U: 0.7 -----Prox. R+U: -0.4 -----Radius total: 0.2 Bone mineral density BASELINE IMPRESSION: Osteopenia (T Score between -2.5 and -1). There is slightly increased risk of fracture and the patient may be considered for treatment. Re-Screen 2-5 years. NOTE: T-SCORE=SD OF THE YOUNG ADULT MEAN.
== END | disposition home or self-care (01) ==
LOC: RADBDWWP 08:23
PROVIDERS: ATTEND Family Medicine
DX: M85.80 Other specified disorders of bone density and structure, unspecified site (principal)
CPT/HCPCS: 77080

== ENCOUNTER → 2019-09-07 | Day surgery (SDC) | payer MEDICARE, BC ==
[2019-09-07 14:02] VITALS: BP 137/131; PULSE 56; RESP 18
--- NOTE | 2019-09-07 15:27 | P.PCN ---
Date of Procedure: 09/07/19 Procedure(s) Performed: OPERATION: Intrathecal pain pump analysis, programming and reprogramming, and intrathecal pain pump refill. PREOPERATIVE DIAGNOSES: 1. near empty intrathecal pain pump time for refill. 2. opioid tolerance 3. failed back surgery syndrome lumbar area POSTOPERATIVE DIAGNOSES: 1. near empty intrathecal pain pump time for refill. 2. opioid tolerance 3. failed back surgery syndrome lumbar area ANESTHESIA: lidocaine 1%- 0.2cc CONDITION: Stable. Description of the procedure; Intrathecal pain pump analysed ,it showed patient currently had reservoir volume 5.2 mL. Patient receiving daily dose of Dilaudid 2.5206 mg per day and bupivacaine 1.0082 mg/day. The location of the left buttock was prepped with chlorhexidine , then using 22- gauge needle [employer] kit advanced through the pump port, Total of 6.5 ml removed from the pump, the pump refilled with the new medication total volume 40 ml . The concentration 5 mg /ml Dilaudid , and the bupivacaine concentration 2 mg/ml. The dose was increased by 10 percent to 2.7719 Dilaudid mg/day and bupivacaine 1.1088 mg/day and patient will follow up with the pain clinic in 2 months. She is scheduled to have lumbar surgery at [facility] on Sep 22.
== END ==
LOC: PNWHC3 12:53
PROVIDERS: ATTEND Anesthesiology
DX: Z45.1 Encounter for adjustment and management of infusion pump (principal); Z79.891 Long term (current) use of opiate analgesic; M96.1 Postlaminectomy syndrome, not elsewhere classified
CPT/HCPCS: 62370

== ENCOUNTER → 2019-10-22 | Outpatient (CLI) | payer MEDICARE, BC ==
--- NOTE | 2019-10-22 14:46 | XR ---
EXAMINATION TYPE: XR lumbar spine 2 or 3V DATE OF EXAM: 10/22/2019 CLINICAL HISTORY: Recent lumbar surgery with hardware removal. TECHNIQUE: Frontal and lateral images of the lumbar spine are obtained. COMPARISON: 12/18/2018 FINDINGS: Surgical fusion is seen of L1-L5. Intervertebral disc spacers are present throughout. Heter otopic ossification is also seen throughout. Vertebral body heights are maintained as is alignment. N o hardware fracture is identified. Intervertebral disc space narrowing of the thoracolumbar junction. Cholecystectomy clips are noted. IMPRESSION: No malalignment, vertebral body height loss, or hardware fracture. Postsurgical change fr om L1 through L5.
== END | disposition home or self-care (01) ==
LOC: RADXRMAIN 08:41
DX: Z98.1 Arthrodesis status (principal)
CPT/HCPCS: 72100

== ENCOUNTER → 2019-11-01 | Day surgery (SDC) | payer MEDICARE, BC ==
[2019-11-01 12:14] VITALS: BP 153/82; PULSE 60; RESP 18
--- NOTE | 2019-11-02 07:18 | P.PCN ---
Date of Procedure: 11/01/19 Procedure(s) Performed: OPERATION: Intrathecal pain pump analysis, programming and reprogramming, and intrathecal pain pump refill. PREOPERATIVE DIAGNOSES: 1. near empty intrathecal pain pump time for refill. 2. 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 ANESTHESIA: None. CONDITION: Stable. Description of the procedure; Intrathecal pain pump analysed ,it showed patient currently had reservoir volume 9.6 mL. The patient is receiving medication Dilaudid 5 mg/ ml, and bupivacaine concentr ation 2 mg per mL Patient receiving daily dose of Dilaudid 2.7 mg/day . Bupivacaine 1.1 mg per day , patient continued to have severe low back pain and she continued to have intractable severe low back pain, with radiation to the right buttock Pain is not well controlled , patient using medication for breakthrough pain Percocet 10/325 every 6 hours orally The location of the pump ( Left Buttuck ) Prepped with chlorhexidine x3 , then using 22-gauge needle [employer] kit advanced through the pump port, Total of 11 ml removed from the pump, expected volume 9.6 ml , the pump refilled with the new medication total volume 40 ml . The concentration of Dilaudid [ 5 ] mg /ml , and bupivacaine 2 mg per mL, and because patient had severe low back pain we will give patient a bolus of 0.3 mg of Dilaudid over 12 minutes, ,and I increased the daily dose of Dilaudid to 3.1 mg per day , and bupivacaine increased to 1.23 mg per day ,which is equal to 11 % increase in the daily dose of intrathecal medication, I increased the intrathecal dose of the "because patient complaining of severe and increased pain., Patient given prescription for Percocet 10/325 every 6 hours, dispensed 120 with one refill and patient will follow up with the pain clinic in 2 months Labs reviewed and it was appropriate. note= patient had recent lumbar laminectomy and fusion surgery done by Dr. Qiu recently and she was given prescription for Percocet 10/[address] Qiu for acute postop pain control, Physical Examinations : -Constitutiona : Cooperative , not in acute distress . -HEENT : nech : supple , no Lymphadenopathy , normal thyroid size . : eyes : no ptosis , no icterus, no photophobia . . - neurologic : Cranial nerve II to XII intact , no focal neurological deffecit . -psychatric : alert , oriented X 3 , appropriate affect , intact judgment and insight . -Lymphatic : no Lymphadenopathy . - musculoskeltal : Lumber spine moter stegnth lower extremities ,thigh and legs 4/5 Right side , 4/5 Left side. - PQRS measures = - Patient's medications are documented in the chart. -Tobacco use is negative and counseling.Given. -Patient's has not received pneumococcal vaccine. -Advanced care planning discussed, patient not eligible. -Opiate contract signed. -Pain positive and follow-up visit/procedure is scheduled. -Patient's blood pressure measured 161/80 and documented in the record ,and patient will follow up with the primary care. -Patient's weight was measured and body mass index [ 30 ] above the,within the normal limits and counseling was done. and patient instructed to follow-up with the primary care physician. -Patient was not identified as an unhealthy alcohol user
== END ==
LOC: PNWHC3 11:54
PROVIDERS: ATTEND Specialist
DX: M96.1 Postlaminectomy syndrome, not elsewhere classified (principal); Z45.1 Encounter for adjustment and management of infusion pump; Z79.891 Long term (current) use of opiate analgesic
CPT/HCPCS: 62370

== ENCOUNTER → 2019-12-14 | Outpatient (CLI) | payer MEDICARE, BC ==
--- NOTE | 2019-12-14 08:34 | XR ---
EXAMINATION TYPE: XR lumbar spine 2 or 3V DATE OF EXAM: 12/14/2019 CLINICAL HISTORY: Postop evaluation after lumbar fusion. TECHNIQUE: Frontal and lateral images of the lumbar spine are obtained. COMPARISON: 10/22/2019 FINDINGS: There is redemonstration of surgical fusion of L1-L5 with diffuse heterotopic ossification. Intervertebral disc spacers are seen at L1-L2, L2-L3, L3-L4, and L4-L5. Lumbar spine vertebral body heights and overall alignment are maintained. No hardware fracture seen. Moderate atherosclerosis of the abdominal aorta. IMPRESSION: Similar exam to 10/22/2019 with no new malalignment or vertebral body height loss. Postsur gical change from L1 through L5 is redemonstrated.
== END | disposition home or self-care (01) ==
LOC: RADXRMAIN 08:05
DX: M48.061 Spinal stenosis, lumbar region without neurogenic claudication (principal); Z98.890 Other specified postprocedural states
CPT/HCPCS: 72100

== ENCOUNTER → 2019-12-27 | Day surgery (SDC) | payer MEDICARE, BC ==
[2019-12-27 11:19] VITALS: BP 107/53; PULSE 51; RESP 16
--- NOTE | 2019-12-27 11:49 | P.PCN ---
Date of Procedure: 12/27/19 Surgeon: Hayder Reyez Pathology: none sent Condition: stable Disposition: no change Description of Procedure: OPERATION: Intrathecal pain pump analysis, programming and reprogramming, and intrathecal pain pump refill. PREOPERATIVE DIAGNOSES: 1. near empty intrathecal pain pump time for refill. 2. 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 ANESTHESIA: None. CONDITION: Stable. Description of the procedure; Intrathecal pain pump analysed ,it showed patient currently had reservoir volume 5.4 mL. The patient is receiving medication Dilaudid 5 mg/ ml, and bupivacaine concentration 2 mg per mL Patient receiving daily dose of Dilaudid 3.1 mg/day . Bupivacaine 1.23 mg per day , patient continued to have severe low back pain and she continued to have intractable severe low back pain, with radiation to the right buttock . The patient getting physical therapy currently. patient using medication for breakthrough pain Percocet 10/325 every 6 hours orally The location of the pump ( Left Buttuck ) Prepped with chlorhexidine x3 , then using 22-gauge needle [employer] kit advanced through the pump port, Total of 7 ml removed from the pump, expected volume 5.4 ml , the pump refilled with the new medication total volume 40 ml . No changes in the Dilaudid rate were made. The concentration of Dilaudid [ 5 ] mg /ml , and bupivacaine 2 mg per mL, Patient given prescription for Percocet 10/325 every 6 hours, dispensed 120 with one refill and patient will follow up with the pain clinic in 2 months l, Physical Examinations : -Constitutiona : Cooperative , not in acute distress . -HEENT : nech : supple , no Lymphadenopathy , normal thyroid size . : eyes : no ptosis , no icterus, no photophobia . . - neurologic : Cranial nerve II to XII intact , no focal neurological deffecit . -psychatric : alert , oriented X 3 , appropriate affect , intact judgment and insight . -Lymphatic : no Lymphadenopathy . - musculoskeltal : Lumber spine moter stegnth lower extremities ,thigh and legs 4/5 Right side , 4/5 Left side. Decreased but symmetrical knee reflexes bilaterally and decreased but symmetrical ankle reflexes bilaterally. - PQRS measures = - Patient's medications are documented in the chart. -Tobacco use is negative and counseling.Given. -Patient's has not received pneumococcal vaccine. -Advanced care planning discussed, patient not eligible. -Opiate contract signed. -Pain positive and follow-up visit/procedure is scheduled. -Patient's blood pressure measured 161/80 and documented in the record ,and patient will follow up with the primary care. -Patient's weight was measured and body mass index [ 30 ] above the,within the normal limits and counseling was done. and patient instructed to follow-up with the primary care physician. -Patient was not identified as an unhealthy alcohol user
== END ==
LOC: PNWHC3 11:07
PROVIDERS: ATTEND Anesthesiology
DX: Z45.1 Encounter for adjustment and management of infusion pump (principal); M96.1 Postlaminectomy syndrome, not elsewhere classified; Z79.891 Long term (current) use of opiate analgesic
CPT/HCPCS: 62370; 99211

== ENCOUNTER → 2020-02-08 | Day surgery (SDC) | payer MEDICARE, BC ==
--- NOTE | 2020-02-08 07:27 | P.PCN ---
Date of Procedure: 02/08/20 Procedure(s) Performed: OPERATION: Intrathecal pain pump analysis, programming and reprogramming, and intrathecal pain pump refill. PREOPERATIVE DIAGNOSES: 1. near empty intrathecal pain pump time for refill. 2. 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 ANESTHESIA: None. CONDITION: Stable. Description of the procedure; Intrathecal pain pump analysed ,it showed patient currently had reservoir volume 13.5 mL. The patient is receiving medication Dilaudid 5 mg/ ml, and bupivacaine concentr ation 2 mg per mL Patient receiving daily dose of Dilaudid 3.09 mg/day . Bupivacaine 1.23 mg per day , patient continued to have severe low back pain and she continued to have intractable severe low back pain, with radiation to the right buttock Pain is not well controlled , patient using medication for breakthrough pain Percocet 10/325 every 6 hours orally The location of the pump ( Left Buttuck ) Prepped with chlorhexidine x3 , then using 22-gauge needle [employer] kit advanced through the pump port, Total of 14 ml removed from the pump, expected volume 9.6 ml , the pump refilled with the new medication total volume 40 ml . The concentration of Dilaudid [ 5 ] mg /ml , and bupivacaine 2 mg per mL, patient continued to have severe low back pain, more prominent on the left side, Patient will continue to receive the daily dose of intrathecal Dilaudid 3.09 mg per day, and bupivacaine 1.3 mg per day Patient given prescription for Percocet 10/325 every 6 hours, dispensed 120 with one refill and patient will follow up with the pain clinic in 2 months Labs reviewed and it was appropriate. Physical Examinations : -Constitutiona : Cooperative , not in acute distress . -HEENT : nech : supple , no Lymphadenopathy , normal thyroid size . : eyes : no ptosis , no icterus, no photophobia . . - neurologic : Cranial nerve II to XII intact , no focal neurological deffecit . -psychatric : alert , oriented X 3 , appropriate affect , intact judgment and insight . -Lymphatic : no Lymphadenopathy . - musculoskeltal : Lumber spine moter stegnth lower extremities ,thigh and legs 4/5 Right side , 4/5 Left side. - PQRS measures = - Patient's medications are documented in the chart. -Tobacco use is negative and counseling.Given. -Patient's has not received pneumococcal vaccine. -Advanced care planning discussed, patient not eligible. -Opiate contract signed. -Pain positive and follow-up visit/procedure is scheduled. -Patient's blood pressure measured 149/87 and documented in the record ,and patient will follow up with the primary care. -Patient's weight was measured and body mass index [ 30 ] above the normal limits, and patient instructed to follow-up with the primary care physician. -Patient was not identified as an unhealthy alcohol user
[2020-02-08 08:16] VITALS: BP 149/87; PULSE 62; RESP 18; TEMP 98.7
== END ==
LOC: PNWHC3 06:44
PROVIDERS: ATTEND Specialist
DX: Z45.1 Encounter for adjustment and management of infusion pump (principal); Z79.891 Long term (current) use of opiate analgesic; M96.1 Postlaminectomy syndrome, not elsewhere classified
CPT/HCPCS: 62370

== ENCOUNTER → 2020-02-08 | Outpatient (CLI) | payer MEDICARE, BC ==
--- NOTE | 2020-02-08 07:57 | XR ---
EXAMINATION TYPE: XR lumbar spine 2 or 3V DATE OF EXAM: 02/08/2020 COMPARISON: 12/14/2019 HISTORY: Back pain history of surgery TECHNIQUE: Three-view lumbar spine FINDINGS: There 5 lumbar-type vertebral bodies. Pedicles screws and fixation rods are present through out the lumbar spine. Bone buttressing is evident. Disc spacers present through the lumbar spine.. Th ere is loss of disc height T12-L1. Vertebral body heights are preserved. IMPRESSION: 1. Postsurgical changes within the lumbar spine. No significant interval changes evident.
== END | disposition home or self-care (01) ==
LOC: RADXRMAIN 07:27
DX: M48.061 Spinal stenosis, lumbar region without neurogenic claudication (principal); Z98.890 Other specified postprocedural states
CPT/HCPCS: 72100

== ENCOUNTER → 2020-04-03 | Day surgery (SDC) | payer MEDICARE, BC ==
--- NOTE | 2020-04-03 14:49 | P.PCN ---
Date of Procedure: 04/03/20 Procedure(s) Performed: OPERATION: Intrathecal pain pump analysis, programming and reprogramming, and intrathecal pain pump refill. PREOPERATIVE DIAGNOSES: 1. near empty intrathecal pain pump time for refill. 2. 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 ANESTHESIA: None. CONDITION: Stable. Description of the procedure; Intrathecal pain pump analysed ,it showed patient currently had reservoir volume 5.8 mL. The patient is receiving medication Dilaudid 5 mg/ ml, and bupivacaine concentration 2 mg per mL Patient receiving daily dose of Dilaudid 3.09 mg/day . Bupivacaine 1.23 mg per day , patient continued to have severe low back pain and she continued to have intractable severe low back pain, with radiation to the right buttock Pain is not well controlled , patient using medication for breakthrough pain Percocet 10/325 every 6 hours orally The location of the pump ( Left Buttuck ) Prepped with chlorhexidine x3 , then using 22-gauge needle IIZI group kit advanced through the pump port, Total of 14 ml removed from the pump, expected volume 7 ml , the pump refilled with the new medication total volume 40 ml . The concentration of Dilaudid [ 5 ] mg /ml , and bupivacaine 2 mg per mL, patient continued to have severe low back pain, more prominent on the left side, Because patient complaining of increased pain and she is not able to do any activities secondary to the pain in the low back area I gave the patient intrathecal bolus of Dilaudid 0.3 mg And bupivacaine 1.3 mg over 7 minutes, And because patient complaining of increased pain and increased dyspnea and continuous infusion of the medication to Dilaudid 3.3 mg and bupivacaine 1.3 mg which is equal to 6.6% Increased her daily dose Patient given prescription for Percocet 10/325 every 6 hours, dispensed 120 with one refill and patient will follow up with the pain clinic in 2 months Labs reviewed and it was appropriate. Patient is already scheduled to follow up on the Dr. Qiu neurosurgy Physical Examinations : -Constitutiona : Cooperative , not in acute distress . -HEENT : nech : supple , no Lymphadenopathy , normal thyroid size . : eyes : no ptosis , no icterus, no photoph obia . . - neurologic : Cranial nerve II to XII intact , no focal neurological deffecit . -psychatric : alert , oriented X 3 , appropriate affect , intact judgment and insight . -Lymphatic : no Lymphadenopathy . - musculoskeltal : Lumber spine moter stegnth lower extremities ,thigh and legs 4/5 Right side , 4/5 Left side. - PQRS measures = - Patient's medications are documented in the chart. -Tobacco use is negative and counseling.Given. -Patient's has not received pneumococcal vaccine. -Advanced care planning discussed, patient not eligible. -Opiate contract signed. -Pain positive and follow-up visit/procedure is scheduled. -Patient's blood pressure measured elevated and documented in the record ,and patient will follow up with the primary care. -Patient's weight was measured and body mass index [ 29.3] above the normal limits, and patient instructed to follow-up with the primary care physician. -Patient was not identified as an unhealthy alcohol user
== END ==
LOC: PNWHC3 13:50
PROVIDERS: ATTEND Specialist
DX: Z45.1 Encounter for adjustment and management of infusion pump (principal); M96.1 Postlaminectomy syndrome, not elsewhere classified; Z79.891 Long term (current) use of opiate analgesic
CPT/HCPCS: 80307; 62370; G0482

== ENCOUNTER → 2020-04-19 | Outpatient (CLI) | payer MEDICARE, BC ==
--- NOTE | 2020-04-19 12:34 | MR ---
EXAMINATION TYPE: MR lumbar spine wo con DATE OF EXAM: 04/19/2020 COMPARISON: 06/25/2017 HISTORY: 64-year-old female M48.061 Spinal Stenosis, severe Lower back pain. Left Sciatic Pain. TECHNIQUE: Multiplanar, multisequence images of the lumbar spine were acquired. FINDINGS: Technologist notes that the patient was in excessive pain and could not complete the axial sequences. Extensive metal hardware artifact. There is L1-L5 posterior lumbar fusion demonstrated, extending fro m the previous L3-L5 fusion in 2017. Fixed grade 1 anterolisthesis at L5-S1 is unchanged. Remaining alignment is maintained. Conus medullaris is normally located. Above the fusion at T12-L1, there is degenerative disc disease with disc bulging, ligamentum flavum t hickening, facet arthropathy. Mild spinal canal stenosis here with mild bilateral neuroforaminal sten osis. At the fused L1-L2 level, no spinal canal stenosis. Limited assessment of the neuroforamen. At least mild bilateral neuroforaminal narrowing. At the fused L2-L3 level, no spinal canal stenosis. Excessive artifact for adequate assessment of the neuroforamen. At the fused L3-L4, no spinal canal stenosis. Right neural foramen is nondiagnostic. At least mild ne ural foraminal narrowing on the left. At the fused L4-L5 level, there is a fixed grade 1 anterolisthesis. No spinal canal stenosis. Mild ri ght neuroforaminal stenosis. At L5-S1, below the fusion, there is diffuse disc bulge with hypertrophic facet arthropathy. Unable t o exclude a severe right neuroforaminal stenosis. Moderate left neuroforaminal stenosis with possible impingement of the exiting left L5 nerve root, increased from prior. No spinal canal stenosis. New Modic type I edematous endplate change above the fusion at T12-L1. IMPRESSION: 1. The patient was in excessive pain and could only complete sagittal sequences. 2. Very limited assessment due to extensive L1-L5 posterior fusion hardware and resultant artifacts. 3. Above the fusion at T12-L1, there is mild narrowing of the spinal canal and new edematous Modic ty pe I endplate change. Mild bilateral neuroforaminal stenosis at this level. 4. Below the fusion at L5-S1, there is bulging disc with hypertrophic facet arthropathy. Unable to ex clude a severe right neuroforaminal stenosis. Moderate left neuroforaminal stenosis (increased from p rior) with possible impingement of the exiting left L5 nerve root. 5. Many of the neuroforamen along the fused levels are nondiagnostic due to metal artifact. No signif icant spinal canal stenosis
== END | disposition home or self-care (01) ==
LOC: RADMRIMAIN 10:36
DX: M48.061 Spinal stenosis, lumbar region without neurogenic claudication (principal)
CPT/HCPCS: 72148

== ENCOUNTER → 2020-05-15 | Outpatient (CLI) | payer MEDICARE, BC ==
--- NOTE | 2020-05-15 09:10 | MR ---
EXAMINATION TYPE: MR lumbar spine wo con DATE OF EXAM: 05/15/2020 COMPARISON: 04/19/2020 HISTORY: Back pain TECHNIQUE: T1 and T2 axial and sagittal images of the lumbar spine are submitted. FINDINGS: There is severe motion artifact which results in nearly nondiagnostic exam. Grossly no abno rmal signal within the spinal cord. Postsurgical changes are seen extending from levels L1-L5 with a grade 1 anterolisthesis of L4 on L5. At T12-L1 there is degenerative disc disease but no canal stenosis. Neural foramina patent. At L1-2 there is nondiagnostic due to artifact At L2-3 there is nondiagnostic due to artifact At L3-4 there is nondiagnostic due to artifact At L4-5 there is grade 1 anterolisthesis with no obvious canal stenosis. Bilateral mild foraminal enc roachment greater on the right. At L5-S1 there is degenerative disc disease with posterior disc protrusion. Facet arthropathy is seen there is mild canal stenosis and moderate bilateral foraminal encroachment. IMPRESSION: 1. Markedly limited exam due to artifact. There is stable postsurgical change with a grade 1 anteroli sthesis L4-L5. Bilateral foraminal encroachment this level. 2. Disc protrusion with facet arthropathy L5-S1 results in mild canal stenosis and moderate bilateral foraminal encroachment.
== END | disposition home or self-care (01) ==
LOC: RADMRIMAIN 08:06
DX: M48.061 Spinal stenosis, lumbar region without neurogenic claudication (principal); M43.16 Spondylolisthesis, lumbar region; M51.27 Other intervertebral disc displacement, lumbosacral region
CPT/HCPCS: 72148

== ENCOUNTER → 2020-05-22 | Day surgery (SDC) | payer MEDICARE, BC ==
[2020-05-22 13:13] VITALS: BP 155/73; PULSE 53; RESP 18; TEMP 98.6
--- NOTE | 2020-05-22 13:47 | P.PCN ---
Date of Procedure: 05/22/20 Procedure(s) Performed: OPERATION: Intrathecal pain pump analysis, programming and reprogramming, and intrathecal pain pump refill. PREOPERATIVE DIAGNOSES: 1. near empty intrathecal pain pump time for refill. 2. 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 ANESTHESIA: None. CONDITION: Stable. Description of the procedure; Intrathecal pain pump analysed ,it showed patient currently had reservoir volume 5.8 mL. The patient is receiving medication Dilaudid 5 mg/ ml, and bupivacaine concentr ation 2 mg per mL Patient receiving daily dose of Dilaudid 3.3 mg/day . Bupivacaine 1.32 mg per day , patient continued to have severe low back pain and she continued to have intractable severe low back pain, with radiation to the right buttock patient had a new MRI done recently and it showed that new herniated disc disease below the level of the fusion, patient already had appointment with Dr. Qiu for evaluation for possible surgical intervention Pain is not well controlled , patient using medication for breakthrough pain Percocet 10/325 every 6 hours orally The location of the pump ( Left Buttuck ) Prepped with chlorhexidine x3 , then using 22-gauge needle Microtask kit advanced through the pump port, Total of 8 ml removed from the pump, expected volume 7,6 ml , the pump refilled with the new medication total volume 40 ml . The concentration of Dilaudid [ 5 ] mg /ml , and bupivacaine 2 mg per mL, patient continued to have severe low back pain, more prominent on the left side, Because patient complaining of increased pain and she is not able to do any activities secondary to the pain in the low back area I gave the patient intrathecal bolus of Dilaudid 0.5 mg over 10 minutes, And because patient complaining of increased pain and increased dyspnea and continuous infusion of the medication to Dilaudid 3.5 mg and bupivacaine 1.4 mg which is equal to 5.9% Increased her daily dose Patient given prescription for Percocet 10/325 every 6 hours, dispensed 120 with one refill and patient will follow up with the pain clinic in 2 months Labs reviewed and it was appropriate. Patient is already scheduled to follow up on the Dr. Qiu neurosurgy Physical Examinations : -Constitutiona : Cooperative , not in acute distress . -HEENT : nech : supple , no Lymphadenopathy , normal thyroid size . : eyes : no ptosis , no icterus, no photophobia . . - neurologic : Cranial nerve II to XII intact , no focal neurological deffecit . -psychatric : alert , oriented X 3 , appropriate affect , intact judgment and insight . -Lymphatic : no Lymphadenopathy . - musculoskeltal : Lumber spine moter stegnth lower extremities ,thigh and legs 4/5 Right side , 4/5 Left side. - PQRS measures = - Patient's medications are documented in the chart. -Tobacco use is negative and counseling.Given. -Patient's has not received pneumococcal vaccine. -Advanced care planning discussed, patient not eligible. -Opiate contract signed. -Pain positive and follow-up visit/procedure is scheduled. -Patient's blood pressure measured elevated and documented in the record ,and patient will follow up with the primary care. -Patient's weight was measured and body mass index [ 29.7] above the normal limits, and patient instructed to follow-up with the primary care physician. -Patient was not identified as an unhealthy alcohol user
== END ==
LOC: PNWHC3 12:57
PROVIDERS: ATTEND Specialist
DX: Z45.1 Encounter for adjustment and management of infusion pump (principal); M96.1 Postlaminectomy syndrome, not elsewhere classified; Z79.891 Long term (current) use of opiate analgesic
CPT/HCPCS: 62370

== ENCOUNTER → 2020-06-28 | Outpatient (CLI) | payer MEDICARE, BC ==
[2020-06-28 12:40] LABS: Partial Thromboplastin Time 28.6 sec (22.0-30.0); Prothrombin Time 10.2 sec (9.0-12.0)
== END | disposition home or self-care (01) ==
LOC: LABPAT 11:43
PROVIDERS: ATTEND Family Medicine
DX: Z01.810 Encounter for preprocedural cardiovascular examination (principal)
CPT/HCPCS: 85610; 85730